=== PATIENT | male | born 1935 | race Caucasian/White ===

== ENCOUNTER 2020-10-31 12:19 | Inpatient (IN) | payer MEDICARE, OTHER, SELFPAY ==
[2020-10-31] VITALS (12 sets, daily range): BP systolic 115–136; BP diastolic 59–82; PULSE 68–102; RESP 18–26; TEMP 36.3–36.8; O2SAT 90–100; BMI 30.4; BMI 30.3
--- NOTE | 2020-10-31 12:41 | RAD_ITS ---
STUDY: X-RAY CHEST REASON FOR EXAM: Male, 84 years old. sob TECHNIQUE: Single AP portable view of the chest. COMPARISON: None. FINDINGS: Poor inspiration with some bibasilar atelectasis. There is no demonstrated pleural abnormality. There is moderate cardiac enlargement. Normal mediastinum and suzette. Normal visualized pulmonary arteries. Normal visualized aortic arch and descending thoracic aorta. Normal visualized thoracic spine. Normal visualized ribs, clavicles, and shoulders. There is no demonstrated abnormality of the visualized soft tissue structures of the upper abdomen. RAD/Chest 1 View (Portable) IMPRESSION: Poor inspiration with some bibasilar atelectasis. Electronically Signed: Sreedhar Carrero MD at 13:39 EDT Tel , Service support ,
--- NOTE | 2020-10-31 12:41 | EKG12_ITS ---
Test Reason : Blood Pressure : / mmHG Vent. Rate : 072 BPM Atrial Rate : 208 BPM P-R Int : 000 ms QRS Dur : 096 ms QT Int : 380 ms P-R-T Axes : -88 131 063 degrees QTc Int : 416 ms Atrial flutter with variable A-V block Right axis deviation Low voltage QRS Cannot rule out Anterior infarct , age undetermined Abnormal ECG Confirmed by CARY CAMACHO, PRAVEENA ([id number]), editor school photograph RAMIRO CURRIE ([id number]) on 11/01/2020 1:03:35 PM Referred By: MONTEZ Confirmed By:PRAVEENA TOWNSEND MD
--- NOTE | 2020-10-31 12:43 | EDS_ITS ---
HPI History of Present Illness Chief Complaint: Shortness of Breath Informant: patient and family Narrative Narrative: 84-year-old male presenting with shortness of breath. This has been progressively worsening over the past couple of weeks. He was diagnosed with CHF on October 11. He was started on Lasix and his HCTZ was stopped at that time. He has gained 18 pounds in the past couple of weeks. Family is concerned about his increasing leg swelling and increasing shortness of breath. His shortness of breath is worse with exertion. He denies chest pain. Denies fever. He had Covid vaccines in June and July. He has a history of A. fib on Coumadin. 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 Prior similar symptoms: Yes Recent Illness/Hospitalization: No PFSH PFSH Medical History Atrial fibrillation CHF exacerbation Congestive heart failure (CHF) Diabetes History of alcohol use History of CVA (cerebrovascular accident) Hyperlipemia Hypertension Macular degeneration Smoker Home Medications Cardura XL 4 mg PO DAILY 12/18/13 [History Last Taken Unknown] PreserVision AREDS-2 1 ea PO DAILY 12/18/13 [History Last Taken Unknown] aspirin 81 mg PO DAILY@0800 12/18/13 [History Last Taken Unknown] atorvastatin 20 mg PO QHS 12/18/13 [History Last Taken Unknown] glimepiride 2 mg PO DINNER 12/18/13 [History Last Taken Unknown] losartan 150 mg PO DAILY 12/18/13 [History Last Taken Unknown] metformin 1,000 mg PO BIDCM 12/18/13 [History Last Taken Unknown] furosemide 20 mg PO DAILY 10/31/20 [History Last Taken Unknown] metoprolol tartrate 50 mg PO BID 10/31/20 [History Last Taken Unknown] verapamil 180 mg PO BID 10/31/20 [History Last Taken Unknown] warfarin [Coumadin] 2.5 mg PO MO 10/31/20 [History Last Taken Unknown] warfarin [Coumadin] 5 mg PO SUTUWETHFRSA 10/31/20 [History Last Taken Unknown] Allergy/AdvReac Type Severity Reaction Status Date / Time atenolol Allergy Other Verified 10/31/20 12:21 Social History Smoking Status: Current every day smoker ROS ROS ED Constitutional Constitutional ED: Denies fever(s) Eyes Eyes: Denies change in vision ENT ENT ED: Denies rhinorrhea or sore throat Cardiovascular Cardiovascular: Denies chest pain or palpitations Respiratory/Chest Respiratory/Chest: Reports cough and dyspnea Gastrointestinal Gastrointestinal: Denies abdominal pain, diarrhea, nausea or vomiting Genitourinary Genitourinary ED: Denies dysuria Musculoskeletal Musculoskeletal: Denies myalgias Integumentary Denies rash Neurologic Neurologic: Denies headache(s) Endocrine Endocrinology: Denies polyuria EXAM Physical Exam Const Vital Signs: 10/31/20 12:21 10/31/20 12:52 10/31/20 13:06 Temperature 97.3 F L 97.3 F L Temperature Source Temporal Oral Pulse Rate 102 H 68 Respiratory Rate 21 H 26 H Respiratory Effort Short of Breath Respiratory Depth Normal Respiratory Pattern Normal Blood Pressure 128/64 H 115/63 Blood Pressure Mean 85 80 Pulse Ox 90 100 99 Oxygen Delivery Method Room Air Nasal Cannula Nasal Cannula Oxygen Flow Rate (L/min) 2 2 Positive well nourished and well developed General Appearance ED: well developed HEENT Reports normocephalic and head/scalp atraumatic Eyes PERRL and EOMs intact bilaterally Neck supple General: Negative for tenderness Chest Wall inspection of chest normal Resp normal respiratory effort and clear to auscultation bilaterally Cardio regular rate and regular rhythm GI non-tender Inspection: abdominal distention Palpation: soft; Negative for guarding or rebound tenderness present no CVA tenderness Extremity normal to inspection Extremity Narrative: Symmetric bilateral lower extremity edema General Extremety ED: Yes edema General Extremity: edema Neuro oriented x3 Sensorium / Orientation: alert Psych mental status grossly normal Skin no rashes or lesions noted MDM MDM MDM Narrative Medical decision making narrative: Patient was given Lasix IV. He is resting comfortably on reevaluation. Will discuss with hospitalist for admission. Lab Data Attestation: I reviewed the patient's lab results. Labs: Laboratory Results - last 24 hr 10/31/20 10/31/20 10/31/20 12:42 12:42 12:42 WBC 7.5 RBC 4.80 Hgb 13.2 Hct 41.3 MCV 86.0 MCH 27.5 MCHC 32.0 RDW Std Deviation 51.1 H RDW Coeff of Lennie 16.3 H Plt Count 202 MPV 9.9 Immature Gran % (Auto) 0.300 Neut % (Auto) 75.9 H Lymph % (Auto) 13.4 L [place] % (Auto) 9.7 Eos % (Auto) 0.3 Baso % (Auto) 0.4 Absolute Neuts (auto) 5.7 Absolute Lymphs (auto) 1.01 Nucleated RBC % 0 PT 41.9 H INR 4.5 H* Sodium 133 L Potassium 4.5 Chloride 95 L Carbon Dioxide 31.0 Anion Gap 7 BUN 29 H Creatinine 1.39 H Estim Creat Clear Calc 43.64 Est GFR (MDRD) Af Amer 63 Est GFR (MDRD) Non-Af 52 L BUN/Creatinine Ratio 20.9 H Glucose 247 H Calcium 9.0 Total Bilirubin 0.50 AST 26 ALT 44 Alkaline Phosphatase 127 H Troponin I < 0.015 B-Natriuretic Peptide Total Protein 7.1 Albumin 3.4 Globulin 3.7 Albumin/Globulin Ratio 0.9 10/31/20 12:42 WBC RBC Hgb Hct MCV MCH MCHC RDW Std Deviation RDW Coeff of Lennie Plt Count MPV Immature Gran % (Auto) Neut % (Auto) Lymph % (Auto) [place] % (Auto) Eos % (Auto) Baso % (Auto) Absolute Neuts (auto) Absolute Lymphs (auto) Nucleated RBC % PT INR Sodium Potassium Chloride Carbon Dioxide Anion Gap BUN Creatinine Estim Creat Clear Calc Est GFR (MDRD) Af Amer Est GFR (MDRD) Non-Af BUN/Creatinine Ratio Glucose Calcium Total Bilirubin AST ALT Alkaline Phosphatase Troponin I B-Natriuretic Peptide 254.5 H Total Protein Albumin Globulin Albumin/Globulin Ratio Radiography Chest X-Ray - ED: 1 View, Read by ED Physician and Read by Radiologist Diagnostic Testing: Radiology Impression Chest X-Ray 10/31/20 12:41 IMPRESSION: Poor inspiration with some bibasilar atelectasis. Electronically Signed: Sreedhar Carrero MD at 13:39 EDT Tel , Service support , EKG Initial EKG: Attestation: I personally reviewed and interpreted this EKG as follows: Interpretation: Atrial Flutter Prior EKG tracings: available for review Prior: Unchanged Discharge Plan Triage Chief Complaint: Shortness of Breath ED Provider: Xochitl Richards Dx/Rx/DC Orders Clinical Impression: CHF exacerbation Prescriptions: No Action atorvastatin 20 MG tablet 20 mg PO QHS RF: 0 glimepiride 2 MG tablet 2 mg PO DINNER RF: 0 metformin 1,000 MG tablet 1,000 mg PO BIDCM RF: 0 aspirin 81 MG tablet,chewable 81 mg PO DAILY@0800 RF: 0 losartan 100 MG tablet 150 mg PO DAILY RF: 0 Cardura XL 4 MG tablet extended release 24hr 4 mg PO DAILY RF: 0 PreserVision AREDS-2 1 EACH capsule 1 ea PO DAILY RF: 0 verapamil 180 mg tablet extended release 180 mg PO BID RF: 0 warfarin [Coumadin] 2.5 mg Tablet 2.5 mg PO MO RF: 0 warfarin [Coumadin] 5 mg Tablet 5 mg PO SUTUWETHFRSA RF: 0 metoprolol tartrate 50 mg tablet 50 mg PO BID RF: 0 furosemide 20 mg tablet 20 mg PO DAILY RF: 0 Primary Care Provider: Carl Loyd Referrals: Carl Loyd MD [Primary Care Provider] - Disposition Disposition: Acute Care Hospital [facility]
[2020-10-31 12:54] LABS: Absolute Lymphocyte Count 1.01 X10^3/uL (0.83-4.51); Absolute Neutrophil Count 5.7 X10^3/uL (2.0-7.7); Basophil# 0.03 X10^3/uL; Basophil% 0.4 % (0-1); Eosinophil# 0.02 X10^3/uL; Eosinophils% 0.3 % (0-5); Hematocrit 41.3 % (40-54); Hemoglobin 13.2 g/dL (13.0-16.5); Lymphocyte # 1.01 X10^3/ul (0.83-4.51); Lymphocyte % 13.4 % (19-41); Mean Corpuscular Hgb 27.5 pg (27.0-32.0); Mean Platelet Vol. 9.9 fl (6.2-12.0); Monocyte# 0.73 X10^3/uL; Monocyte% 9.7 % (0-10); NRBC Flagged by Analyzer 0 % (0-5); Neutrophil % 75.9 % (47-70); Platelet Count 202 K/mm3 (150-450); RBC Distribution Width CV 16.3 % (11.6-14.6); RBC Distribution Width SD 51.1 fl (35.1-43.9); White Blood Count 7.5 K/mm3 (4.4-11.0)
[2020-10-31 13:11] LABS: BUN 29 mg/dL (7-18); Creatinine, Serum 1.39 mg/dL (0.70-1.30); EST Glomerular Filtration Rate 52 mL/min (>60); Estimated Creatinine Clearance 43.64 ml/min; Glucose 247 mg/dL (74-106)
[2020-10-31 13:12] LABS: ALB/GLOB Ratio 0.9 RATIO (0.9-2.4); AST(SGOT) 26 U/L (15-37); Alanine Aminotransfer ALT/SGPT 44 U/L (16-61); Albumin, Serum 3.4 g/dL (3.2-5.0); Alkaline Phosphatase 127 U/L (45-117); Anion Gap 7 (5-15); BUN/Creat Ratio 20.9 RATIO (10-20); Chloride 95 mmol/L (98-107); Est Glom Filt Rate - Afr Amer 63 mL/min (>60); Globulin 3.7 g/dL (2.2-4.2); Potassium 4.5 mmol/L (3.5-5.1); Protein, Total 7.1 g/dL (6.4-8.2); Sodium Level 133 mmol/L (136-145)
[2020-10-31 13:15] LABS: Prothrombin Time (Protime)PT. 41.9 SECONDS (11.7-14.9)
[2020-10-31 13:24] LABS: International Normalized Ratio 4.5
[2020-10-31 13:38] LABS: BNP,B-Type NATRIURETIC PEPTIDE 254.5 pg/mL (0-100)
--- NOTE | 2020-10-31 14:02 | HP.PCM.HOS_ITS ---
Documented by User: Chen Benjamin NP, [employer] 10/31/20 14:26 HPI - General HPI Narrative LIV GAGNON, is a 84 M who presents who presents to the emergency room due to worsening shortness of breath and edema. Patient reports this is been ongoing for the past few months however recently worsened. He reports worsening orthopnea, increased weight gain, lower extremity swelling. He reports approximate 15 to 20 pound weight gain over the past month or more. He reports he had a recent echocardiogram 10/14/2020 which showed a leaky valve. He states he was placed on Lasix by his primary care provider which has not improved his symptoms. He is to follow-up with cardiology in [place] in November. He denies history of heart failure. Denies chest pain. Reports intermittent cough which is recently worsened however somewhat chronic in nature as he has extensive smoking history. Denies productive cough, fever, chills. Patient has a past medical history of chronic atrial fibrillation on anticoagulation with Coumadin, history of CVA, chronic kidney disease stage III, type 2 diabetes mellitus, brain meningioma, BPH, tobacco dependence. PFSH Medical History Atrial fibrillation CHF exacerbation Congestive heart failure (CHF) Diabetes History of alcohol use History of CVA (cerebrovascular accident) Hyperlipemia Hypertension Macular degeneration Smoker Home Medications Cardura XL 4 mg PO DAILY 12/18/13 [History Last Taken Unknown] PreserVision AREDS-2 1 ea PO DAILY 12/18/13 [History Last Taken Unknown] aspirin 81 mg PO DAILY@0800 12/18/13 [History Last Taken Unknown] atorvastatin 20 mg PO QHS 12/18/13 [History Last Taken Unknown] glimepiride 2 mg PO DINNER 12/18/13 [History Last Taken Unknown] losartan 150 mg PO DAILY 12/18/13 [History Last Taken Unknown] metformin 1,000 mg PO BIDCM 12/18/13 [History Last Taken Unknown] furosemide 20 mg PO DAILY 10/31/20 [History Last Taken Unknown] metoprolol tartrate 50 mg PO BID 10/31/20 [History Last Taken Unknown] verapamil 180 mg PO BID 10/31/20 [History Last Taken Unknown] warfarin [Coumadin] 2.5 mg PO MO 10/31/20 [History Last Taken Unknown] warfarin [Coumadin] 5 mg PO SUTUWETHFRSA 10/31/20 [History Last Taken Unknown] Allergy/AdvReac Type Severity Reaction Status Date / Time atenolol Allergy Other Verified 10/31/20 12:21 other (Denies known maternal and paternal family history including cardiac history.) no surgical history Social History (Updated 10/31/20 @ 14:18 by Chen Benjamin NP, [employer]) household members: spouse Smoking Status: Current every day smoker substance use type: does not use ROS Constitutional Constitutional: Reports change in weight, fatigue and other Details: +15-20lb ; Denies chills, fever(s) or weakness Cardiovascular Cardiovascular: Reports edema; Denies chest pain, lightheadedness, palpitations or syncope Respiratory/Chest Respiratory/Chest: Reports cough, shortness of breath at rest and shortness of breath with exertion; Denies dyspnea, productive cough or wheezing Gastrointestinal Gastrointestinal: Denies abdominal pain, constipation, diarrhea, nausea or vomiting Genitourinary Genitourinary: Denies burning urination, difficulty urinating, dysuria, hematuria, urinary frequency, urinary incontinence or urinary urgency Musculoskeletal Musculoskeletal: Denies back pain or joint pain Neurologic Neurologic: Denies abnormal speech, confusion, dizziness, focal weakness, numbness, paresthesias, seizure-like activity or syncope Psychiatric Psychiatric: Denies anxiety or depression Hematologic/Lymphatic Hematologic/Lymphatic: Denies anemia, easy bleeding or easy bruising Allergic/Immunologic Allergic/Immunologic: Denies hives or asthma Vital Signs Vital Signs Vital Signs: 10/31/20 12:21 10/31/20 12:52 10/31/20 13:06 Temperature 97.3 F L 97.3 F L Temperature Source Temporal Oral Pulse Rate 102 H 68 Respiratory Rate 21 H 26 H Respiratory Effort Short of Breath Respiratory Depth Normal Respiratory Pattern Normal Blood Pressure 128/64 H 115/63 Blood Pressure Mean 85 80 Pulse Ox 90 100 99 Oxygen Delivery Method Room Air Nasal Cannula Nasal Cannula Oxygen Flow Rate (L/min) 2 2 Physical Exam Const alert, oriented x3 and no apparent distress Orientation / Consciousness: awake, oriented to person, oriented to place and oriented to time HEENT normocephalic and moist oral mucous membranes Eyes PERRL, EOMs intact bilaterally and conjunctivae normal Neck no lymphadenopathy Resp clear to auscultation bilaterally Effort and Inspection: decreased respiratory effort Auscultation: diminished lung sounds Cardio Cardio Narrative: atrial flutter, rate controlled Peripheral Pulses: pulses 2+ throughout GI normal to inspection, nondistended, normoactive bowel sounds, non-tender and non-distended Extremity normal to inspection General Extremity: edema bilateral lower extremity Details: moderate Skin no rashes or lesions noted Lesions: no lesions Rashes: no rashes Trauma: no lacerations or abrasions Neuro oriented x3 Sensorium / Orientation: awake and alert Psych affect normal Lab / Micro Data Result Diagrams: 10/31/20 12:42 10/31/20 12:42 Labs: Laboratory Results - last 24 hr 10/31/20 10/31/20 10/31/20 12:42 12:42 12:42 WBC 7.5 RBC 4.80 Hgb 13.2 Hct 41.3 MCV 86.0 MCH 27.5 MCHC 32.0 RDW Std Deviation 51.1 H RDW Coeff of Lennie 16.3 H Plt Count 202 MPV 9.9 Immature Gran % (Auto) 0.300 Neut % (Auto) 75.9 H Lymph % (Auto) 13.4 L [place] % (Auto) 9.7 Eos % (Auto) 0.3 Baso % (Auto) 0.4 Absolute Neuts (auto) 5.7 Absolute Lymphs (auto) 1.01 Nucleated RBC % 0 PT 41.9 H INR 4.5 H* Sodium 133 L Potassium 4.5 Chloride 95 L Carbon Dioxide 31.0 Anion Gap 7 BUN 29 H Creatinine 1.39 H Estim Creat Clear Calc 43.64 Est GFR (MDRD) Af Amer 63 Est GFR (MDRD) Non-Af 52 L BUN/Creatinine Ratio 20.9 H Glucose 247 H Calcium 9.0 Total Bilirubin 0.50 AST 26 ALT 44 Alkaline Phosphatase 127 H Troponin I < 0.015 B-Natriuretic Peptide Total Protein 7.1 Albumin 3.4 Globulin 3.7 Albumin/Globulin Ratio 0.9 10/31/20 12:42 WBC RBC Hgb Hct MCV MCH MCHC RDW Std Deviation RDW Coeff of Lennie Plt Count MPV Immature Gran % (Auto) Neut % (Auto) Lymph % (Auto) [place] % (Auto) Eos % (Auto) Baso % (Auto) Absolute Neuts (auto) Absolute Lymphs (auto) Nucleated RBC % PT INR Sodium Potassium Chloride Carbon Dioxide Anion Gap BUN Creatinine Estim Creat Clear Calc Est GFR (MDRD) Af Amer Est GFR (MDRD) Non-Af BUN/Creatinine Ratio Glucose Calcium Total Bilirubin AST ALT Alkaline Phosphatase Troponin I B-Natriuretic Peptide 254.5 H Total Protein Albumin Globulin Albumin/Globulin Ratio Radiology Impression Chest X-Ray 10/31/20 12:41 IMPRESSION: Poor inspiration with some bibasilar atelectasis. Electronically Signed: Sreedhar Carrero MD at 13:39 EDT Tel , Service support , Assessment & Plan Assessment/Plan (1) CHF exacerbation: PLAN: 1. Acute hypoxic respiratory insufficiency secondary to acute heart failure with preserved ejection fraction-BNP 254. Patient requiring 2 L supplemental oxygen. Recent echocardiogram September 2020 at [facility], attempted to obtain records via [employer] however no official report found. Will request records. Follow-up documentation states ejection fraction normal. Right-sided enlargement possibly from leaky valve. IV Lasix. Strict I&O. Daily weight. Trend enzymes. Check TSH, mag. Rolando wraps bilateral lower extremities. 2. Hypertension-stable, on losartan, metoprolol, verapamil. 3. Hyperlipidemia-continue statin. 4. Chronic atrial fibrillation on anticoagulation with Coumadin-hold Coumadin, trend INR. INR at admission 4.5. Rate controlled. Continue metoprolol. 5. History of CVA-on aspirin, statin, Coumadin. 6. Chronic kidney disease stage IIIa-at baseline, trend BMP. 7. Type 2 diabetes mellitus-hold oral regimen. Accu-Cheks with sliding scale i nsulin. 8. Brain meningioma-continue outpatient follow-up with neurology. 9. BPH-on Cardura. 10. Tobacco dependence-encouraged cessation. Declines nicotine replacement patch. DVT prophylaxis-Coumadin on hold, supratherapeutic INR CODE STATUS: Discussed in length with patient and who is healthcare primary turning differences in CODE STATUS including full code, DNR CCA and DNR CC. Patient elects DNR CCA no intubation. This patient was seen by SHWETHA Norris under the supervision of Dr. Medina. Documented by User: Dr. Melissa Medina MD 10/31/20 14:36 PFS Medical History Atrial fibrillation CHF exacerbation Congestive heart failure (CHF) Diabetes History of alcohol use History of CVA (cerebrovascular accident) Hyperlipemia Hypertension Macular degeneration Smoker Home Medications Cardura XL 4 mg PO DAILY 12/18/13 [History Last Taken Unknown] PreserVision AREDS-2 1 ea PO DAILY 12/18/13 [History Last Taken Unknown] aspirin 81 mg PO DAILY@0800 12/18/13 [History Last Taken Unknown] atorvastatin 20 mg PO QHS 12/18/13 [History Last Taken Unknown] glimepiride 2 mg PO DINNER 12/18/13 [History Last Taken Unknown] losartan 150 mg PO DAILY 12/18/13 [History Last Taken Unknown] metformin 1,000 mg PO BIDCM 12/18/13 [History Last Taken Unknown] furosemide 20 mg PO DAILY 10/31/20 [History Last Taken Unknown] metoprolol tartrate 50 mg PO BID 10/31/20 [History Last Taken Unknown] verapamil 180 mg PO BID 10/31/20 [History Last Taken Unknown] warfarin [Coumadin] 2.5 mg PO MO 10/31/20 [History Last Taken Unknown] warfarin [Coumadin] 5 mg PO SUTUWETHFRSA 10/31/20 [History Last Taken Unknown] Allergy/AdvReac Type Severity Reaction Status Date / Time atenolol Allergy Other Verified 10/31/20 12:21 Social History (Updated 10/31/20 @ 14:18 by Chen Benjamin NP, [employer]) household members: spouse Smoking Status: Current every day smoker substance use type: does not use Lab / Micro Data Result Diagrams: 10/31/20 12:42 10/31/20 12:42
[2020-10-31 14:16] LABS: Magnesium 1.7 mg/dL (1.6-2.6)
[2020-10-31] MEDS: Furosemide 40 MG/4 ML Vial IV ×2 (14:27→17:06)
[2020-10-31 14:51] LABS: Bedside Glucose 173 mg/dL (70-110)
[2020-10-31 15:21] LABS: Thyroid Stim Hormone (TSH) 3.27 uIU/mL (0.358-3.74)
[2020-10-31 16:11] LABS: Bedside Glucose 150 mg/dL (70-110)
[2020-10-31] MEDS: Albuterol 2.5 MG/3 ML VIAL.NEB. INHALATION (16:18)
[2020-10-31] MEDS: Insulin Lispro 100 UNIT/ML INSULN.PEN SC ×2 (16:22→22:33)
[2020-10-31] MEDS: Doxazosin 4 MG Tablet 8 MG PO (21:05)
[2020-10-31] MEDS: Famotidine 20 MG Tablet PO (21:06)
[2020-10-31] MEDS: Atorvastatin Calcium 20 MG Tablet PO (21:06)
[2020-10-31] MEDS: Verapamil SR 180 MG CAPSULE PO (21:06)
[2020-10-31] MEDS: Metoprolol Tartrate 50 MG Tablet PO (21:06)
[2020-10-31 22:41] LABS: Bedside Glucose 168 mg/dL (70-110)
[2020-11-01] VITALS (17 sets, daily range): BP systolic 110–136; BP diastolic 44–73; PULSE 60–146; RESP 16–22; TEMP 36.7–37.1; O2SAT 2–97
[2020-11-01 05:58] LABS: Absolute Lymphocyte Count 1.19 X10^3/uL (0.83-4.51); Absolute Neutrophil Count 3.2 X10^3/uL (2.0-7.7); Basophil# 0.03 X10^3/uL; Basophil% 0.6 % (0-1); Eosinophil# 0.04 X10^3/uL; Eosinophils% 0.8 % (0-5); Hematocrit 37.5 % (40-54); Hemoglobin 12.1 g/dL (13.0-16.5); Lymphocyte # 1.19 X10^3/ul (0.83-4.51); Lymphocyte % 22.7 % (19-41); Mean Corp Hgb Conc 32.3 g/dL (32-36); Mean Corpuscular Hgb 28.1 pg (27.0-32.0); Mean Platelet Vol. 10.2 fl (6.2-12.0); Monocyte% 15.3 % (0-10); NRBC Flagged by Analyzer 0 % (0-5); Neutrophil # 3.16 X10^3/uL (2.7-7.7); Neutrophil % 60.2 % (47-70); Platelet Count 187 K/mm3 (150-450); RBC Distribution Width CV 16.2 % (11.6-14.6); RBC Distribution Width SD 51.6 fl (35.1-43.9); Red Blood Count 4.31 M/mm3 (4.6-6.2); White Blood Count 5.2 K/mm3 (4.4-11.0)
[2020-11-01 06:10] LABS: Prothrombin Time (Protime)PT. 40.2 SECONDS (11.7-14.9)
[2020-11-01 06:11] LABS: International Normalized Ratio 4.3
[2020-11-01 06:28] LABS: ALB/GLOB Ratio 0.9 RATIO (0.9-2.4); AST(SGOT) 22 U/L (15-37); Alanine Aminotransfer ALT/SGPT 42 U/L (16-61); Alkaline Phosphatase 93 U/L (45-117); Anion Gap 4 (5-15); BUN 35 mg/dL (7-18); BUN/Creat Ratio 24.3 RATIO (10-20); Calcium,Total 8.5 mg/dL (8.5-10.1); Chloride 98 mmol/L (98-107); Cholesterol 75 mg/dL (200); Creatinine, Serum 1.44 mg/dL (0.70-1.30); EST Glomerular Filtration Rate 50 mL/min (>60); Est Glom Filt Rate - Afr Amer 60 mL/min (>60); Estimated Creatinine Clearance 40.84 ml/min; Globulin 3.2 g/dL (2.2-4.2); Glucose 100 mg/dL (74-106); High Density Lipoprotein 40 mg/dL; Potassium 4.1 mmol/L (3.5-5.1); Protein, Total 6.2 g/dL (6.4-8.2); Sodium Level 136 mmol/L (136-145); Triglycerides 61 mg/dL; Very Low Density Lipoprotein 12 mg/dL (5-40)
[2020-11-01 07:06] LABS: Bedside Glucose 115 mg/dL (70-110)
[2020-11-01] MEDS: Famotidine 20 MG Tablet PO ×2 (08:24→21:59)
[2020-11-01] MEDS: Verapamil SR 180 MG CAPSULE PO ×2 (08:24→21:58)
[2020-11-01] MEDS: Aspirin 81 MG TAB.CHEW PO (08:24)
[2020-11-01] MEDS: Losartan Potassium 50 MG Tablet 150 MG PO (08:24)
[2020-11-01] MEDS: Furosemide 40 MG/4 ML Vial IV ×2 (08:25→17:17)
[2020-11-01] MEDS: 0.9% Saline Lock 10 ML Syringe IV ×2 (08:25→17:17)
[2020-11-01] MEDS: Metoprolol Tartrate 50 MG Tablet PO ×2 (08:25→21:58)
[2020-11-01] MEDS: Insulin Lispro 100 UNIT/ML INSULN.PEN SC ×3 (10:51→21:57)
[2020-11-01 10:56] LABS: Bedside Glucose 229 mg/dL (70-110)
--- NOTE | 2020-11-01 11:30 | PN.HOSP_ITS ---
Documented by User: Chen Benjamin NP, [employer]-C 11/01/20 11:41 Subjective Subjective: Patient seen and examined. Reports improvement in shortness of breath. Remains on 3 L supplemental oxygen. Patient reports lower extremity swelling improving. Objective Data Objective Data Vital Signs: Vital Signs Temp Pulse Resp BP Pulse Ox 98.4 F 110 H 18 130/71 H 94 11/01/20 08:20 11/01/20 08:25 11/01/20 08:20 11/01/20 08:25 11/01/20 08:37 Oxygen Flow Rate (L/min) 3 Oxygen Delivery Method Nasal Cannula Weight: 216 lb 14.958 oz Body Mass Index (BMI) 30.3 Intake & Output: Intake and Output for Last 24 Hours 10/30/20 10/31/20 11/01/20 23:59 23:59 23:59 Intake Total 450 / 450 Output Total 550 / 550 Balance 450 / 0 -550 / -550 Lab / Micro Data Result Diagrams: 11/01/20 05:28 11/01/20 05:28 Labs: Laboratory Results - last 24 hr 10/31/20 10/31/20 10/31/20 12:42 12:42 12:42 WBC 7.5 RBC 4.80 Hgb 13.2 Hct 41.3 MCV 86.0 MCH 27.5 MCHC 32.0 RDW Std Deviation 51.1 H RDW Coeff of Lennie 16.3 H Plt Count 202 MPV 9.9 Immature Gran % (Auto) 0.300 Neut % (Auto) 75.9 H Lymph % (Auto) 13.4 L [place] % (Auto) 9.7 Eos % (Auto) 0.3 Baso % (Auto) 0.4 Absolute Neuts (auto) 5.7 Absolute Lymphs (auto) 1.01 Nucleated RBC % 0 PT 41.9 H INR 4.5 H* Sodium 133 L Potassium 4.5 Chloride 95 L Carbon Dioxide 31.0 Anion Gap 7 BUN 29 H Creatinine 1.39 H Estim Creat Clear Calc 43.64 Est GFR (MDRD) Af Amer 63 Est GFR (MDRD) Non-Af 52 L BUN/Creatinine Ratio 20.9 H Glucose 247 H Calcium 9.0 Magnesium Total Bilirubin 0.50 AST 26 ALT 44 Alkaline Phosphatase 127 H Troponin I < 0.015 B-Natriuretic Peptide Total Protein 7.1 Albumin 3.4 Globulin 3.7 Albumin/Globulin Ratio 0.9 Triglycerides Cholesterol LDL Cholesterol VLDL Cholesterol HDL Cholesterol TSH POC Glucose 10/31/20 10/31/20 10/31/20 12:42 12:42 12:42 WBC RBC Hgb Hct MCV MCH MCHC RDW Std Deviation RDW Coeff of Lennie Plt Count MPV Immature Gran % (Auto) Neut % (Auto) Lymph % (Auto) [place] % (Auto) Eos % (Auto) Baso % (Auto) Absolute Neuts (auto) Absolute Lymphs (auto) Nucleated RBC % PT INR Sodium Potassium Chloride Carbon Dioxide Anion Gap BUN Creatinine Estim Creat Clear Calc Est GFR (MDRD) Af Amer Est GFR (MDRD) Non-Af BUN/Creatinine Ratio Glucose Calcium Magnesium 1.7 Total Bilirubin AST ALT Alkaline Phosphatase Troponin I B-Natriuretic Peptide 254.5 H Total Protein Albumin Globulin Albumin/Globulin Ratio Triglycerides Cholesterol LDL Cholesterol VLDL Cholesterol HDL Cholesterol TSH 3.27 POC Glucose 10/31/20 10/31/20 10/31/20 14:46 15:57 22:32 WBC RBC Hgb Hct MCV MCH MCHC RDW Std Deviation RDW Coeff of Lennie Plt Count MPV Immature Gran % (Auto) Neut % (Auto) Lymph % (Auto) [place] % (Auto) Eos % (Auto) Baso % (Auto) Absolute Neuts (auto) Absolute Lymphs (auto) Nucleated RBC % PT INR Sodium Potassium Chloride Carbon Dioxide Anion Gap BUN Creatinine Estim Creat Clear Calc Est GFR (MDRD) Af Amer Est GFR (MDRD) Non-Af BUN/Creatinine Ratio Glucose Calcium Magnesium Total Bilirubin AST ALT Alkaline Phosphatase Troponin I B-Natriuretic Peptide Total Protein Albumin Globulin Albumin/Globulin Ratio Triglycerides Cholesterol LDL Cholesterol VLDL Cholesterol HDL Cholesterol TSH POC Glucose 173 H 150 H 168 H 11/01/20 11/01/20 11/01/20 05:28 05:28 05:28 WBC 5.2 RBC 4.31 L Hgb 12.1 L Hct 37.5 L MCV 87.0 MCH 28.1 MCHC 32.3 RDW Std Deviation 51.6 H RDW Coeff of Lennie 16.2 H Plt Count 187 MPV 10.2 Immature Gran % (Auto) 0.400 Neut % (Auto) 60.2 Lymph % (Auto) 22.7 [place] % (Auto) 15.3 H Eos % (Auto) 0.8 Baso % (Auto) 0.6 Absolute Neuts (auto) 3.2 Absolute Lymphs (auto) 1.19 Nucleated RBC % 0 PT 40.2 H INR 4.3 H* Sodium 136 Potassium 4.1 Chloride 98 Carbon Dioxide 34.0 H Anion Gap 4 L BUN 35 H Creatinine 1.44 H Estim Creat Clear Calc 40.84 Est GFR (MDRD) Af Amer 60 Est GFR (MDRD) Non-Af 50 L BUN/Creatinine Ratio 24.3 H Glucose 100 Calcium 8.5 Magnesium Total Bilirubin 0.50 AST 22 ALT 42 Alkaline Phosphatase 93 Troponin I B-Natriuretic Peptide Total Protein 6.2 L Albumin 3.0 L Globulin 3.2 Albumin/Globulin Ratio 0.9 Triglycerides 61 Cholesterol 75 LDL Cholesterol 23 VLDL Cholesterol 12 HDL Cholesterol 40 TSH POC Glucose 11/01/20 11/01/20 06:48 10:50 WBC RBC Hgb Hct MCV MCH MCHC RDW Std Deviation RDW Coeff of Lennie Plt Count MPV Immature Gran % (Auto) Neut % (Auto) Lymph % (Auto) [place] % (Auto) Eos % (Auto) Baso % (Auto) Absolute Neuts (auto) Absolute Lymphs (auto) Nucleated RBC % PT INR Sodium Potassium Chloride Carbon Dioxide Anion Gap BUN Creatinine Estim Creat Clear Calc Est GFR (MDRD) Af Amer Est GFR (MDRD) Non-Af BUN/Creatinine Ratio Glucose Calcium Magnesium Total Bilirubin AST ALT Alkaline Phosphatase Troponin I B-Natriuretic Peptide Total Protein Albumin Globulin Albumin/Globulin Ratio Triglycerides Cholesterol LDL Cholesterol VLDL Cholesterol HDL Cholesterol TSH POC Glucose 115 H 229 H Radiography Diagnostic Testing: Radiology Impression Chest X-Ray 10/31/20 12:41 IMPRESSION: Poor inspiration with some bibasilar atelectasis. Electronically Signed: Sreedhar Carrero MD at 13:39 EDT Tel , Service support , Physical Exam Const alert, oriented x3 and no apparent distress Orientation / Consciousness: awake, oriented to person, oriented to place and oriented to time HEENT normocephalic and moist oral mucous membranes Eyes PERRL, EOMs intact bilaterally and conjunctivae normal Neck no lymphadenopathy Resp clear to auscultation bilaterally Auscultation: diminished lung sounds Cardio regular rhythm and no murmurs Rate: tachycardic Peripheral Pulses: pulses 2+ throughout GI normal to inspection, nondistended, normoactive bowel sounds, non-tender and non-distended Extremity normal to inspection General Extremity: edema bilateral lower extremity Details: mild Skin no rashes or lesions noted Lesions: no lesions Rashes: no rashes Trauma: no lacerations or abrasions Neuro oriented x3 Sensorium / Orientation: awake and alert Psych affect normal Assessment & Plan Assessment/Plan (1) CHF exacerbation: PLAN: 1. Acute hypoxic respiratory insufficiency secondary to acute heart failure with preserved ejection fraction-BNP 254. Patient requiring 2-3 L supplemental oxygen. Recent echocardiogram at [facility] demonstrated an EF of 70%, RVSP 68 mmHg, severe pulmonary hypertension, moderately severe tricuspid valve regurgitation. IV Lasix. Strict I&O. Daily weight. Rolando wraps bilateral lower extremities. Discussed with patient seeing [facility] in hospital or continuing cardiology follow-up with [facility]. Patient elects to continue follow-up with [facility] cardiology and has upcoming appointment 11/26/2020. Continue with diuresis, wean oxygen as tolerated. Walking pulse ox prior to discharge. 2. Hypertension-stable, on losartan, metoprolol, verapamil. 3. Hyperlipidemia-continue statin. 4. Chronic atrial fibrillation on anticoagulation with Coumadin-hold Coumadin, trend INR. INR 4.3. Rate controlled. Continue metoprolol. 5. History of CVA-on aspirin, statin, Coumadin. 6. Chronic kidney disease stage IIIa-at baseline, trend BMP. 7. Type 2 diabetes mellitus-hold oral regimen. Accu-Cheks with sliding scale insulin. 8. Brain meningioma-continue outpatient follow-up with neurology. 9. BPH-on Cardura. 10. Tobacco dependence-encouraged cessation. Declines nicotine replacement patch. DVT prophylaxis-Coumadin on hold, supratherapeutic INR This patient was seen by SHWETHA Norris under the supervision of Dr. Silva. Documented by User: Dr. Nilay Silva, 11/01/20 19:49 Objective Data Lab / Micro Data Result Diagrams: 11/01/20 05:28 11/01/20 05:28 Assessment & Plan Assessment/Plan (1) CHF exacerbation: PLAN: Patient was seen and examined independently of Chen Benjamin, he remains on nasal cannula oxygen at this time at 3-1/2 L. On examination he appeared in good health and spirits. Vital signs as documented. Skin warm and dry and without overt rashes. Neck without JVD, neck was supple, trachea midline, thyroid was normal. Lungs-scattered expiratory wheezes are noted bilaterally, normal air movement was noted. Heart exam notable for irregular rhythm, normal sounds and absence of murmurs, rubs or gallops. Abdomen unremarkable and without evidence of organomegaly, masses, or abdominal aortic enlargement. Bowel sounds are present, abdomen is not distended. Extremities nonedematous, no cyanosis was noted, no clubbing was noted. Neuro: Cranial nerves II through XII are grossly intact, no focal motor deficits were noted, sensation to light touch and pinprick intact, motor exam 5/5 throughout. Psych: Patient is alert and oriented x3, he does not appear anxious or depressed, he does not appear agitated. Patient has a long history of smoking, he currently smokes about 1/2 pack of cigarettes a day, I think he may have a component of COPD at this time. I have decided to add aerosol treatments to the patient's medications. He will be reevaluated tomorrow. I have reviewed Chen Benjamin's progress note including her medical assessment and plan of care and with the above additions endorse it Visit Charges Inpatient E&M: 01636 Subs Hosp L2
--- NOTE | 2020-11-01 12:50 | CASEMGMT ---
CARLOS PATINO Assessment: Face to Face with pt for initial transition planning/care coordination assessment. RN SUKUMAR introduced self and role at [facility], pt voices understanding and consents to assessment. Pt is A/O x4 and answers all questions appropriately at this time. Pt sitting up in chair in no distress. Care providers, pharmacy, and demographics verified/updated. Admitting Dx: CHF exac PCP: [facility] Specialists: Denies Preferred Pharmacy: [facility] Mai Insurance: [facility], AARP Prescription Benefit: yes LNOK: Maya Shetty, Living Arrangements: Pt lives in a two story house with 6 steps to enter with . Pt reports he is I in ADL's. Denies concerns at home. 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 Transportation: Pt states he drives self and denies concerns with transportation. DME/HHC/SNF: Pt has a cane at home. Denies any previous HHC or SNF stays. Pt states no concerns with going home at time of dc. Pt states no further concerns/needs. CM to follow for any O2 needs. Advised pt to ask CM if any further question/concerns/needs arise, voices understanding. Pt Goal: Home Plan: Home with family support
[2020-11-01 16:51] LABS: Bedside Glucose 187 mg/dL (70-110)
[2020-11-01] MEDS: Doxazosin 4 MG Tablet 8 MG PO (21:58)
[2020-11-01] MEDS: Atorvastatin Calcium 20 MG Tablet PO (21:58)
[2020-11-01 22:11] LABS: Bedside Glucose 191 mg/dL (70-110)
[2020-11-02] VITALS (10 sets, daily range): BP systolic 100–135; BP diastolic 50–59; PULSE 73–97; RESP 16–24; TEMP 36.8–37.1; O2SAT 89–97
[2020-11-02 05:57] LABS: Absolute Lymphocyte Count 1.37 X10^3/uL (0.83-4.51); Absolute Neutrophil Count 3.5 X10^3/uL (2.0-7.7); Basophil# 0.02 X10^3/uL; Basophil% 0.3 % (0-1); Eosinophil# 0.04 X10^3/uL; Eosinophils% 0.7 % (0-5); Hematocrit 36.9 % (40-54); Hemoglobin 11.9 g/dL (13.0-16.5); Lymphocyte # 1.37 X10^3/ul (0.83-4.51); Mean Corp Hgb Conc 32.2 g/dL (32-36); Mean Corpuscular Hgb 27.7 pg (27.0-32.0); Mean Platelet Vol. 10.1 fl (6.2-12.0); Monocyte# 0.97 X10^3/uL; Monocyte% 16.3 % (0-10); NRBC Flagged by Analyzer 0 % (0-5); Neutrophil # 3.54 X10^3/uL (2.7-7.7); Neutrophil % 59.4 % (47-70); Platelet Count 193 K/mm3 (150-450); RBC Distribution Width CV 16.1 % (11.6-14.6); RBC Distribution Width SD 50.7 fl (35.1-43.9); Red Blood Count 4.29 M/mm3 (4.6-6.2)
[2020-11-02 06:07] LABS: International Normalized Ratio 2.3; Prothrombin Time (Protime)PT. 24.6 SECONDS (11.7-14.9)
[2020-11-02 06:26] LABS: Anion Gap 4 (5-15); BUN 43 mg/dL (7-18); BUN/Creat Ratio 27.2 RATIO (10-20); Calcium,Total 8.9 mg/dL (8.5-10.1); Chloride 100 mmol/L (98-107); Creatinine, Serum 1.58 mg/dL (0.70-1.30); EST Glomerular Filtration Rate 45 mL/min (>60); Est Glom Filt Rate - Afr Amer 54 mL/min (>60); Estimated Creatinine Clearance 37.22 ml/min; Glucose 150 mg/dL (74-106); Potassium 4.4 mmol/L (3.5-5.1); Sodium Level 139 mmol/L (136-145)
[2020-11-02] MEDS: Insulin Lispro 100 UNIT/ML INSULN.PEN SC ×2 (06:34→10:57)
[2020-11-02 06:41] LABS: Bedside Glucose 178 mg/dL (70-110)
[2020-11-02] MEDS: Ipratropium/Albuterol Sulfate 3 ML AMPUL.NEB INHALATION ×2 (07:03→13:08)
[2020-11-02] MEDS: Budesonide Respules 0.5 MG/2 ML AMPUL.NEB. INHALATION (07:03)
[2020-11-02] MEDS: Verapamil SR 180 MG CAPSULE PO (08:36)
[2020-11-02] MEDS: 0.9% Saline Lock 10 ML Syringe IV (08:36)
[2020-11-02] MEDS: Losartan Potassium 50 MG Tablet 150 MG PO (08:36)
[2020-11-02] MEDS: Famotidine 20 MG Tablet PO (08:36)
[2020-11-02] MEDS: Aspirin 81 MG TAB.CHEW PO (08:36)
[2020-11-02] MEDS: Metoprolol Tartrate 50 MG Tablet PO (08:36)
[2020-11-02] MEDS: Furosemide 40 MG/4 ML Vial IV (08:37)
[2020-11-02 11:06] LABS: Bedside Glucose 307 mg/dL (70-110)
--- NOTE | 2020-11-02 12:00 | PCM.DC ---
Discharge Instructions Diet Discharge Diet: 8 Cup Fluid Restriction and 2000 mg Sodium Diet Activity Discharge Activity: Return to Normal Activity Dressing / Incision Call your doctor if you observe: Shortness of breath, Dizziness and Chest pain Follow Up Care Test Results: Test results from this visit will be discussed in further detail at your follow-up appointment, if applicable. Discharge Plan Admission Admit Date/Time: 10/31/20 13:58 Attending Provider: Nilay Silva Primary Care Provider: Carl Loyd Instructions Additional Instructions / Restrictions: Follow-up with [facility] cardiology as scheduled 11/26/2020. Discharge Orders/Prescriptions Prescriptions: New furosemide [Lasix] 40 mg tablet 40 mg PO BID Qty: 60 RF: 0 Continued atorvastatin 20 MG tablet 20 mg PO QHS RF: 0 glimepiride 2 MG tablet 2 mg PO DINNER RF: 0 metformin 1,000 MG tablet 1,000 mg PO BIDCM RF: 0 aspirin 81 MG tablet,chewable 81 mg PO DAILY@0800 RF: 0 losartan 100 MG tablet 150 mg PO DAILY RF: 0 PreserVision AREDS-2 1 EACH capsule 1 ea PO DAILY RF: 0 verapamil 180 mg tablet extended release 180 mg PO BID RF: 0 warfarin 2.5 mg Tablet 2.5 mg PO MO RF: 0 warfarin 5 mg Tablet 5 mg PO SUTUWETHFRSA RF: 0 metoprolol tartrate 50 mg tablet 50 mg PO BID RF: 0 doxazosin [Cardura] 8 mg tablet 8 mg PO QHS RF: 0 Discontinued furosemide 20 mg tablet 20 mg PO DAILY RF: 0 Referrals / Follow Up: Carl Loyd MD [Primary Care Provider] - In 1 Week Disposition Disposition (needs filled in before D/C Order can be placed): Home, self care
--- NOTE | 2020-11-02 12:06 | DS.PCM_ITS ---
Documented by User: Chen Benjamin NP, [employer]-C 11/02/20 13:29 Providers Date of Admission: 10/31/20 Primary Care Physician: Dr. Carl Loyd MD Reason For Visit: CHF EXACERBATION Diagnosis Discharge Diagnosis (1) CHF exacerbation: Status: Chronic Code(s): I50.9 - Heart failure, unspecified Medications at Discharge Home Medications PreserVision AREDS-2 1 ea PO DAILY 12/18/13 aspirin 81 mg PO DAILY@0800 12/18/13 atorvastatin 20 mg PO QHS 12/18/13 glimepiride 2 mg PO DINNER 12/18/13 losartan 150 mg PO DAILY 12/18/13 metformin 1,000 mg PO BIDCM 12/18/13 doxazosin [Cardura] 8 mg PO QHS 10/31/20 metoprolol tartrate 50 mg PO BID 10/31/20 verapamil 180 mg PO BID 10/31/20 warfarin 2.5 mg PO MO 10/31/20 warfarin 5 mg PO SUTUWETHFRSA 10/31/20 furosemide [Lasix] 40 mg PO BID #60 tab 11/02/20 Hospital Course Operations None Procedures None Summary of Care Provided Minutes Spent on Discharge: 35 Hospital Course: Patient has an 84-year-old male admitted 10/31/2020 due to shortness of breath and worsening edema. 1. Acute hypoxic respiratory insufficiency secondary to acute heart failure with preserved ejection fraction-BNP 254. Recent echocardiogram at [facility] demonstrated an EF of 70%, RVSP 68 mmHg, severe pulmonary hypertension, moderately severe tricuspid valve regurgitation. IV Lasix during admission. Discussed with patient seeing [facility] in hospital or continuing cardiology follow-up with [facility]. Patient elects to continue follow-up with [facility] cardiology and has upcoming appointment 11/26/2020. Lasix 40 mg twice daily at discharge. Patient will need repeat BMP within 1 week by PCP or cardiology, if kidney function increasing, will need r eduction in dose. Ambulatory pulse ox completed prior to discharge and patient did not require further supplemental oxygen. Follow-up with PCP in 1 week. Follow-up with cardiology as scheduled. 2. Hypertension-stable, on losartan, metoprolol, verapamil. 3. Hyperlipidemia-continue statin. 4. Chronic atrial fibrillation on anticoagulation with Coumadin-Coumadin initially held due to supratherapeutic INR. INR at discharge 2.3, resume home Coumadin regimen. Continue metoprolol. 5. History of CVA-on aspirin, statin, Coumadin. 6. Chronic kidney disease stage IIIa-at baseline, trend BMP. 7. Type 2 diabetes mellitus-continue home oral regimen. 8. Brain meningioma-continue outpatient follow-up with neurology. 9. BPH-on Cardura. 10. Tobacco dependence-encouraged cessation. 11. Suspected COPD/emphysema-patient has extensive smoking history and noted to have intermittent wheezing during admission. Recommend outpatient follow-up for pulmonary function studies. Physical Exam Const alert, oriented x3 and no apparent distress Orientation / Consciousness: awake, oriented to person, oriented to place and oriented to time HEENT normocephalic and moist oral mucous membranes Eyes PERRL, EOMs intact bilaterally and conjunctivae normal Neck no lymphadenopathy Resp clear to auscultation bilaterally Auscultation: diminished lung sounds Cardio regular rhythm and no murmurs Rate: tachycardic Peripheral Pulses: pulses 2+ throughout GI normal to inspection, nondistended, normoactive bowel sounds, non-tender and non-distended Extremity normal to inspection General Extremity: edema bilateral lower extremity Details: mild Skin no rashes or lesions noted Lesions: no lesions Rashes: no rashes Trauma: no lacerations or abrasions Neuro oriented x3 Sensorium / Orientation: awake and alert Psych affect normal Patient seen and examined prior to discharge. Physical assessment as noted megan lara. Patient is stable for discharge with follow up recommendations as noted above. This patient was seen by SHWETHA Norris under the supervision of Dr. Silva. ABG / Lab / Microbiology Data Result Diagrams: 11/02/20 05:26 11/02/20 05:26 Laboratory: Laboratory Results - last 24 hr 11/01/20 11/01/20 11/02/20 16:40 21:55 05:26 WBC 6.0 RBC 4.29 L Hgb 11.9 L Hct 36.9 L MCV 86.0 MCH 27.7 MCHC 32.2 RDW Std Deviation 50.7 H RDW Coeff of Lennie 16.1 H Plt Count 193 MPV 10.1 Immature Gran % (Auto) 0.300 Neut % (Auto) 59.4 Lymph % (Auto) 23.0 [place] % (Auto) 16.3 H Eos % (Auto) 0.7 Baso % (Auto) 0.3 Absolute Neuts (auto) 3.5 Absolute Lymphs (auto) 1.37 Nucleated RBC % 0 PT INR Sodium Potassium Chloride Carbon Dioxide Anion Gap BUN Creatinine Estim Creat Clear Calc Est GFR (MDRD) Af Amer Est GFR (MDRD) Non-Af BUN/Creatinine Ratio Glucose Calcium POC Glucose 187 H 191 H 11/02/20 11/02/20 11/02/20 05:26 05:26 06:32 WBC RBC Hgb Hct MCV MCH MCHC RDW Std Deviation RDW Coeff of Lennie Plt Count MPV Immature Gran % (Auto) Neut % (Auto) Lymph % (Auto) [place] % (Auto) Eos % (Auto) Baso % (Auto) Absolute Neuts (auto) Absolute Lymphs (auto) Nucleated RBC % PT 24.6 H INR 2.3 Sodium 139 Potassium 4.4 Chloride 100 Carbon Dioxide 35.0 H Anion Gap 4 L BUN 43 H Creatinine 1.58 H Estim Creat Clear Calc 37.22 Est GFR (MDRD) Af Amer 54 L Est GFR (MDRD) Non-Af 45 L BUN/Creatinine Ratio 27.2 H Glucose 150 H Calcium 8.9 POC Glucose 178 H 11/02/20 10:56 WBC RBC Hgb Hct MCV MCH MCHC RDW Std Deviation RDW Coeff of Lennie Plt Count MPV Immature Gran % (Auto) Neut % (Auto) Lymph % (Auto) [place] % (Auto) Eos % (Auto) Baso % (Auto) Absolute Neuts (auto) Absolute Lymphs (auto) Nucleated RBC % PT INR Sodium Potassium Chloride Carbon Dioxide Anion Gap BUN Creatinine Estim Creat Clear Calc Est GFR (MDRD) Af Amer Est GFR (MDRD) Non-Af BUN/Creatinine Ratio Glucose Calcium POC Glucose 307 H D/C Instructions Discharge Diet: 8 Cup Fluid Restriction and 2000 mg Sodium Diet Discharge Activity: Return to Normal Activity Call your doctor if you observe: Shortness of breath, Dizziness and Chest pain Meaningful Use Info Meaningful Use Diagnoses (Choose all that apply): CHF CHF MONSE/ARB ordered at discharge?: Yes Reason MONSE/ARB not ordered?: Normal EF Documented LVEF (%): 70 Discharge Plan Admission Admit Date/Time: 10/31/20 13:58 Attending Provider: Nilay Silva Primary Care Provider: Carl Loyd Instructions Additional Instructions / Restrictions: Patient Problems: Altered Health Status related to Hospitalization Patient Goals: *Optimal Level of Health *Keep Appointments *Medication Compliance *Remain SafeFollow-up with [facility] cardiology as scheduled 11/26/2020. Discharge Orders/Prescriptions Prescriptions: New furosemide [Lasix] 40 mg tablet 40 mg PO BID Qty: 60 RF: 0 Continued atorvastatin 20 MG tablet 20 mg PO QHS RF: 0 glimepiride 2 MG tablet 2 mg PO DINNER RF: 0 metformin 1,000 MG tablet 1,000 mg PO BIDCM RF: 0 aspirin 81 MG tablet,chewable 81 mg PO DAILY@0800 RF: 0 losartan 100 MG tablet 150 mg PO DAILY RF: 0 PreserVision AREDS-2 1 EACH capsule 1 ea PO DAILY RF: 0 verapamil 180 mg tablet extended release 180 mg PO BID RF: 0 warfarin 2.5 mg Tablet 2.5 mg PO MO RF: 0 warfarin 5 mg Tablet 5 mg PO SUTUWETHFRSA RF: 0 metoprolol tartrate 50 mg tablet 50 mg PO BID RF: 0 doxazosin [Cardura] 8 mg tablet 8 mg PO QHS RF: 0 Discontinued furosemide 20 mg tablet 20 mg PO DAILY RF: 0 Referrals / Follow Up: Carl Loyd MD [Primary Care Provider] - 11/09/20 10:40 am Disposition Disposition (needs filled in before D/C Order can be placed): Home, self care Documented by User: Dr. Nilay Silva DO 11/02/20 18:41 Providers Date of Admission: 10/31/20 Reason For Visit: CHF EXACERBATION Medications at Discharge Home Medications PreserVision AREDS-2 1 ea PO DAILY 12/18/13 aspirin 81 mg PO DAILY@0800 12/18/13 atorvastatin 20 mg PO QHS 12/18/13 glimepiride 2 mg PO DINNER 12/18/13 losartan 150 mg PO DAILY 12/18/13 metformin 1,000 mg PO BIDCM 12/18/13 doxazosin [Cardura] 8 mg PO QHS 10/31/20 metoprolol tartrate 50 mg PO BID 10/31/20 verapamil 180 mg PO BID 10/31/20 warfarin 2.5 mg PO MO 10/31/20 warfarin 5 mg PO SUTUWETHFRSA 10/31/20 furosemide [Lasix] 40 mg PO BID #60 tab 11/02/20 ABG / Lab / Microbiology Data Result Diagrams: 11/02/20 05:26 11/02/20 05:26 Discharge Plan Admission Admit Date/Time: 10/31/20 13:58 Attending Provider: Nilay Silva Primary Care Provider: Carl Loyd Instructions Additional Instructions / Restrictions: Patient Problems: Altered Health Status related to Hospitalization Patient Goals: *Optimal Level of Health *Keep Appointments *Medication Compliance *Remain SafeFollow-up with [facility]ology as scheduled 11/26/2020. Discharge Orders/Prescriptions Prescriptions: New furosemide [Lasix] 40 mg tablet 40 mg PO BID Qty: 60 RF: 0 Continued atorvastatin 20 MG tablet 20 mg PO QHS RF: 0 glimepiride 2 MG tablet 2 mg PO DINNER RF: 0 metformin 1,000 MG tablet 1,000 mg PO BIDCM RF: 0 aspirin 81 MG tablet,chewable 81 mg PO DAILY@0800 RF: 0 losartan 100 MG tablet 150 mg PO DAILY RF: 0 PreserVision AREDS-2 1 EACH capsule 1 ea PO DAILY RF: 0 verapamil 180 mg tablet extended release 180 mg PO BID RF: 0 warfarin 2.5 mg Tablet 2.5 mg PO MO RF: 0 warfarin 5 mg Tablet 5 mg PO SUTUWETHFRSA RF: 0 metoprolol tartrate 50 mg tablet 50 mg PO BID RF: 0 doxazosin [Cardura] 8 mg tablet 8 mg PO QHS RF: 0 Discontinued furosemide 20 mg tablet 20 mg PO DAILY RF: 0 Referrals / Follow Up: Carl Loyd MD [Primary Care Provider] - 11/09/20 10:40 am Disposition Disposition (needs filled in before D/C Order can be placed): Home, self care Addendum Addendum: Patient was seen and examined independently of Chen Benjamin, he appears stable for discharge at this time, he did not require supplemental oxygen at the time of discharge. On examination he appeared in good health and spirits. Vital signs as documented. Skin warm and dry and without overt rashes. Neck without JVD, neck was supple, trachea midline, thyroid was normal. Lungs clear bilaterally, decreased air movement was noted. Heart exam notable for irregular rhythm, normal sounds and absence of murmurs, rubs or gallops. Abdomen unremarkable and without evidence of organomegaly, masses, or abdominal aortic enlargement. Bowel sounds are present, abdomen is not distended. Extremities nonedematous, no cyanosis was noted, no clubbing was noted. Neuro: Cranial nerves II through XII are grossly intact, no focal motor deficits were noted, sensation to light touch and pinprick intact, motor exam 5/5 throughout. Psych: Patient is alert and oriented x3, he does not appear anxious or depressed, he does not appear agitated. Patient appears stable for discharge at this time, I have reviewed Chen Benjamin's discharge summary including her medical assessment and plan of care and endorse it. Visit Charges Inpatient E&M: 16084 Disch Hosp
--- NOTE | 2020-11-02 12:14 | PHA.DC.MR ---
Pharmacy Service has performed discharge medication reconciliation for this patient. The patient's discharge medication list was reviewed for discrepancies and discrepancies were resolved. Home Medications PreserVision AREDS-2 1 ea PO DAILY 12/18/13 aspirin 81 mg PO DAILY@0800 12/18/13 atorvastatin 20 mg PO QHS 12/18/13 glimepiride 2 mg PO DINNER 12/18/13 losartan 150 mg PO DAILY 12/18/13 metformin 1,000 mg PO BIDCM 12/18/13 doxazosin [Cardura] 8 mg PO QHS 10/31/20 metoprolol tartrate 50 mg PO BID 10/31/20 verapamil 180 mg PO BID 10/31/20 warfarin 2.5 mg PO MO 10/31/20 warfarin 5 mg PO SUTUWETHFRSA 10/31/20 furosemide [Lasix] 40 mg PO BID #60 tab 11/02/20
--- NOTE | 2020-11-02 12:23 | CASEMGMT ---
Pt did not qualify for home O2.
--- NOTE | 2020-11-03 10:43 | CASEMGMT ---
CARLOS PATINO Discharge Follow Up Phone Call: DAMIEN: Elizabeth Strata: 3 Call Date: 11/03/20 Discharge Date: 11/02/20 Time of Call: 1044 Duration: 3 min Admitting Dx: CHF exac CARLOS PATINO completed follow up phone call after recent hospitalization. Per pt , pt is sleeping. She states that lastnight pt feet were swelling up and red again. She states they are better today. He is sitting with legs elevated now. States his breathing is better today. picked up his prescriptions and she states pt has an appt with on 11/09 and sees [facility] cardiology on 11/26, although they are trying to get him in sooner. Pt has no further questions or concerns at this time.
== END 2020-11-02 14:29 | disposition home or self-care (01) | DRG 291 ==
LOC: ED 14:20 → PCU 15:11
PROVIDERS: Nurse Practitioner Family; Admitting Provider Family Medicine; Emergency Provider Emergency Medicine; PCP Internal Medicine; Visit Provider Internal Medicine
DX: I13.0 Hypertensive heart and chronic kidney disease with heart failure and stage 1 through stage 4 chronic kidney disease, or unspecified chronic kidney disease (principal); I50.31 Acute diastolic (congestive) heart failure; I48.20 Chronic atrial fibrillation, unspecified; I36.1 Nonrheumatic tricuspid (valve) insufficiency; I27.20 Pulmonary hypertension, unspecified; N18.31 Chronic kidney disease, stage 3a; E11.22 Type 2 diabetes mellitus with diabetic chronic kidney disease; D32.0 Benign neoplasm of cerebral meninges; R09.02 Hypoxemia; E78.5 Hyperlipidemia, unspecified; N40.0 Benign prostatic hyperplasia without lower urinary tract symptoms; J43.9 Emphysema, unspecified; F17.210 Nicotine dependence, cigarettes, uncomplicated; R79.1 Abnormal coagulation profile; Z66 Do not resuscitate; Z79.01 Long term (current) use of anticoagulants; Z79.84 Long term (current) use of oral hypoglycemic drugs; Z79.899 Other long term (current) drug therapy; Z86.73 Personal history of transient ischemic attack (TIA), and cerebral infarction without residual deficits
CPT/HCPCS: 36415; 71045; 80048; 80053; 80061; 82962; 83735; 83880; 84443; 84484; 85025; 85610; 93005; 94640; 97166; 97802; 99251; 99285; 99406; A4216; G0463; J1940

== ENCOUNTER 2020-12-21 08:51 | Outpatient (RCR) | payer MEDICARE, OTHER, SELFPAY ==
[2020-10-31 15:37] VITALS: BMI 30.3
[2020-12-21 09:11] VITALS: BP 135/68; PULSE 111; TEMP 36.3; BMI 30.3
--- NOTE | 2020-12-21 10:18 | PCM.WC.HP ---
History of Present Illness Date of Service: 12/21/20 Chief Complaint: Bilateral leg ulcerations History of Wound: This is an 85-year-old male who presented with ulcerations on both lower extremities. The ulcerations occurred approximately 2 months ago. They are thought to have resulted from severe swelling and edema in both lower extremities which occurred as a result of exacerbation of congestive heart failure. In fact, the patient was hospitalized for several days at [facility] from October 31, 2020, to November 02, 2020, in treatment for congestive heart failure. As result of medical therapy, the patient lost over 20 pounds, and a diuresis was effected. As result, the swelling and edema in the patient's lower extremities resolved, though the resulting ulcerations have persisted. The patient and his have been applying bacitracin topically. He generally sleeps on a flat surface at night. However, he is not very active during daytime hours, often falling asleep in a semi-upright position during the day. The patient has multiple pre-existing medical problems, which are listed below. Recent laboratory results have been reviewed, and revealed the presence of chronic kidney disease, with elevated BUN and creatinine, and diminished protein and serum albumin levels. COUNT INCLUDES THE [facility] Medical History (Updated 12/21/20 @ 10:[address] Xavier Thapa MD) Atrial fibrillation CHF (congestive heart failure) CHF exacerbation Chronic kidney disease, stage III (moderate) Congestive heart failure (CHF) Diabetes History of alcohol abuse History of alcohol use History of CVA (cerebrovascular accident) History of stroke History of tobacco use disorder Hyperlipemia Hyperlipidemia Hypertension Leg ulcer Macular degeneration Malnutrition of mild degree BECKIE (obstructive sleep apnea) Pulmonary hypertension Smoker Tricuspid valve regurgitation Home Medications PreserVision AREDS-2 1 ea PO DAILY 12/18/13 [History Last Taken Unknown] aspirin 81 mg PO DAILY@0800 12/18/13 [History Last Taken Unknown] atorvastatin 20 mg PO QHS 12/18/13 [History Last Taken Unknown] glimepiride 2 mg PO DINNER 12/18/13 [History Last Taken Unknown] losartan 150 mg PO DAILY 12/18/13 [History Last Taken Unknown] metformin 1,000 mg PO BIDCM 12/18/13 [History Last Taken Unknown] doxazosin [Cardura] 8 mg PO QHS 10/31/20 [History Last Taken Unknown] metoprolol tartrate 50 mg PO BID 10/31/20 [History Last Taken Unknown] verapamil 180 mg PO BID 10/31/20 [History Last Taken Unknown] warfarin 2.5 mg PO MO 10/31/20 [History Last Taken Unknown] warfarin 5 mg PO SUTUWETHFRSA 10/31/20 [History Last Taken Unknown] furosemide [Lasix] 40 mg PO BID #60 tab 11/02/20 [Rx Last Taken Unknown] Allergy/AdvReac Type Severity Reaction Status Date / Time atenolol Allergy Other Verified 10/31/20 12:21 Social History (Updated 10/31/20 @ 14:18 by Chen Benjamin NP, [employer]) household members: spouse Smoking Status: Current every day smoker substance use type: does not use Vital Signs Vital Signs Vital Signs: 12/21/20 09:11 Temperature 97.3 F L Temperature Source Temporal Pulse Rate 111 H Blood Pressure 135/68 H Blood Pressure Mean 90 Blood Pressure Source Monitor Blood Pressure Position Semi-Fowlers Blood Pressure Location Right Arm Weight Body Mass Index (BMI) 30.3 Physical Exam Const alert, oriented x3, no apparent distress and well nourished General Appearance: cooperative, comfortable and well developed Orientation / Consciousness: awake, oriented to person, oriented to place and oriented to time HEENT normocephalic Head and Scalp: normal to inspection, normocephalic and atraumatic General Ear: other Other Details: The patient appears to suffer from a moderate hearing deficit External Ear: external ears normal Eyes PERRL and EOMs intact bilaterally General Eye: normal appearance of both eyes Resp normal respiratory effort, normal air movement, no retractions and no use of accessory muscles Effort and Inspection: able to speak in complete sentences GI Rectal Exam: deferred Extremity no calf tenderness Extremity Narrative: No significant swelling or edema are noted in the patient's lower extremities at this time. There is no sign of infection or cellulitis. General Extremity: Negative for clubbing or cyanosis Skin Wound Narrative: Two ulcerations are noted on each lower extremity. Ulcerations are present near the left lateral malleolus, the left posterior calf, the right lateral malleolus, and the right posterior calf. The ulcerations are full-thickness. There is no sign of infection or cellulitis there is a moderate amount of bioburden. Dimensions are documented elsewhere. Neuro oriented x3, CN's II-XII intact bilaterally and moves all extremities Psych mental status grossly normal Appearance: grossly normal and appropriate Attitude: calm Speech: normal speech Mood & Affect: euthymic mood Debridement Note Debridement Note Post-Debridement Measurements and Additional Note: Post-Debridement Measurements/Treatment - Nurse 1 - General Ulcer Assessment Start: 12/21/20 09:11 Freq: Status: Active Protocol: MATTEO Activity Type Activity Date Activity User E-Sign Co-Sign Detail Recorded Client Recorded Date Recorded By Document 12/21/20 09:11 MARS [id number] 12/21/20 09:37 MARS 12/21/20 09:11 - Today's Visit Information Type of service Initial Visit Arrival Mode Ambulatory Patient Identification Verified (Name & Yes ) Height and Weight Body Mass Index (BMI) 30.3 BMI Classification Obese Vital Signs Temperature (97.8 F-99.1 F) 97.3 F L Temperature Source Temporal Pulse Rate (60-100) 111 H Pulse Location Monitor Blood Pressure (90/60-120/80) 135/68 H Blood Pressure Mean 90 Source Monitor Position Semi-Fowlers Blood Pressure Location Right Arm History Since Last Visit- (Skip if this is Patient's initial visit) Have you changed medications since your No last visit? Any new allergies or adverse reactions No Had a fall/change in ADL's that may No increase risk of falls Signs or symptoms of abuse and/or No neglect since last visit Have you been in the hospital since your No last visit? Has dressing in place as prescribed No Has compression in place as prescribed N/A Has offloadiing in place as prescribed N/A Experienced any changes in pain level or No management Left Footwear Regular Shoe Right Footwear Regular Shoe Pain Scale: 0-10 Numeric Is Patient Pain Free? Yes - Nurse 1 - General Ulcer Measurement Start: 12/21/20 09:11 Freq: Status: Active Protocol: Activity Type Activity Date Activity User E-Sign Co-Sign Detail Recorded Client Recorded Date Recorded By Document 12/21/20 09:11 MARS [id number] 12/21/20 09:37 MARS 12/21/20 09:11 Wound Center Nurse 1 #4 Left Calf -Current Size (cm) - Length 0.5 -Current Size (cm) - Width 0.5 -Current Size (cm) - Depth 0.1 -Total Square Cm 0.25 -Exudate Amt None Present -Wound Margin Distinct, Outline Attached -Granulation Amt None Present (0 %) -Necrosis Amt None Present (0 %) -Texture (Susie-wound Skin Appearance) Assessed, Scarring -Moisture (Susie-wound Skin Appearance) Assessed,Dry/ Scaly -Color (Susie-wound Skin Appearance) No Abnormality, Assessed -Temperature (Susie-wound Skin No Abnormality Appearance) (Pt Warm) -Tenderness on Palpation (Susie-wound No Skin Appearance) -Ulcer Cleansing Rinsed/ Irrigated with Saline -Foul Odor after Cleansing No -Anesthetic Used 5% Lidocaine Gel #3 Right Calf -Current Size (cm) - Length 2 -Current Size (cm) - Width 1.2 -Current Size (cm) - Depth 0.1 -Total Square Cm 2.4 -Wound Margin Distinct, Outline Attached -Texture (Susie-wound Skin Appearance) Assessed, Scarring -Moisture (Susie-wound Skin Appearance) Assessed,Dry/ Scaly -Color (Susie-wound Skin Appearance) Assessed -Temperature (Susie-wound Skin No Abnormality Appearance) (Pt Warm) -Tenderness on Palpation (Susie-wound No Skin Appearance) -Ulcer Cleansing Rinsed/ Irrigated with Saline -Foul Odor after Cleansing No -Anesthetic Used 5% Lidocaine Gel #2 Left Ankle -Current Size (cm) - Length 2.8 -Current Size (cm) - Width 0.5 -Current Size (cm) - Depth 0.1 -Total Square Cm 1.40 -Exudate Amt Small -Exudate Type Serosanguineous -Wound Margin Distinct, Outline Attached -Granulation Amt Medium (34-66%) -Granulation Quality Red -Necrosis Amt Small (1-33%) -Necrotic Tissue Type Adherent Slough -Texture (Susie-wound Skin Appearance) Assessed, Scarring -Moisture (Susie-wound Skin Appearance) Assessed,Dry/ Scaly -Color (Susie-wound Skin Appearance) No Abnormality, Assessed -Temperature (Susie-wound Skin No Abnormality Appearance) (Pt Warm) -Tenderness on Palpation (Susie-wound No Skin Appearance) -Ulcer Cleansing Rinsed/ Irrigated with Saline -Foul Odor after Cleansing No -Anesthetic Used 5% Lidocaine Gel #1 Right Ankle -Current Size (cm) - Length 1.9 -Current Size (cm) - Width 0.3 -Current Size (cm) - Depth 0.1 -Total Square Cm 0.57 -Exudate Amt Small -Exudate Type Serosanguineous -Wound Margin Distinct, Outline Attached -Granulation Amt Medium (34-66%) -Granulation Quality Red -Necrosis Amt Medium (34-66%) -Necrotic Tissue Type Adherent Slough -Texture (Susie-wound Skin Appearance) Assessed, Scarring -Moisture (Susie-wound Skin Appearance) Assessed,Dry/ Scaly -Color (Susie-wound Skin Appearance) No Abnormality, Assessed -Temperature (Susie-wound Skin No Abnormality Appearance) (Pt Warm) -Tenderness on Palpation (Susie-wound No Skin Appearance) -Ulcer Cleansing Rinsed/ Irrigated with Saline -Foul Odor after Cleansing No -Anesthetic Used 5% Lidocaine Gel Right Calf (cm) 37.3 Right Ankle (cm) 25.2 Left Calf (cm) 38.1 Left Ankle (cm) 25.3 Wound debrided: Left lateral malleolus, left posterior calf Laterality: Left Type of Debridement: Excisional debridement Anesthesia Used: 5% Lidocaine Gel Depth: Down to and including healthy tissue and in the subcutaneous layer Percentage of wound debrided: 100 Instrument Used: 5mm curette Tissue Removed: Bioburden Severity: Fat Layer Exposed Amount of bleeding with debridement: Mild Bleeding Controlled with: Compression and gauze Patient tolerated procedure: Patient tolerated procedure well Additional Wound Wound debrided: Right lateral malleolus, right posterior calf Laterality: Right Type of Debridement: Excisional debridement Anesthesia Used: 5% Lidocaine Gel Depth: Down to and including healthy tissue and in the subcutaneous layer Percentage of wound debrided: 100 Instrument Used: 5mm curette Tissue Removed: Bioburden Severity: Fat Layer Exposed Amount of bleeding with debridement: Mild Bleeding Controlled with: Compression and gauze Patient tolerated procedure: Patient tolerated procedure well Assessment/Plan Assessment/Plan (1) Afib: CODE(S): I48.91 - Unspecified atrial fibrillation (2) CHF (congestive heart failure): CODE(S): I50.9 - Heart failure, unspecified (3) BPH (benign prostatic hyperplasia): (4) HTN (hypertension): CODE(S): I10 - Essential (primary) hypertension (5) DM2 (diabetes mellitus, type 2): CODE(S): E11.9 - Type 2 diabetes mellitus without complications (6) History of alcohol abuse: CODE(S): F10.11 - Alcohol abuse, in remission (7) History of stroke: CODE(S): Z86.73 - Personal history of transient ischemic attack (TIA), and cerebral infarction without residual deficits (8) BECKIE (obstructive sleep apnea): CODE(S): G47.33 - Obstructive sleep apnea (adult) (pediatric) (9) Pulmonary hypertension: CODE(S): I27.20 - Pulmonary hypertension, unspecified (10) History of tobacco use disorder: CODE(S): Z87.891 - Personal history of nicotine dependence (11) Hyperlipidemia: CODE(S): E78.5 - Hyperlipidemia, unspecified (12) Chronic kidney disease, stage III (moderate): CODE(S): N18.30 - Chronic kidney disease, stage 3 unspecified (13) Tricuspid valve regurgitation: CODE(S): I07.1 - Rheumatic tricuspid insufficiency (14) Malnutrition of mild degree: CODE(S): E44.1 - Mild protein-calorie malnutrition (15) Leg ulcer: CODE(S): L97.909 - Non-pressure chronic ulcer of unspecified part of unspecified lower leg with unspecified severity QUALIFIERS: Laterality: unspecified laterality Non-pressure ulcer stage: with fat layer exposed Qualified Code(s): L97.902 - Non-pressure chronic ulcer of unspecified part of unspecified lower leg with fat layer exposed PLAN: Is an 85-year-old male who presents with ulcerations in both lower extremities. There are of several months duration, and appear to have developed while the patient's lower extremities were extremely swollen and edematous as result of congestive heart failure. The swelling and edema has now resolved as a result of aggressive medical therapy. The wounds persist at this time. We are to implement conservative treatment measures, which have been reviewed thoroughly with the patient and his , who is at the bedside. The patient is to continue sleeping flat at night. He is to elevate his legs to heart level even during daytime hours, as much as possible. Prolonged idle sitting has been discouraged. Activity has been encouraged. We are to implement compression to the lower extremities by means of Tubigrip's initially, which may be increased in the near future. A noninvasive lower extremity arterial study will be obtained to assess the patient's arterial perfusion in the lower extremities. Collagen hydrogel is to be applied topically to each of the lower extremity ulcerations. Patient has been advised to enhance his nutritional intake, using a product such as Glucerna as a supplement. Optimization of the patient's glycemic status has also been recommended. The patient is to return in 1 week for reassessment. Total time: 65 minutes.
== END 2020-12-22 23:59 ==
LOC: WC 08:51
PROVIDERS: PCP Internal Medicine; Referring Provider Internal Medicine; Visit Provider Surgery
DX: E11.622 Type 2 diabetes mellitus with other skin ulcer (principal); L97.322 Non-pressure chronic ulcer of left ankle with fat layer exposed; L97.312 Non-pressure chronic ulcer of right ankle with fat layer exposed; L97.222 Non-pressure chronic ulcer of left calf with fat layer exposed; L97.212 Non-pressure chronic ulcer of right calf with fat layer exposed; I13.0 Hypertensive heart and chronic kidney disease with heart failure and stage 1 through stage 4 chronic kidney disease, or unspecified chronic kidney disease; I50.9 Heart failure, unspecified; E11.22 Type 2 diabetes mellitus with diabetic chronic kidney disease; N18.30 Chronic kidney disease, stage 3 unspecified; I27.20 Pulmonary hypertension, unspecified; I07.1 Rheumatic tricuspid insufficiency; I48.91 Unspecified atrial fibrillation; E78.5 Hyperlipidemia, unspecified; N40.0 Benign prostatic hyperplasia without lower urinary tract symptoms; G47.33 Obstructive sleep apnea (adult) (pediatric); F17.200 Nicotine dependence, unspecified, uncomplicated; F10.11 Alcohol abuse, in remission; Z79.01 Long term (current) use of anticoagulants; Z79.82 Long term (current) use of aspirin; Z79.84 Long term (current) use of oral hypoglycemic drugs; Z87.891 Personal history of nicotine dependence; Z86.73 Personal history of transient ischemic attack (TIA), and cerebral infarction without residual deficits
CPT/HCPCS: 11042; 99213; G0463

== ENCOUNTER 2021-01-18 09:00 | Outpatient (RCR) | payer MEDICARE, OTHER, SELFPAY ==
[2020-12-23 00:34] VITALS: BP 135/68; PULSE 111; TEMP 36.3
[2020-12-28 09:54] VITALS: BP 123/69; PULSE 109; RESP 18; TEMP 36.4; BMI 30.3
--- NOTE | 2020-12-28 10:34 | PCM.WC.HP ---
History of Present Illness Date of Service: 12/28/20 Chief Complaint: Bilateral leg ulcerations History of Wound: This is an 85-year-old male who presented with ulcerations on both lower extremities. The ulcerations occurred approximately 2 months prior to presentation. They are thought to have resulted from severe swelling and edema in both lower extremities which occurred as a result of exacerbation of congestive heart failure. In fact, the patient was hospitalized for several days at [facility] from October 31, 2020, to November 02, 2020, in treatment for congestive heart failure. As result of medical therapy, the patient lost over 20 pounds, and a diuresis was effected. As result, the swelling and edema in the patient's lower extremities resolved, though the resulting ulcerations have persisted. The patient and his had been applying bacitracin topically. He generally sleeps on a flat surface at night. However, he is not very active during daytime hours, often falling asleep in a semi-upright position during the day. The patient has multiple pre-existing medical problems, which are listed below. Recent laboratory results have been reviewed, and revealed the presence of chronic kidney disease, with elevated BUN and creatinine, and diminished protein and serum albumin levels. [facility] Medical History (Updated 12/21/20 @ 10:[address] Xavier Thapa MD) Atrial fibrillation CHF (congestive heart failure) CHF exacerbation Chronic kidney disease, stage III (moderate) Congestive heart failure (CHF) Diabetes History of alcohol abuse History of alcohol use History of CVA (cerebrovascular accident) History of stroke History of tobacco use disorder Hyperlipemia Hyperlipidemia Hypertension Leg ulcer Macular degeneration Malnutrition of mild degree BECKIE (obstructive sleep apnea) Pulmonary hypertension Smoker Tricuspid valve regurgitation Home Medications PreserVision AREDS-2 1 ea PO DAILY 12/18/13 [History Last Taken Unknown] aspirin 81 mg PO DAILY@0800 12/18/13 [History Last Taken Unknown] atorvastatin 20 mg PO QHS 12/18/13 [History Last Taken Unknown] glimepiride 2 mg PO DINNER 12/18/13 [History Last Taken Unknown] losartan 150 mg PO DAILY 12/18/13 [History Last Taken Unknown] metformin 1,000 mg PO BIDCM 12/18/13 [History Last Taken Unknown] doxazosin [Cardura] 8 mg PO QHS 10/31/20 [History Last Taken Unknown] metoprolol tartrate 50 mg PO BID 10/31/20 [History Last Taken Unknown] verapamil 180 mg PO BID 10/31/20 [History Last Taken Unknown] warfarin 2.5 mg PO MO 10/31/20 [History Last Taken Unknown] warfarin 5 mg PO SUTUWETHFRSA 10/31/20 [History Last Taken Unknown] furosemide [Lasix] 40 mg PO BID #60 tab 11/02/20 [Rx Last Taken Unknown] Allergy/AdvReac Type Severity Reaction Status Date / Time atenolol Allergy Other Verified 10/31/20 12:21 Social History (Updated 10/31/20 @ 14:18 by Chen Benjamin JACKAROO, JACKAROO-C) household members: spouse Smoking Status: Current every day smoker substance use type: does not use Vital Signs Vital Signs Vital Signs: 12/28/20 09:54 Temperature 97.6 F L Temperature Source Temporal Pulse Rate 109 H Respiratory Rate 18 Blood Pressure 123/69 H Blood Pressure Mean 87 Blood Pressure Source Monitor Blood Pressure Position Sitting Blood Pressure Location Left Arm Oxygen Delivery Method Room Air Weight Body Mass Index (BMI) 30.3 Physical Exam Const alert, oriented x3, no apparent distress and average body habitus General Appearance: cooperative, comfortable, well kempt and well developed Orientation / Consciousness: awake, oriented to person, oriented to place and oriented to time HEENT normocephalic and head/scalp atraumatic Head and Scalp: normal to inspection, normocephalic and atraumatic External Ear: external ears normal Eyes PERRL and EOMs intact bilaterally Resp normal respiratory effort, normal air movement, no retractions and no use of accessory muscles Effort and Inspection: able to speak in complete sentences Extremity no clubbing, cyanosis or edema and no calf tenderness Extremity Narrative: No swelling or edema are noted in the patient's lower extremities, a marked improvement over the condition which was described from several months ago. General Extremity: Negative for clubbing or cyanosis Skin Wound Narrative: Ulcerations are noted on the left posterior heel, left posterior calf, and right posterior calf. The ulceration on the right posterior heel appears essentially healed. There is no sign of infection or cellulitis. There is a moderate amount of bioburden and scattered nonviable/necrotic tissue. Dimensions are documented elsewhere. Neuro oriented x3, CN's II-XII intact bilaterally and moves all extremities Speech: speech normal Psych mental status grossly normal Appearance: grossly normal and appropriate Attitude: calm and engaged Activity / Motor Behavior: appropriate eye contact Speech: normal speech Mood & Affect: euthymic mood Thought Process: normal thought process Debridement Note Debridement Note Post-Debridement Measurements and Additional Note: Post-Debridement Measurements/Treatment - Nurse 1 - General Ulcer Assessment Start: 12/28/20 09:51 Freq: Status: Active Protocol: MATTEO Activity Type Activity Date Activity User E-Sign Co-Sign Detail Recorded Client Recorded Date Recorded By Document 12/28/20 09:54 [id number] 12/28/20 10:08 12/28/20 09:54 WC - Today's Visit Information Type of service Initial Visit Arrival Mode Ambulatory Transfer Assistance None Accompanied by Patient Identification Verified (Name & Yes ) Patient Requires Transmission-Based No Precautions Safety Precautions NA Height and Weight Body Mass Index (BMI) 30.3 BMI Classification Obese Vital Signs Temperature (97.8 F-99.1 F) 97.6 F L Temperature Source Temporal Pulse Rate (60-100) 109 H Pulse Location Monitor Respiratory Rate (12-18) 18 Respiratory rate source Observation Oxygen Delivery Method Room Air Blood Pressure (90/60-120/80) 123/69 H Blood Pressure Mean 87 Source Monitor Position Sitting Blood Pressure Location Left Arm - Nurse 1 - General Ulcer Measurement Start: 12/28/20 09:51 Freq: Status: Active Protocol: Activity Type Activity Date Activity User E-Sign Co-Sign Detail Recorded Client Recorded Date Recorded By Document 12/28/20 09:54 MW [id number] 12/28/20 10:08 12/28/20 09:54 Wound Center Nurse 1 #4 Left Calf -Combined with other wound No -Current Size (cm) - Length 0.7 -Current Size (cm) - Width 0.5 -Current Size (cm) - Depth 0.1 -Total Square Cm 0.35 -Photo Taken No -Epithelialization None Present -Tunneling No -Undermining/Tunneling No -Circular Undermining No -Exudate Amt None Present -Wound Margin Flat & Intact -Granulation Amt None Present (0 %) -Granulation Quality N/A -Slough/Fibrin Yes -Necrosis Amt Large (67-100%) -Necrotic Tissue Type Adherent Slough -Structure Exposed N/A -Texture (Susie-wound Skin Appearance) Assessed, Localized Edema -Moisture (Susie-wound Skin Appearance) Assessed,Dry/ Scaly -Color (Susie-wound Skin Appearance) No Abnormality, Assessed -Temperature (Susie-wound Skin No Abnormality Appearance) (Pt Warm) -Tenderness on Palpation (Susie-wound Yes Skin Appearance) -Ulcer Cleansing Rinsed/ Irrigated with Saline -Foul Odor after Cleansing No -Anesthetic Used 4% Lidocaine Solution #3 Right Calf -Combined with other wound No -Current Size (cm) - Length 2.8 -Current Size (cm) - Width 2.0 -Current Size (cm) - Depth 0.2 -Total Square Cm 5.60 -Photo Taken No -Epithelialization None Present -Tunneling No -Undermining/Tunneling No -Circular Undermining No -Exudate Amt Medium -Exudate Type Serosanguineous -Wound Margin Distinct, Outline Attached -Granulation Amt Small (1-33%) -Granulation Quality [place] -Slough/Fibrin Yes -Necrosis Amt Large (67-100%) -Necrotic Tissue Type Adherent Slough -Structure Exposed N/A -Texture (Susie-wound Skin Appearance) Assessed, Localized Edema -Moisture (Susie-wound Skin Appearance) Assessed,Dry/ Scaly -Color (Susie-wound Skin Appearance) Assessed, Hemosiderin Staining -Temperature (Susie-wound Skin No Abnormality Appearance) (Pt Warm) -Tenderness on Palpation (Susie-wound No Skin Appearance) -Ulcer Cleansing Rinsed/ Irrigated with Saline -Foul Odor after Cleansing No -Anesthetic Used 4% Lidocaine Solution #2 Left Ankle -Combined with other wound No -Current Size (cm) - Length 0.6 -Current Size (cm) - Width 1.0 -Current Size (cm) - Depth 0.5 -Total Square Cm 0.60 -Photo Taken No -Epithelialization None Present -Tunneling No -Undermining/Tunneling No -Circular Undermining No -Exudate Amt Small -Exudate Type Serosanguineous -Wound Margin Distinct, Outline Attached -Granulation Amt Small (1-33%) -Granulation Quality [place] -Slough/Fibrin Yes -Necrosis Amt Large (67-100%) -Necrotic Tissue Type Adherent Slough -Structure Exposed N/A -Texture (Susie-wound Skin Appearance) Assessed, Localized Edema -Moisture (Susie-wound Skin Appearance) Assessed,Dry/ Scaly -Color (Susie-wound Skin Appearance) Assessed, Hemosiderin Staining -Temperature (Susie-wound Skin No Abnormality Appearance) (Pt Warm) -Tenderness on Palpation (Susie-wound No Skin Appearance) -Ulcer Cleansing Rinsed/ Irrigated with Saline -Foul Odor after Cleansing No -Anesthetic Used 4% Lidocaine Solution #1 Right Ankle -Combined with other wound No -Current Size (cm) - Length 0.1 -Current Size (cm) - Width 1.0 -Current Size (cm) - Depth 0.1 -Total Square Cm 0.10 -Photo Taken No -Epithelialization None Present -Undermining/Tunneling No -Circular Undermining No -Exudate Amt Small -Exudate Type Serous -Wound Margin Distinct, Outline Attached -Granulation Amt Small (1-33%) -Granulation Quality [place] -Slough/Fibrin Yes -Necrosis Amt Medium (34-66%) -Necrotic Tissue Type Adherent Slough -Structure Exposed N/A -Texture (Susie-wound Skin Appearance) Assessed, Localized Edema -Moisture (Susie-wound Skin Appearance) Assessed,Dry/ Scaly -Color (Susie-wound Skin Appearance) Assessed, Hemosiderin Staining -Temperature (Susie-wound Skin No Abnormality Appearance) (Pt Warm) -Tenderness on Palpation (Susie-wound No Skin Appearance) -Ulcer Cleansing Rinsed/ Irrigated with Saline -Foul Odor after Cleansing No -Anesthetic Used 4% Lidocaine Solution Lower Limb Edema Present Yes Right Calf (cm) 36.0 Point of Measurement (cm from the medial 22.2 instep) Left Calf (cm) 35.5 Left Ankle (cm) 22.5 Wound debrided: Left posterior heel Laterality: Left Type of Debridement: Excisional debridement Anesthesia Used: 5% Lidocaine Gel Depth: Down to and including healthy tissue and in the subcutaneous layer Percentage of wound debrided: 100 Instrument Used: 5mm curette Tissue Removed: Bioburden and nonviable tissue Severity: Fat Layer Exposed Amount of bleeding with debridement: Mild Bleeding Controlled with: Compression and gauze Patient tolerated procedure: Patient tolerated procedure well Additional Wound Wound debrided: Left posterior calf Laterality: Left Type of Debridement: Excisional debridement Anesthesia Used: 5% Lidocaine Gel Depth: Down to and including healthy tissue and in the subcutaneous layer Percentage of wound debrided: 100 Instrument Used: 5mm curette Tissue Removed: Bioburden and nonviable tissue Severity: Fat Layer Exposed Amount of bleeding with debridement: Mild Bleeding Controlled with: Compression and gauze Patient tolerated procedure: Patient tolerated procedure well Additional Wound Wound debrided: Right posterior calf Laterality: Right Type of Debridement: Excisional debridement Anesthesia Used: 5% Lidocaine Gel Depth: Down to and including healthy tissue and in the subcutaneous layer Percentage of wound debrided: 100 Instrument Used: 5mm curette Tissue Removed: Bioburden and nonviable tissue Amount of bleeding with debridement: Mild Bleeding Controlled with: Compression and gauze Patient tolerated procedure: Patient tolerated procedure well Assessment/Plan Assessment/Plan (1) Leg ulcer: CODE(S): L97.909 - Non-pressure chronic ulcer of unspecified part of unspecified lower leg with unspecified severity QUALIFIERS: Laterality: unspecified laterality Non-pressure ulcer stage: with fat layer exposed Qualified Code(s): L97.902 - Non-pressure chronic ulcer of unspecified part of unspecified lower leg with fat layer exposed (2) Malnutrition of mild degree: CODE(S): E44.1 - Mild protein-calorie malnutrition (3) Tricuspid valve regurgitation: CODE(S): I07.1 - Rheumatic tricuspid insufficiency (4) CHF (congestive heart failure): CODE(S): I50.9 - Heart failure, unspecified (5) Chronic kidney disease, stage III (moderate): CODE(S): N18.30 - Chronic kidney disease, stage 3 unspecified (6) Hyperlipidemia: CODE(S): E78.5 - Hyperlipidemia, unspecified (7) History of tobacco use disorder: CODE(S): Z87.891 - Personal history of nicotine dependence (8) Pulmonary hypertension: CODE(S): I27.20 - Pulmonary hypertension, unspecified (9) BECKIE (obstructive sleep apnea): CODE(S): G47.33 - Obstructive sleep apnea (adult) (pediatric) (10) History of stroke: CODE(S): Z86.73 - Personal history of transient ischemic attack (TIA), and cerebral infarction without residual deficits (11) History of alcohol abuse: CODE(S): F10.11 - Alcohol abuse, in remission (12) CHF exacerbation: CODE(S): I50.9 - Heart failure, unspecified (13) BPH (benign prostatic hyperplasia): (14) HTN (hypertension): CODE(S): I10 - Essential (primary) hypertension (15) DM2 (diabetes mellitus, type 2): CODE(S): E11.9 - Type 2 diabetes mellitus without complications (16) Dyslipidemia: CODE(S): E78.5 - Hyperlipidemia, unspecified PLAN: Is an 85-year-old male who presents with ulcerations in both lower extremities. These are of several months duration, and appear to have developed while the patient's lower extremities were extremely swollen and edematous as result of congestive heart failure. The swelling and edema has now resolved as a result of aggressive medical therapy. The wounds persist at this time. We are to implement conservative treatment measures, which have been reviewed thoroughly with the patient and his , who is at the bedside. The patient is to continue sleeping flat at night. He is to elevate his legs to heart level even during daytime hours, as much as possible. Prolonged idle sitting has been discouraged. Activity has been encouraged. We are to continue compression to the lower extremities by means of Tubigrip's initially, which may be increased in the near future. A noninvasive lower extremity arterial study will be obtained to assess the patient's arterial perfusion in the lower extremities, and is scheduled to be performed on , 12/30/2020. We are to implement the use of collagenase Santyl, which will be applied topically to the patient's open wounds on a daily basis. Patient and his have been instructed in the appropriate means of application. Patient has been advised to enhance his nutritional intake, using a product such as Glucerna as a supplement. Optimization of the patient's glycemic status has also been recommended. The patient has undergone laboratory studies earlier today at the [facility], and results will be sought. The patient is to return in 1 week for reassessment. Total time: 29 minutes.
--- NOTE | 2020-12-30 12:46 | ART_ITS ---
Reason For Study: Non Healing Wound Procedure A bilateral lower extremity continuous wave Doppler with analog waveform analysis,segmental pressures,and ankle brachial indexes without exercise. Left Segmental Pressures Left brachial= 140mmHg. Left posterior tibial artery = >254mmHg. Left dorsalis pedis artery = >254mmHg. Left digit = 67 mmHg. The left dorsalis pedis waveforms are triphasic. The left posterior tibial artery waveforms are triphasic. Right Segmental Pressures Right brachial= 142mmHg. Right posterior tibial artery = 168mmHg. Right dorsalis pedis artery = 140mmHg. Right digit = 74 mmHg. The right dorsalis pedis waveforms are triphasic. The right posterior tibial artery waveforms are triphasic. Indices The right ankle brachial index by the dorsalis pedis is 0.99. The right ankle brachial index by the posterior tibial artery is 1.18. The right digital-brachial index is 0.52. The left ankle brachial index by the dorsalis pedis is NC. The left ankle brachial index by the posterior tibial artery is NC. The left digital-brachial index is 0.47. VL/Lower Ext Art Exam w/o Exercis Interpretation Summary Triphasic Doppler waveforms are noted at ankle level bilaterally. Pulse-volume recordings appear satisfactory at all levels bilaterally. The resting right ankle-brachial index is normal. The resing left joel-brachial index could not be determined due to the non-compressibility of the vasculature. The right digital-brachial index is mildly diminished. The left digital-brachia l index is moderately diminished. There is evidence of arterial calcification at ankle level on the left. Arteria l flow appears normal at ankle level bilaterally. There is evidence of mild, distal, small-vessel art erial occlusive disease at digital level on the right. There is evidence of moderate, distal, s mall-vessel arterial occlusive disease at digital level on the left. Ordering Physician: Xavier Thapa Referring Physician: Carl Loyd Performed By: Brenda Caceres RVT and Student
[2021-01-04 11:09] VITALS: BP 103/42; PULSE 99; RESP 18; TEMP 36.8; BMI 30.3
--- NOTE | 2021-01-04 12:04 | PCM.WC.HP ---
History of Present Illness Date of Service: 01/04/21 Chief Complaint: Bilateral leg ulcerations History of Wound: This is an 85-year-old male who presented with ulcerations on both lower extremities. The ulcerations occurred approximately 2 months prior to presentation. They are thought to have resulted from severe swelling and edema in both lower extremities which occurred as a result of exacerbation of congestive heart failure. In fact, the patient was hospitalized for several days at [facility] from October 31, 2020, to November 02, 2020, in treatment for congestive heart failure. As result of medical therapy, the patient lost over 20 pounds, and a diuresis was effected. As result, the swelling and edema in the patient's lower extremities resolved, though the resulting ulcerations have persisted. The patient and his had been applying bacitracin topically. He generally sleeps on a flat surface at night. However, he is not very active during daytime hours, often falling asleep in a semi-upright position during the day. The patient has multiple pre-existing medical problems, which are listed below. Recent laboratory results have been reviewed, and revealed the presence of chronic kidney disease, with elevated BUN and creatinine, and diminished protein and serum albumin levels. [facility] Medical History (Updated 01/04/21 @ 12:[address] Xavier Thapa MD) Atrial fibrillation Bilateral leg ulcer CHF (congestive heart failure) CHF exacerbation Chronic kidney disease, stage III (moderate) Congestive heart failure (CHF) Diabetes History of alcohol abuse History of alcohol use History of CVA (cerebrovascular accident) History of stroke History of tobacco use disorder Hyperlipemia Hyperlipidemia Hypertension Leg ulcer Macular degeneration Malnutrition of mild degree BECKIE (obstructive sleep apnea) Pulmonary hypertension Smoker Tricuspid valve regurgitation Home Medications PreserVision AREDS-2 1 ea PO DAILY 12/18/13 [History Last Taken Unknown] aspirin 81 mg PO DAILY@0800 12/18/13 [History Last Taken Unknown] atorvastatin 20 mg PO QHS 12/18/13 [History Last Taken Unknown] glimepiride 2 mg PO DINNER 12/18/13 [History Last Taken Unknown] losartan 150 mg PO DAILY 12/18/13 [History Last Taken Unknown] metformin 1,000 mg PO BIDCM 12/18/13 [History Last Taken Unknown] doxazosin [Cardura] 8 mg PO QHS 10/31/20 [History Last Taken Unknown] metoprolol tartrate 50 mg PO BID 10/31/20 [History Last Taken Unknown] verapamil 180 mg PO BID 10/31/20 [History Last Taken Unknown] warfarin 2.5 mg PO MO 10/31/20 [History Last Taken Unknown] warfarin 5 mg PO SUTUWETHFRSA 10/31/20 [History Last Taken Unknown] furosemide [Lasix] 40 mg PO BID #60 tab 11/02/20 [Rx Last Taken Unknown] Allergy/AdvReac Type Severity Reaction Status Date / Time atenolol Allergy Other Verified 10/31/20 12:21 Social History household members: spouse Smoking Status: Current every day smoker substance use type: does not use Vital Signs Vital Signs Vital Signs: 01/04/21 11:09 Temperature 98.2 F Temperature Source Temporal Pulse Rate 99 Respiratory Rate 18 Blood Pressure 103/42 L Blood Pressure Mean 62 Weight Body Mass Index (BMI) 30.3 Physical Exam Const alert, oriented x3, no apparent distress, average body habitus and well nourished General Appearance: cooperative, comfortable, well kempt and well developed Orientation / Consciousness: awake, oriented to person, oriented to place and oriented to time HEENT normocephalic and head/scalp atraumatic Head and Scalp: normal to inspection, normocephalic and atraumatic External Ear: external ears normal Eyes PERRL and EOMs intact bilaterally General Eye: normal appearance of both eyes Resp normal respiratory effort, normal air movement, no retractions and no use of accessory muscles Effort and Inspection: able to speak in complete sentences Extremity no calf tenderness Extremity Narrative: No significant swelling or edema are noted in the patient's lower extremities bilaterally. General Extremity: Negative for clubbing or cyanosis Skin Wound Narrative: The ulceration on the right posterior ankle appears to be completely healed. The clustered ulcerations on the right posterior calf persist, but appear to be improving. The ulcerations on the left posterior ankle and left posterior calf persist as well, with evidence of mild improvement. There is no sign of infection or cellulitis. Dimensions are documented elsewhere. There is a moderate amount of bioburden involving all aforementioned ulcerations. Neuro oriented x3, CN's II-XII intact bilaterally and moves all extremities Sensorium / Orientation: awake, alert, oriented to person, oriented to place and oriented to time Psych mental status grossly normal Appearance: grossly normal and appropriate Attitude: calm Activity / Motor Behavior: appropriate eye contact Speech: normal speech Mood & Affect: euthymic mood Thought Process: normal thought process Thought Content: normal thought content Attention / Concentration: attention grossly intact Debridement Note Debridement Note Post-Debridement Measurements and Additional Note: Post-Debridement Measurements/Treatment ИВАН Goodson Nurse 1 - General Ulcer Assessment Start: 12/28/20 09:51 Freq: Status: Active Protocol: MATTEO Activity Type Activity Date Activity User E-Sign Co-Sign Detail Recorded Client Recorded Date Recorded By Document 12/28/20 09:54 MW [id number] 12/28/20 10:08 MW Document 01/04/21 11:09 PL [id number] 01/04/21 11:19 PL 12/28/20 01/04/21 09:54 11:09 WC - Today's Visit Information Type of service Initial Visit Follow-up Visit (Physician/[employer] ) Arrival Mode Ambulatory Ambulatory Transfer Assistance None None Accompanied by Patient Identification Verified (Name & Yes Yes ) Patient Requires Transmission-Based No No Precautions Safety Precautions NA NA Height and Weight Body Mass Index (BMI) 30.3 30.3 BMI Classification Obese Obese Vital Signs Temperature (97.8 F-99.1 F) 97.6 F L 98.2 F Temperature Source Temporal Temporal Pulse Rate (60-100) 109 H 99 Pulse Location Monitor Respiratory Rate (12-18) 18 18 Respiratory rate source Observation Oxygen Delivery Method Room Air Blood Pressure (90/60-120/80) 123/69 H 103/42 L Blood Pressure Mean 87 62 Source Monitor Position Sitting Blood Pressure Location Left Arm History Since Last Visit- (Skip if this is Patient's initial visit) Have you changed medications since your No last visit? Any new allergies or adverse reactions No Had a fall/change in ADL's that may No increase risk of falls Signs or symptoms of abuse and/or No neglect since last visit Have you been in the hospital since your No last visit? Has dressing in place as prescribed Yes Has compression in place as prescribed Yes Has offloadiing in place as prescribed N/A Experienced any changes in pain level or No management Pain Scale: 0-10 Numeric Is Patient Pain Free? Yes ИВАН Goodson Nurse 1 - General Ulcer Measurement Start: 12/28/20 09:51 Freq: Status: Active Protocol: Activity Type Activity Date Activity User E-Sign Co-Sign Detail Recorded Client Recorded Date Recorded By Document 12/28/20 09:54 MW [id number] 12/28/20 10:08 MW Document 01/04/21 11:09 PL [id number] 01/04/21 11:19 PL 12/28/20 01/04/21 09:54 11:09 Wound Center Nurse 1 #4 Left Calf -Combined with other wound No No -Current Size (cm) - Length 0.7 0.5 -Current Size (cm) - Width 0.5 0.5 -Current Size (cm) - Depth 0.1 0.1 -Total Square Cm 0.35 0.25 -Photo Taken No No -Epithelialization None Present None Present -Tunneling No No -Undermining/Tunneling No No -Circular Undermining No No -Exudate Amt None Present Medium -Exudate Type Serosanguineous -Wound Margin Flat & Intact -Granulation Amt None Present (0 None Present (0 %) %) -Granulation Quality N/A -Slough/Fibrin Yes Yes -Necrosis Amt Large (67-100%) Large (67-100%) -Necrotic Tissue Type Adherent Slough Adherent Slough -Structure Exposed N/A -Texture (Susie-wound Skin Appearance) Assessed, No Abnormality Localized Edema -Moisture (Susie-wound Skin Appearance) Assessed,Dry/ No Abnormality Scaly -Color (Susie-wound Skin Appearance) No Abnormality, Assessed -Temperature (Susie-wound Skin No Abnormality Appearance) (Pt Warm) -Tenderness on Palpation (Susie-wound Yes No Skin Appearance) -Ulcer Cleansing Rinsed/ Rinsed/ Irrigated with Irrigated with Saline Saline -Foul Odor after Cleansing No No -Anesthetic Used 4% Lidocaine Solution #3 Right Calf -Combined with other wound No -Current Size (cm) - Length 2.8 2.5 -Current Size (cm) - Width 2.0 1.0 -Current Size (cm) - Depth 0.2 0.3 -Total Square Cm 5.60 2.50 -Photo Taken No No -Epithelialization None Present -Tunneling No -Undermining/Tunneling No -Circular Undermining No -Exudate Amt Medium Medium -Exudate Type Serosanguineous Serosanguineous -Wound Margin Distinct, Outline Attached -Granulation Amt Small (1-33%) None Present (0 %) -Granulation Quality [place] -Slough/Fibrin Yes Yes -Necrosis Amt Large (67-100%) None Present (0 %) -Necrotic Tissue Type Adherent Slough Adherent Slough -Structure Exposed N/A -Texture (Susie-wound Skin Appearance) Assessed, No Abnormality Localized Edema -Moisture (Susie-wound Skin Appearance) Assessed,Dry/ No Abnormality Scaly -Color (Susie-wound Skin Appearance) Assessed, Hemosiderin Staining -Temperature (Susie-wound Skin No Abnormality No Abnormality Appearance) (Pt Warm) (Pt Warm) -Tenderness on Palpation (Susie-wound No Skin Appearance) -Ulcer Cleansing Rinsed/ Rinsed/ Irrigated with Irrigated with Saline Saline -Foul Odor after Cleansing No No -Anesthetic Used 4% Lidocaine 5% Lidocaine Solution Gel #2 Left Ankle -Combined with other wound No -Current Size (cm) - Length 0.6 0.5 -Current Size (cm) - Width 1.0 1.5 -Current Size (cm) - Depth 0.5 0.3 -Total Square Cm 0.60 0.75 -Photo Taken No No -Epithelialization None Present None Present -Tunneling No -Undermining/Tunneling No -Circular Undermining No -Exudate Amt Small Medium -Exudate Type Serosanguineous Serosanguineous -Wound Margin Distinct, Outline Attached -Granulation Amt Small (1-33%) Medium (34-66%) -Granulation Quality [place] -Slough/Fibrin Yes -Necrosis Amt Large (67-100%) Medium (34-66%) -Necrotic Tissue Type Adherent Slough Adherent Slough -Structure Exposed N/A -Texture (Susie-wound Skin Appearance) Assessed, Localized Edema -Moisture (Susie-wound Skin Appearance) Assessed,Dry/ Scaly -Color (Susie-wound Skin Appearance) Assessed, Hemosiderin Staining -Temperature (Susie-wound Skin No Abnormality Appearance) (Pt Warm) -Tenderness on Palpation (Susie-wound No Skin Appearance) -Ulcer Cleansing Rinsed/ Irrigated with Saline -Foul Odor after Cleansing No -Anesthetic Used 4% Lidocaine Solution #1 Right Ankle -Combined with other wound No -Current Size (cm) - Length 0.1 -Current Size (cm) - Width 1.0 -Current Size (cm) - Depth 0.1 -Total Square Cm 0.10 -Photo Taken No -Epithelialization None Present -Undermining/Tunneling No -Circular Undermining No -Exudate Amt Small -Exudate Type Serous -Wound Margin Distinct, Outline Attached -Granulation Amt Small (1-33%) -Granulation Quality [place] -Slough/Fibrin Yes -Necrosis Amt Medium (34-66%) -Necrotic Tissue Type Adherent Slough -Structure Exposed N/A -Texture (Susie-wound Skin Appearance) Assessed, Localized Edema -Moisture (Susie-wound Skin Appearance) Assessed,Dry/ Scaly -Color (Susie-wound Skin Appearance) Assessed, Hemosiderin Staining -Temperature (Susie-wound Skin No Abnormality Appearance) (Pt Warm) -Tenderness on Palpation (Susie-wound No Skin Appearance) -Ulcer Cleansing Rinsed/ Irrigated with Saline -Foul Odor after Cleansing No -Anesthetic Used 4% Lidocaine Solution Lower Limb Edema Present Yes Right Calf (cm) 36.0 Point of Measurement (cm from the medial 22.2 instep) Left Calf (cm) 35.5 Left Ankle (cm) 22.5 WC - Nurse 2 - General Ulcer CM Notes Start: 12/28/20 09:51 Freq: Status: Active Protocol: Activity Type Activity Date Activity User E-Sign Co-Sign Detail Recorded Client Recorded Date Recorded By Document 12/28/20 12:52 PL [id number] 12/28/20 12:56 PL 12/28/20 12:52 Wound Center Nurse 2 #4 Left Calf -Time 10:20 -Correct Patient Yes -Correct Side, Site, Position Yes -Correct Procedure Yes -Procedure Performed Yes -Type of Procedure Debridement -Clinical Debridement Subcutaneous -Tissue Removed Subcutaneous -Post Debridement (cm) - Length 0.7 -Post Debridement (cm) - Width 0.5 -Post Debridement (cm) - Depth 0.1 -Total Square (Post) (cm) 0.35 -Area of Debridement (cm) - Length 0.7 -Area of Debridement (cm) - Width 0.5 -Total Square (Area) (cm) 0.35 -Tunneling No -Undermining/Tunneling No -Circular Undermining No -Wound/Ulcer Outcome Not Healed -Ulcer Cleansing Rinsed/ Irrigated with Saline -Foul Odor after Cleansing No -Bioengineered Tissue No -Bleeding Controlled with Pressure -Treatment Response Procedure Tolerated Well -Debridement - Subq, 1st 20sq cm Yes #3 Right Calf -Time 10:20 -Correct Patient Yes -Correct Side, Site, Position Yes -Correct Procedure Yes -Procedure Performed Yes -Type of Procedure Debridement -Clinical Debridement Subcutaneous -Tissue Removed Subcutaneous -Post Debridement (cm) - Length 2.8 -Post Debridement (cm) - Width 2.0 -Post Debridement (cm) - Depth 0.2 -Total Square (Post) (cm) 5.60 -Area of Debridement (cm) - Length 2.8 -Area of Debridement (cm) - Width 2.0 -Total Square (Area) (cm) 5.60 -Tunneling No -Undermining/Tunneling No -Circular Undermining No -Wound/Ulcer Outcome Not Healed -Ulcer Cleansing Rinsed/ Irrigated with Saline -Foul Odor after Cleansing No -Bioengineered Tissue No -Debridement - Subq, 1st 20sq cm No #2 Left Ankle -Time 10:20 -Correct Patient Yes -Correct Side, Site, Position Yes -Correct Procedure Yes -Procedure Performed Yes -Type of Procedure Debridement -Clinical Debridement Subcutaneous -Tissue Removed Subcutaneous -Post Debridement (cm) - Length 0.6 -Post Debridement (cm) - Width 1.0 -Post Debridement (cm) - Depth 0.5 -Total Square (Post) (cm) 0.60 -Area of Debridement (cm) - Length 0.6 -Area of Debridement (cm) - Width 1.0 -Total Square (Area) (cm) 0.60 -Tunneling No -Undermining/Tunneling No -Circular Undermining No -Wound/Ulcer Outcome Not Healed -Ulcer Cleansing Rinsed/ Irrigated with Saline -Foul Odor after Cleansing No -Bioengineered Tissue No -Debridement - Subq, 1st 20sq cm No Pain Scale: 0-10 Numeric Is Patient Pain Free? Yes WC - Nurse 3 - General Ulcer D/C NN Start: 12/28/20 09:51 Freq: Status: Active Protocol: Activity Type Activity Date Activity User E-Sign Co-Sign Detail Recorded Client Recorded Date Recorded By Document 12/28/20 12:52 RAUL [id number] 12/28/20 12:56 RAUL 12/28/20 12:52 Is Patient Pain Free? Yes Wound Care Nurse 3 #4 Left Calf -Ulcer Cleansing Rinsed/ Irrigated with Saline -Foul Odor after Cleansing No -Other Dressing Hydrogel -Primary Dressing Covered/Secured with Dry Gauze & Roll Gauze, Secured with Tape #3 Right Calf -Other Dressing Hydrogel -Primary Dressing Covered/Secured with Dry Gauze & Roll Gauze, Secured with Tape #2 Left Ankle -Other Dressing Hydrogel -Primary Dressing Covered/Secured with Dry Gauze & Roll Gauze, Secured with Tape WC - Visit Discharge Discharge Condition Stable Ambulatory Status Ambulatory Clinical Summary of Care Provided Yes Wound debrided: Right posterior calf Laterality: Right Type of Debridement: Excisional debridement Anesthesia Used: 5% Lidocaine Gel Depth: Down to and including healthy tissue and in the subcutaneous layer Percentage of wound debrided: 100 Instrument Used: 5mm curette Tissue Removed: Bioburden Severity: Fat Layer Exposed Amount of bleeding with debridement: Mild Bleeding Controlled with: Compression and gauze Patient tolerated procedure: Patient tolerated procedure well Additional Wound Wound debrided: Left posterior calf Laterality: Left Type of Debridement: Excisional debridement Anesthesia Used: 5% Lidocaine Gel Depth: Down to and including healthy tissue and in the subcutaneous layer Percentage of wound debrided: 100 Instrument Used: 5mm curette Tissue Removed: Bioburden Severity: Fat Layer Exposed Amount of bleeding with debridement: Mild Bleeding Controlled with: Compression and gauze Patient tolerated procedure: Patient tolerated procedure well Additional Wound Wound debrided: Left posterior ankle Laterality: Left Type of Debridement: Excisional debridement Anesthesia Used: 5% Lidocaine Gel Depth: Down to and including healthy tissue and in the subcutaneous layer Percentage of wound debrided: 100 Instrument Used: 5mm curette Tissue Removed: Bioburden Severity: Fat Layer Exposed Amount of bleeding with debridement: Mild Bleeding Controlled with: Compression and gauze Patient tolerated procedure: Patient tolerated procedure well Assessment/Plan Assessment/Plan (1) Bilateral leg ulcer: CODE(S): L97.919 - Non-pressure chronic ulcer of unspecified part of right lower leg with unspecified severity; L97.929 - Non-pressure chronic ulcer of unspecified part of left lower leg with unspecified severity QUALIFIERS: Non-pressure ulcer stage: with fat layer exposed Qualified Code(s): L97.912 - Non-pressure chronic ulcer of unspecified part of right lower leg with fat layer exposed; L97.922 - Non-pressure chronic ulcer of unspecified part of left lower leg with fat layer exposed (2) Leg ulcer: CODE(S): L97.909 - Non-pressure chronic ulcer of unspecified part of unspecified lower leg with unspecified severity QUALIFIERS: Laterality: unspecified laterality Non-pressure ulcer stage: with fat layer exposed Qualified Code(s): L97.902 - Non-pressure chronic ulcer of unspecified part of unspecified lower leg with fat layer exposed (3) Malnutrition of mild degree: CODE(S): E44.1 - Mild protein-calorie malnutrition (4) Tricuspid valve regurgitation: CODE(S): I07.1 - Rheumatic tricuspid insufficiency (5) CHF (congestive heart failure): CODE(S): I50.9 - Heart failure, unspecified (6) Chronic kidney disease, stage III (moderate): CODE(S): N18.30 - Chronic kidney disease, stage 3 unspecified (7) Hyperlipidemia: CODE(S): E78.5 - Hyperlipidemia, unspecified (8) History of tobacco use disorder: CODE(S): Z87.891 - Personal history of nicotine dependence (9) Pulmonary hypertension: CODE(S): I27.20 - Pulmonary hypertension, unspecified (10) BECKIE (obstructive sleep apnea): CODE(S): G47.33 - Obstructive sleep apnea (adult) (pediatric) (11) History of stroke: CODE(S): Z86.73 - Personal history of transient ischemic attack (TIA), and cerebral infarction without residual deficits (12) History of alcohol abuse: CODE(S): F10.11 - Alcohol abuse, in remission (13) Afib: CODE(S): I48.91 - Unspecified atrial fibrillation (14) BPH (benign prostatic hyperplasia): (15) HTN (hypertension): CODE(S): I10 - Essential (primary) hypertension (16) DM2 (diabetes mellitus, type 2): CODE(S): E11.9 - Type 2 diabetes mellitus without complications (17) Dyslipidemia: CODE(S): E78.5 - Hyperlipidemia, unspecified PLAN: This is an 85-year-old male who presented with ulcerations in both lower extremities. These were of several months duration, and appear to have developed while the patient's lower extremities were extremely swollen and edematous as result of congestive heart failure. The swelling and edema has now resolved as a result of aggressive medical therapy. The wounds persist at this time. We are to continue conservative treatment measures, which have been reviewed thoroughly with the patient and his , who is at the bedside. The patient is to continue sleeping flat at night. He is to elevate his legs to heart level even during daytime hours, as much as possible. Prolonged idle sitting has been discouraged. Activity has been encouraged. We are to continue compression to the lower extremities by means of Tubigrips, which will be doubled. A noninvasive lower extremity arterial study reveals normal arterial flow at ankle level bilaterally. 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 We are to continue the use of collagenase Santyl, which will be applied topically to the patient's open wounds on a daily basis. The patient and his have been instructed in the appropriate means of application. The patient has been advised to enhance his nutritional intake, using a product such as Glucerna as a supplement. Optimization of the patient's glycemic status has also been recommended. The patient has undergone laboratory studies earlier today at the [facility], and results will be sought. The patient is to return in 1 week for reassessment. Total time: 28 minutes.
[2021-01-11 08:41] VITALS: BP 137/61; PULSE 108; RESP 16; TEMP 36.5; BMI 30.3
--- NOTE | 2021-01-11 09:00 | HP.PCM_ITS ---
History of Present Illness Date of Service: 01/11/21 Chief Complaint: Bilateral leg ulcerations History of Wound: This is an 85-year-old male who presented with ulcerations on both lower extremities. The ulcerations occurred approximately 2 months prior to presentation. They are thought to have resulted from severe swelling and edema in both lower extremities which occurred as a result of exacerbation of congestive heart failure. In fact, the patient was hospitalized for several days at [facility] from October 31, 2020, to November 02, 2020, in treatment for congestive heart failure. As result of medical therapy, the patient lost over 20 pounds, and a diuresis was effected. As result, the swelling and edema in the patient's lower extremities resolved, though the resulting ulcerations have persisted. The patient and his had been applying bacitracin topically. He generally sleeps on a flat surface at night. However, he is not very active during daytime hours, often falling asleep in a semi-upright position during the day. The patient has multiple pre-existing medical problems, which are listed below. Recent laboratory results have been reviewed, and revealed the presence of chronic kidney disease, with elevated BUN and creatinine, and diminished protein and serum albumin levels. [facility] Medical History (Updated 01/04/21 @ 12:[address] Xavier Thapa MD) Atrial fibrillation Bilateral leg ulcer CHF (congestive heart failure) CHF exacerbation Chronic kidney disease, stage III (moderate) Congestive heart failure (CHF) Diabetes History of alcohol abuse History of alcohol use History of CVA (cerebrovascular accident) History of stroke History of tobacco use disorder Hyperlipemia Hyperlipidemia Hypertension Leg ulcer Macular degeneration Malnutrition of mild degree BECKIE (obstructive sleep apnea) Pulmonary hypertension Smoker Tricuspid valve regurgitation Home Medications PreserVision AREDS-2 1 ea PO DAILY 12/18/13 [History Last Taken Unknown] aspirin 81 mg PO DAILY@0800 12/18/13 [History Last Taken Unknown] atorvastatin 20 mg PO QHS 12/18/13 [History Last Taken Unknown] glimepiride 2 mg PO DINNER 12/18/13 [History Last Taken Unknown] losartan 150 mg PO DAILY 12/18/13 [History Last Taken Unknown] metformin 1,000 mg PO BIDCM 12/18/13 [History Last Taken Unknown] doxazosin [Cardura] 8 mg PO QHS 10/31/20 [History Last Taken Unknown] metoprolol tartrate 50 mg PO BID 10/31/20 [History Last Taken Unknown] verapamil 180 mg PO BID 10/31/20 [History Last Taken Unknown] warfarin 2.5 mg PO MO 10/31/20 [History Last Taken Unknown] warfarin 5 mg PO [id number] 10/31/20 [History Last Taken Unknown] furosemide [Lasix] 40 mg PO BID #60 tab 11/02/20 [Rx Last Taken Unknown] Allergy/AdvReac Type Severity Reaction Status Date / Time atenolol Allergy Other Verified 10/31/20 12:21 Social History household members: spouse Smoking Status: Current every day smoker substance use type: does not use Vital Signs Vital Signs Vital Signs: 01/11/21 08:41 Temperature 97.7 F L Temperature Source Temporal Pulse Rate 108 H Respiratory Rate 16 Blood Pressure 137/61 H Blood Pressure Mean 86 Blood Pressure Source Monitor Blood Pressure Position Sitting Blood Pressure Location Left Arm Oxygen Delivery Method Room Air Weight Body Mass Index (BMI) 30.3 Physical Exam Const alert, oriented x3, no apparent distress, average body habitus and well nourished General Appearance: cooperative, comfortable, well kempt and well developed Orientation / Consciousness: awake, oriented to person, oriented to place and oriented to time HEENT normocephalic and head/scalp atraumatic Head and Scalp: normal to inspection, normocephalic and atraumatic External Ear: external ears normal Eyes PERRL and EOMs intact bilaterally General Eye: normal appearance of both eyes Resp normal respiratory effort, normal air movement, no retractions and no use of accessory muscles Effort and Inspection: able to speak in complete sentences Extremity no clubbing, cyanosis or edema and no calf tenderness Extremity Narrative: No significant swelling or edema are noted in the patient's lower extremities. Faint hyperpigmentation is noted in the gaiter areas bilaterally. General Extremity: Negative for clubbing or cyanosis Skin Wound Narrative: Current ulcerations are the following: There is an ulceration on the right posterior ankle, right posterior calf, and on the left posterior calf. As compared to last week, all are smaller in size. Dimensions are documented elsewhere. There is no sign of infection or cellulitis. There is a moderate amount of bioburden at each of the 3 sites. Neuro oriented x3, CN's II-XII intact bilaterally and moves all extremities Sensorium / Orientation: awake, alert, oriented to person, oriented to place and oriented to time Psych Appearance: grossly normal and appropriate Attitude: calm Activity / Motor Behavior: appropriate eye contact Speech: normal speech Mood & Affect: euthymic mood Thought Process: normal thought process Thought Content: normal thought content Attention / Concentration: attention grossly intact Debridement Note Debridement Note Post-Debridement Measurements and Additional Note: Post-Debridement Measurements/Treatment - Nurse 1 - General Ulcer Assessment Start: 12/28/20 09:51 Freq: Status: Active Protocol: [email or web address] Activity Type Activity Date Activity User E-Sign Co-Sign Detail Recorded Client Recorded Date Recorded By Document 12/28/20 09:54 MW [id number] 12/28/20 10:08 MW Document 01/04/21 11:09 PL [id number] 01/04/21 11:19 PL Document 01/11/21 08:41 BM [id number] 01/11/21 08:47 BM 12/28/20 01/04/21 01/11/21 09:54 11:09 08:41 - Today's Visit Information Type of service Initial Visit Follow-up Visit Follow-up Visit (Physician/PUBLIC HEALTH PROFESSOR (Physician/PUBLIC HEALTH PROFESSOR ) ) Arrival Mode Ambulatory Ambulatory Ambulatory Transfer Assistance None None None Accompanied by Patient Identification Verified (Name & Yes Yes Yes ) Patient Requires Transmission-Based No No No Precautions Safety Precautions NA NA Height and Weight Body Mass Index (BMI) 30.3 30.3 30.3 BMI Classification Obese Obese Obese Vital Signs Temperature (97.8 F-99.1 F) 97.6 F L 98.2 F 97.7 F L Temperature Source Temporal Temporal Temporal Pulse Rate (60-100) 109 H 99 108 H Pulse Location Monitor Monitor Respiratory Rate (12-18) 18 18 16 Respiratory rate source Observation Observation Oxygen Delivery Method Room Air Room Air Blood Pressure (90/60-120/80) 123/69 H 103/42 L 137/61 H Blood Pressure Mean 87 62 86 Source Monitor Monitor Position Sitting Sitting Blood Pressure Location Left Arm Left Arm History Since Last Visit- (Skip if this is Patient's initial visit) Have you changed medications since your No No last visit? Any new allergies or adverse reactions No No Had a fall/change in ADL's that may No No increase risk of falls Signs or symptoms of abuse and/or No No neglect since last visit Have you been in the hospital since your No No last visit? Has dressing in place as prescribed Yes Yes Has compression in place as prescribed Yes Yes Has offloadiing in place as prescribed N/A N/A Experienced any changes in pain level or No No management Left Footwear Regular Shoe Right Footwear Regular Shoe Pain Scale: 0-10 Numeric Is Patient Pain Free? Yes Yes WC - Nurse 1 - General Ulcer Measurement Start: 12/28/20 09:51 Freq: Status: Active Protocol: Activity Type Activity Date Activity User E-Sign Co-Sign Detail Recorded Client Recorded Date Recorded By Document 12/28/20 09:54 MW [id number] 12/28/20 10:08 MW Document 01/04/21 11:09 PL [id number] 01/04/21 11:19 PL Document 01/11/21 08:41 BMF [id number] 01/11/21 08:47 BMF 12/28/20 01/04/21 01/11/21 09:54 11:09 08:41 Wound Center Nurse 1 #4 Left Calf -Combined with other wound No No No -Current Size (cm) - Length 0.7 0.5 1 -Current Size (cm) - Width 0.5 0.5 0.7 -Current Size (cm) - Depth 0.1 0.1 0.2 -Total Square Cm 0.35 0.25 0.7 -Photo Taken No No No -Epithelialization None Present None Present None Present -Tunneling No No No -Undermining/Tunneling No No No -Circular Undermining No No No -Exudate Amt None Present Medium Medium -Exudate Type Serosanguineous Serosanguineous -Wound Margin Flat & Intact Distinct, Outline Attached -Granulation Amt None Present (0 None Present (0 Small (1-33%) %) %) -Granulation Quality N/A Red -Slough/Fibrin Yes Yes Yes -Necrosis Amt Large (67-100%) Large (67-100%) Large (67-100%) -Necrotic Tissue Type Adherent Slough Adherent Slough Adherent Slough -Structure Exposed N/A -Texture (Susie-wound Skin Appearance) Assessed, No Abnormality Assessed, Localized Edema Scarring -Moisture (Susie-wound Skin Appearance) Assessed,Dry/ No Abnormality Assessed,Dry/ Scaly Scaly -Color (Susie-wound Skin Appearance) No Abnormality, Assessed Assessed -Temperature (Susie-wound Skin No Abnormality No Abnormality Appearance) (Pt Warm) (Pt Warm) -Tenderness on Palpation (Susie-wound Yes No No Skin Appearance) -Ulcer Cleansing Rinsed/ Rinsed/ Rinsed/ Irrigated with Irrigated with Irrigated with Saline Saline Saline -Foul Odor after Cleansing No No No -Anesthetic Used 4% Lidocaine 5% Lidocaine Solution Gel #3 Right Calf -Combined with other wound No No -Current Size (cm) - Length 2.8 2.5 2 -Current Size (cm) - Width 2.0 1.0 0.9 -Current Size (cm) - Depth 0.2 0.3 0.2 -Total Square Cm 5.60 2.50 1.8 -Photo Taken No No No -Epithelialization None Present None Present -Tunneling No No -Undermining/Tunneling No No -Circular Undermining No No -Exudate Amt Medium Medium Medium -Exudate Type Serosanguineous Serosanguineous Serosanguineous -Wound Margin Distinct, Distinct, Outline Outline Attached Attached -Granulation Amt Small (1-33%) None Present (0 Medium (34-66%) %) -Granulation Quality [place] Red -Slough/Fibrin Yes Yes Yes -Necrosis Amt Large (67-100%) None Present (0 Medium (34-66%) %) -Necrotic Tissue Type Adherent Slough Adherent Slough Adherent Slough -Structure Exposed N/A -Texture (Susie-wound Skin Appearance) Assessed, No Abnormality Assessed, Localized Edema Scarring -Moisture (Susie-wound Skin Appearance) Assessed,Dry/ No Abnormality Assessed Scaly -Color (Susie-wound Skin Appearance) Assessed, Assessed Hemosiderin Staining -Temperature (Susie-wound Skin No Abnormality No Abnormality No Abnormality Appearance) (Pt Warm) (Pt Warm) (Pt Warm) -Tenderness on Palpation (Susie-wound No No Skin Appearance) -Ulcer Cleansing Rinsed/ Rinsed/ Rinsed/ Irrigated with Irrigated with Irrigated with Saline Saline Saline -Foul Odor after Cleansing No No No -Anesthetic Used 4% Lidocaine 5% Lidocaine 5% Lidocaine Solution Gel Gel #2 Left Ankle -Combined with other wound No No -Current Size (cm) - Length 0.6 0.5 1 -Current Size (cm) - Width 1.0 1.5 0.7 -Current Size (cm) - Depth 0.5 0.3 0.2 -Total Square Cm 0.60 0.75 0.7 -Photo Taken No No No -Epithelialization None Present None Present None Present -Tunneling No No -Undermining/Tunneling No No -Circular Undermining No No -Exudate Amt Small Medium Medium -Exudate Type Serosanguineous Serosanguineous Serosanguineous -Wound Margin Distinct, Thickened Outline Attached -Granulation Amt Small (1-33%) Medium (34-66%) Large (67-100%) -Granulation Quality [place] Red -Slough/Fibrin Yes Yes -Necrosis Amt Large (67-100%) Medium (34-66%) Small (1-33%) -Necrotic Tissue Type Adherent Slough Adherent Slough Adherent Slough -Structure Exposed N/A -Texture (Susie-wound Skin Appearance) Assessed, Assessed, Localized Edema Scarring -Moisture (Susie-wound Skin Appearance) Assessed,Dry/ Assessed,Dry/ Scaly Scaly -Color (Susie-wound Skin Appearance) Assessed, Assessed Hemosiderin Staining -Temperature (Susie-wound Skin No Abnormality No Abnormality Appearance) (Pt Warm) (Pt Warm) -Tenderness on Palpation (Susie-wound No No Skin Appearance) -Ulcer Cleansing Rinsed/ Rinsed/ Irrigated with Irrigated with Saline Saline -Foul Odor after Cleansing No No -Anesthetic Used 4% Lidocaine 5% Lidocaine Solution Gel #1 Right Ankle -Combined with other wound No -Current Size (cm) - Length 0.1 -Current Size (cm) - Width 1.0 -Current Size (cm) - Depth 0.1 -Total Square Cm 0.10 -Photo Taken No -Epithelialization None Present -Undermining/Tunneling No -Circular Undermining No -Exudate Amt Small -Exudate Type Serous -Wound Margin Distinct, Outline Attached -Granulation Amt Small (1-33%) -Granulation Quality [place] -Slough/Fibrin Yes -Necrosis Amt Medium (34-66%) -Necrotic Tissue Type Adherent Slough -Structure Exposed N/A -Texture (Susie-wound Skin Appearance) Assessed, Localized Edema -Moisture (Susie-wound Skin Appearance) Assessed,Dry/ Scaly -Color (Susie-wound Skin Appearance) Assessed, Hemosiderin Staining -Temperature (Susie-wound Skin No Abnormality Appearance) (Pt Warm) -Tenderness on Palpation (Susie-wound No Skin Appearance) -Ulcer Cleansing Rinsed/ Irrigated with Saline -Foul Odor after Cleansing No -Anesthetic Used 4% Lidocaine Solution Lower Limb Edema Present Yes Yes Right Calf (cm) 36.0 36.7 Right Ankle (cm) 23 Point of Measurement (cm from the medial 22.2 instep) Left Calf (cm) 35.5 35 Left Ankle (cm) 22.5 23.1 WC - Nurse 2 - General Ulcer CM Notes Start: 12/28/20 09:51 Freq: Status: Active Protocol: Activity Type Activity Date Activity User E-Sign Co-Sign Detail Recorded Client Recorded Date Recorded By Document 12/28/20 12:52 PL [id number] 12/28/20 12:56 PL Document 01/04/21 14:30 PL [id number] 01/04/21 14:34 PL 12/28/20 01/04/21 12:52 14:30 Wound Center Nurse 2 #4 Left Calf -Time 10:20 11:38 -Correct Patient Yes Yes -Correct Side, Site, Position Yes Yes -Correct Procedure Yes Yes -Procedure Performed Yes Yes -Type of Procedure Debridement Debridement -Clinical Debridement Subcutaneous Subcutaneous -Tissue Removed Subcutaneous Subcutaneous -Post Debridement (cm) - Length 0.7 0.5 -Post Debridement (cm) - Width 0.5 0.5 -Post Debridement (cm) - Depth 0.1 0.1 -Total Square (Post) (cm) 0.35 0.25 -Area of Debridement (cm) - Length 0.7 0.5 -Area of Debridement (cm) - Width 0.5 0.5 -Total Square (Area) (cm) 0.35 0.25 -Tunneling No No -Undermining/Tunneling No No -Circular Undermining No No -Wound/Ulcer Outcome Not Healed Not Healed -Ulcer Cleansing Rinsed/ Rinsed/ Irrigated with Irrigated with Saline Saline -Foul Odor after Cleansing No No -Bioengineered Tissue No No -Bleeding Controlled with Pressure -Treatment Response Procedure Tolerated Well -Debridement - Subq, 1st 20sq cm Yes Yes #3 Right Calf -Time 10:20 11:38 -Correct Patient Yes Yes -Correct Side, Site, Position Yes Yes -Correct Procedure Yes Yes -Procedure Performed Yes Yes -Type of Procedure Debridement Debridement -Clinical Debridement Subcutaneous Subcutaneous -Tissue Removed Subcutaneous Subcutaneous -Post Debridement (cm) - Length 2.8 2.5 -Post Debridement (cm) - Width 2.0 1.0 -Post Debridement (cm) - Depth 0.2 0.3 -Total Square (Post) (cm) 5.60 2.50 -Area of Debridement (cm) - Length 2.8 2.5 -Area of Debridement (cm) - Width 2.0 1.0 -Total Square (Area) (cm) 5.60 2.50 -Tunneling No No -Undermining/Tunneling No No -Circular Undermining No No -Wound/Ulcer Outcome Not Healed Not Healed -Ulcer Cleansing Rinsed/ Rinsed/ Irrigated with Irrigated with Saline Saline -Foul Odor after Cleansing No No -Bioengineered Tissue No No -Bleeding Controlled with Pressure -Treatment Response Procedure Tolerated Well -Debridement - Subq, 1st 20sq cm No No #2 Left Ankle -Time 10:20 11:38 -Correct Patient Yes Yes -Correct Side, Site, Position Yes Yes -Correct Procedure Yes Yes -Procedure Performed Yes Yes -Type of Procedure Debridement Debridement -Clinical Debridement Subcutaneous Subcutaneous -Tissue Removed Subcutaneous Subcutaneous -Post Debridement (cm) - Length 0.6 0.5 -Post Debridement (cm) - Width 1.0 1.5 -Post Debridement (cm) - Depth 0.5 0.3 -Total Square (Post) (cm) 0.60 0.75 -Area of Debridement (cm) - Length 0.6 0.5 -Area of Debridement (cm) - Width 1.0 1.3 -Total Square (Area) (cm) 0.60 0.65 -Tunneling No No -Undermining/Tunneling No No -Circular Undermining No No -Wound/Ulcer Outcome Not Healed Not Healed -Ulcer Cleansing Rinsed/ Rinsed/ Irrigated with Irrigated with Saline Saline -Foul Odor after Cleansing No No -Bioengineered Tissue No No -Debridement - Subq, 1st 20sq cm No No Pain Scale: 0-10 Numeric Is Patient Pain Free? Yes Yes WC - Nurse 3 - General Ulcer D/C NN Start: 12/28/20 09:51 Freq: Status: Active Protocol: Activity Type Activity Date Activity User E-Sign Co-Sign Detail Recorded Client Recorded Date Recorded By Document 12/28/20 12:52 PL [id number] 12/28/20 12:56 PL Document 01/04/21 14:30 PL [id number] 01/04/21 14:34 PL 12/28/20 01/04/21 12:52 14:30 Pain Scale: 0-10 Numeric Is Patient Pain Free? Yes Yes Wound Care Nurse 3 #4 Left Calf -Ulcer Cleansing Rinsed/ Rinsed/ Irrigated with Irrigated with Saline Saline -Foul Odor after Cleansing No No -Other Dressing Hydrogel Hydrogel -Primary Dressing Covered/Secured with Dry Gauze & Dry Gauze & Roll Gauze, Roll Gauze, Secured with Secured with Tape Tape #3 Right Calf -Ulcer Cleansing Rinsed/ Irrigated with Saline -Foul Odor after Cleansing No -Other Dressing Hydrogel Hydrogel -Primary Dressing Covered/Secured with Dry Gauze & Dry Gauze & Roll Gauze, Roll Gauze, Secured with Secured with Tape Tape #2 Left Ankle -Ulcer Cleansing Rinsed/ Irrigated with Saline -Foul Odor after Cleansing No -Other Dressing Hydrogel Hydrogel -Primary Dressing Covered/Secured with Dry Gauze & Dry Gauze & Roll Gauze, Roll Gauze, Secured with Secured with Tape Tape Bilateral -Tubular Bandage Double Layer -Size of Tubigrip Used Size F -Size F ($) 4 WC - Visit Discharge Discharge Condition Stable Stable Ambulatory Status Ambulatory Ambulatory Transportation Private Auto Clinical Summary of Care Provided Yes Yes Wound debrided: Right posterior ankle Laterality: Right Type of Debridement: Excisional debridement Anesthesia Used: 5% Lidocaine Gel Depth: Down to and including healthy tissue and in the subcutaneous layer Percentage of wound debrided: 100 Instrument Used: 5mm curette Tissue Removed: Bioburden Severity: Fat Layer Exposed Amount of bleeding with debridement: Mild Bleeding Controlled with: Compression and gauze Patient tolerated procedure: Patient tolerated procedure well Additional Wound Wound debrided: Right posterior calf Laterality: Right Type of Debridement: Excisional debridement Anesthesia Used: 5% Lidocaine Gel Depth: Down to and including healthy tissue and in the subcutaneous layer Percentage of wound debrided: 100 Instrument Used: 5mm curette Tissue Removed: Bioburden Severity: Fat Layer Exposed Amount of bleeding with debridement: Mild Patient tolerated procedure: Patient tolerated procedure well Additional Wound Wound debrided: Left posterior calf Laterality: Left Type of Debridement: Excisional debridement Anesthesia Used: 5% Lidocaine Gel Depth: Down to and including healthy tissue and in the subcutaneous layer Percentage of wound debrided: 100 Instrument Used: 5mm curette Tissue Removed: Bioburden Severity: Fat Layer Exposed Amount of bleeding with debridement: Mild Bleeding Controlled with: Compression and gauze Patient tolerated procedure: Patient tolerated procedure well Assessment/Plan Assessment/Plan (1) Bilateral leg ulcer: CODE(S): L97.919 - Non-pressure chronic ulcer of unspecified part of right lower leg with unspecified severity; L97.929 - Non-pressure chronic ulcer of unspecified part of left lower leg with unspecified severity QUALIFIERS: Non-pressure ulcer stage: with fat layer exposed Qualified Code(s): L97.912 - Non-pressure chronic ulcer of unspecified part of right lower leg with fat layer exposed; L97.922 - Non-pressure chronic ulcer of unspecified part of left lower leg with fat layer exposed (2) Leg ulcer: CODE(S): L97.909 - Non-pressure chronic ulcer of unspecified part of unspecified lower leg with unspecified severity QUALIFIERS: Laterality: unspecified laterality Non-pressure ulcer stage: with fat layer exposed Qualified Code(s): L97.902 - Non-pressure chronic ulcer of unspecified part of unspecified lower leg with fat layer exposed (3) Malnutrition of mild degree: CODE(S): E44.1 - Mild protein-calorie malnutrition (4) Tricuspid valve regurgitation: CODE(S): I07.1 - Rheumatic tricuspid insufficiency (5) CHF (congestive heart failure): CODE(S): I50.9 - Heart failure, unspecified (6) Chronic kidney disease, stage III (moderate): CODE(S): N18.30 - Chronic kidney disease, stage 3 unspecified (7) Hyperlipidemia: CODE(S): E78.5 - Hyperlipidemia, unspecified (8) History of tobacco use disorder: CODE(S): Z87.891 - Personal history of nicotine dependence (9) Pulmonary hypertension: CODE(S): I27.20 - Pulmonary hypertension, unspecified (10) BECKIE (obstructive sleep apnea): CODE(S): G47.33 - Obstructive sleep apnea (adult) (pediatric) (11) History of stroke: CODE(S): Z86.73 - Personal history of transient ischemic attack (TIA), and cerebral infarction without residual deficits (12) History of alcohol abuse: CODE(S): F10.11 - Alcohol abuse, in remission (13) Afib: CODE(S): I48.91 - Unspecified atrial fibrillation (14) BPH (benign prostatic hyperplasia): (15) HTN (hypertension): CODE(S): I10 - Essential (primary) hypertension (16) DM2 (diabetes mellitus, type 2): CODE(S): E11.9 - Type 2 diabetes mellitus without complications (17) Dyslipidemia: CODE(S): E78.5 - Hyperlipidemia, unspecified PLAN: This is an 85-year-old male who presented with ulcerations in both lower extremities. These were of several months duration, and appear to have developed while the patient's lower extremities were extremely swollen and edematous as result of congestive heart failure. The swelling and edema has now resolved as a result of aggressive medical therapy. The wounds persist at this time. We are to continue conservative treatment measures, which have been reviewed thoroughly with the patient and his , who is at the bedside. The patient is to continue sleeping flat at night. He is to elevate his legs to heart level even during daytime hours, as much as possible. Prolonged idle sitting has been discouraged. Activity has been encouraged. We are to continue compression to the lower extremities by means of Tubigrips, which will be doubled. A noninvasive lower extremity arterial study reveals normal arterial flow at ankle level bilaterally. 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 We are to continue the use of collagenase Santyl, which will be applied topically to the patient's open wounds on a daily basis. The patient and his have been instructed in the appropriate means of application. The patient has been advised to enhance his nutritional intake to enhance the healing process. Optimization of the patient's glycemic status has also been recommended, and the patient is collaborating with his primary care physician, Dr. Loyd, in this regard. The patient has undergone laboratory studies recently at the [facility], and results will be sought. However, the patient's primary care physician, Dr. Loyd, continues to monitor the patient from metabolic standpoint on an ongoing basis. The patient is to return in 1 week for reassessment. Total time: 29 minutes.
[2021-01-18 09:11] VITALS: BP 139/63; PULSE 103; TEMP 36.1; BMI 30.3
--- NOTE | 2021-01-18 10:29 | HP.PCM_ITS ---
History of Present Illness Date of Service: 01/18/21 Chief Complaint: Bilateral leg ulcerations History of Wound: This is an 85-year-old male who presented with ulcerations on both lower extremities. The ulcerations occurred approximately 2 months prior to presentation. They are thought to have resulted from severe swelling and edema in both lower extremities which occurred as a result of exacerbation of congestive heart failure. In fact, the patient was hospitalized for several days at [facility] from October 31, 2020, to November 02, 2020, in treatment for congestive heart failure. As result of medical therapy, the patient lost over 20 pounds, and a diuresis was effected. As result, the swelling and edema in the patient's lower extremities resolved, though the resulting ulcerations have persisted. The patient and his had been applying bacitracin topically. He generally sleeps on a flat surface at night. However, he is not very active during daytime hours, often falling asleep in a semi-upright position during the day. The patient has multiple pre-existing medical problems, which are listed below. Recent laboratory results have been reviewed, and revealed the presence of chronic kidney disease, with elevated BUN and creatinine, and diminished protein and serum albumin levels. [facility] Medical History Atrial fibrillation Bilateral leg ulcer CHF (congestive heart failure) CHF exacerbation Chronic kidney disease, stage III (moderate) Congestive heart failure (CHF) Diabetes History of alcohol abuse History of alcohol use History of CVA (cerebrovascular accident) History of stroke History of tobacco use disorder Hyperlipemia Hyperlipidemia Hypertension Leg ulcer Macular degeneration Malnutrition of mild degree BECKIE (obstructive sleep apnea) Pulmonary hypertension Smoker Tricuspid valve regurgitation Home Medications PreserVision AREDS-2 1 ea PO DAILY 12/18/13 [History Last Taken Unknown] aspirin 81 mg PO DAILY@0800 12/18/13 [History Last Taken Unknown] atorvastatin 20 mg PO QHS 12/18/13 [History Last Taken Unknown] glimepiride 2 mg PO DINNER 12/18/13 [History Last Taken Unknown] losartan 150 mg PO DAILY 12/18/13 [History Last Taken Unknown] metformin 1,000 mg PO BIDCM 12/18/13 [History Last Taken Unknown] doxazosin [Cardura] 8 mg PO QHS 10/31/20 [History Last Taken Unknown] metoprolol tartrate 50 mg PO BID 10/31/20 [History Last Taken Unknown] verapamil 180 mg PO BID 10/31/20 [History Last Taken Unknown] warfarin 2.5 mg PO MO 10/31/20 [History Last Taken Unknown] warfarin 5 mg PO [id number] 10/31/20 [History Last Taken Unknown] furosemide [Lasix] 40 mg PO BID #60 tab 11/02/20 [Rx Last Taken Unknown] Allergy/AdvReac Type Severity Reaction Status Date / Time atenolol Allergy Other Verified 10/31/20 12:21 Social History household members: spouse Smoking Status: Current every day smoker substance use type: does not use Vital Signs Vital Signs Vital Signs: 01/18/21 09:11 Temperature 97.0 F L Temperature Source Temporal Pulse Rate 103 H Blood Pressure 139/63 H Blood Pressure Mean 88 Blood Pressure Source Monitor Blood Pressure Position Sitting Blood Pressure Location Left Arm Weight Body Mass Index (BMI) 30.3 Physical Exam Const alert, oriented x3, no apparent distress and well nourished General Appearance: cooperative, comfortable, well kempt and well developed Orientation / Consciousness: awake, oriented to person, oriented to place and oriented to time HEENT normocephalic and head/scalp atraumatic Head and Scalp: normal to inspection, normocephalic and atraumatic External Ear: external ears normal Eyes PERRL and EOMs intact bilaterally General Eye: normal appearance of both eyes Resp normal respiratory effort, normal air movement, no retractions and no use of accessory muscles Effort and Inspection: able to speak in complete sentences Extremity no clubbing, cyanosis or edema and no calf tenderness Extremity Narrative: No significant swelling or edema are noted in the patient's lower extremities bilaterally. General Extremity: Negative for clubbing or cyanosis Skin Wound Narrative: Ulcerations persist in the patient's lower extremities bilaterally. There are 3 total ulcerations. There are ulcerations on the left posterior ankle, left posterior calf, and the right posterior calf. They are little changed in size or appearance. Dimensions are documented elsewhere. The posterior calf ulcerations demonstrate a significant amount of bioburden and yellowish, nonviable material. As result of its unfavorable appearance, the left posterior calf ulceration has been cultured by swab today. Both aerobic and anaerobic swab cultures have been obtained. Neuro oriented x3, CN's II-XII intact bilaterally and moves all extremities Speech: speech normal Psych Appearance: grossly normal and appropriate Attitude: calm Activity / Motor Behavior: appropriate eye contact Speech: normal speech Mood & Affect: euthymic mood Thought Process: normal thought process Thought Content: normal thought content Attention / Concentration: attention grossly intact Debridement Note Debridement Note Post-Debridement Measurements and Additional Note: Post-Debridement Measurements/Treatment - Nurse 1 - General Ulcer Assessment Start: 12/28/20 09:51 Freq: Status: Active Protocol: [employer] Activity Type Activity Date Activity User E-Sign Co-Sign Detail Recorded Client Recorded Date Recorded By Document 12/28/20 09:54 MW [id number] 12/28/20 10:08 MW Document 01/04/21 11:09 PL [id number] 01/04/21 11:19 PL Document 01/11/21 08:41 BMF [id number] 01/11/21 08:47 BMF Document 01/18/21 09:11 KR [id number] 01/18/21 09:15 KR 12/28/20 01/04/21 01/11/21 09:54 11:09 08:41 - Today's Visit Information Type of service Initial Visit Follow-up Visit Follow-up Visit (Physician/LATHE TENDER (Physician/LATHE TENDER ) ) Arrival Mode Ambulatory Ambulatory Ambulatory Transfer Assistance None None None Accompanied by Patient Identification Verified (Name & Yes Yes Yes ) Patient Requires Transmission-Based No No No Precautions Safety Precautions NA NA Height and Weight Body Mass Index (BMI) 30.3 30.3 30.3 BMI Classification Obese Obese Obese Vital Signs Temperature (97.8 F-99.1 F) 97.6 F L 98.2 F 97.7 F L Temperature Source Temporal Temporal Temporal Pulse Rate (60-100) 109 H 99 108 H Pulse Location Monitor Monitor Respiratory Rate (12-18) 18 18 16 Respiratory rate source Observation Observation Oxygen Delivery Method Room Air Room Air Blood Pressure (90/60-120/80) 123/69 H 103/42 L 137/61 H Blood Pressure Mean 87 62 86 Source Monitor Monitor Position Sitting Sitting Blood Pressure Location Left Arm Left Arm History Since Last Visit- (Skip if this is Patient's initial visit) Have you changed medications since your No No last visit? Any new allergies or adverse reactions No No Had a fall/change in ADL's that may No No increase risk of falls Signs or symptoms of abuse and/or No No neglect since last visit Have you been in the hospital since your No No last visit? Has dressing in place as prescribed Yes Yes Has compression in place as prescribed Yes Yes Has offloadiing in place as prescribed N/A N/A Experienced any changes in pain level or No No management Left Footwear Regular Shoe Right Footwear Regular Shoe Pain Scale: 0-10 Numeric Is Patient Pain Free? Yes Yes 01/18/21 09:11 - Today's Visit Information Type of service Follow-up Visit (Physician/LATHE TENDER ) Arrival Mode Ambulatory Transfer Assistance Accompanied by Patient Identification Verified (Name & Yes ) Patient Requires Transmission-Based Precautions Safety Precautions Height and Weight Body Mass Index (BMI) 30.3 BMI Classification Obese Vital Signs Temperature (97.8 F-99.1 F) 97.0 F L Temperature Source Temporal Pulse Rate (60-100) 103 H Pulse Location Monitor Respiratory Rate (12-18) Respiratory rate source Oxygen Delivery Method Blood Pressure (90/60-120/80) 139/63 H Blood Pressure Mean 88 Source Monitor Position Sitting Blood Pressure Location Left Arm History Since Last Visit- (Skip if this is Patient's initial visit) Have you changed medications since your No last visit? Any new allergies or adverse reactions No Had a fall/change in ADL's that may No increase risk of falls Signs or symptoms of abuse and/or No neglect since last visit Have you been in the hospital since your No last visit? Has dressing in place as prescribed Yes Has compression in place as prescribed Yes Has offloadiing in place as prescribed N/A Experienced any changes in pain level or No management Left Footwear Regular Shoe Right Footwear Regular Shoe Pain Scale: 0-10 Numeric Is Patient Pain Free? Yes - Nurse 1 - General Ulcer Measurement Start: 12/28/20 09:51 Freq: Status: Active Protocol: Activity Type Activity Date Activity User E-Sign Co-Sign Detail Recorded Client Recorded Date Recorded By Document 12/28/20 09:54 MW [id number] 12/28/20 10:08 MW Document 01/04/21 11:09 PL [id number] 01/04/21 11:19 PL Document 01/11/21 08:41 BMF [id number] 01/11/21 08:47 BMF Document 01/18/21 09:11 KR [id number] 01/18/21 09:15 KR 12/28/20 01/04/21 01/11/21 09:54 11:09 08:41 Wound Center Nurse 1 #4 Left Calf -Combined with other wound No No No -Current Size (cm) - Length 0.7 0.5 1 -Current Size (cm) - Width 0.5 0.5 0.7 -Current Size (cm) - Depth 0.1 0.1 0.2 -Total Square Cm 0.35 0.25 0.7 -Photo Taken No No No -Epithelialization None Present None Present None Present -Tunneling No No No -Undermining/Tunneling No No No -Circular Undermining No No No -Exudate Amt None Present Medium Medium -Exudate Type Serosanguineous Serosanguineous -Wound Margin Flat & Intact Distinct, Outline Attached -Granulation Amt None Present (0 None Present (0 Small (1-33%) %) %) -Granulation Quality N/A Red -Slough/Fibrin Yes Yes Yes -Necrosis Amt Large (67-100%) Large (67-100%) Large (67-100%) -Necrotic Tissue Type Adherent Slough Adherent Slough Adherent Slough -Structure Exposed N/A -Texture (Susie-wound Skin Appearance) Assessed, No Abnormality Assessed, Localized Edema Scarring -Moisture (Susie-wound Skin Appearance) Assessed,Dry/ No Abnormality Assessed,Dry/ Scaly Scaly -Color (Susie-wound Skin Appearance) No Abnormality, Assessed Assessed -Temperature (Susie-wound Skin No Abnormality No Abnormality Appearance) (Pt Warm) (Pt Warm) -Tenderness on Palpation (Susie-wound Yes No No Skin Appearance) -Ulcer Cleansing Rinsed/ Rinsed/ Rinsed/ Irrigated with Irrigated with Irrigated with Saline Saline Saline -Foul Odor after Cleansing No No No -Anesthetic Used 4% Lidocaine 5% Lidocaine Solution Gel #3 Right Calf -Combined with other wound No No -Current Size (cm) - Length 2.8 2.5 2 -Current Size (cm) - Width 2.0 1.0 0.9 -Current Size (cm) - Depth 0.2 0.3 0.2 -Total Square Cm 5.60 2.50 1.8 -Photo Taken No No No -Epithelialization None Present None Present -Tunneling No No -Undermining/Tunneling No No -Circular Undermining No No -Exudate Amt Medium Medium Medium -Exudate Type Serosanguineous Serosanguineous Serosanguineous -Wound Margin Distinct, Distinct, Outline Outline Attached Attached -Granulation Amt Small (1-33%) None Present (0 Medium (34-66%) %) -Granulation Quality [place] Red -Slough/Fibrin Yes Yes Yes -Necrosis Amt Large (67-100%) None Present (0 Medium (34-66%) %) -Necrotic Tissue Type Adherent Slough Adherent Slough Adherent Slough -Structure Exposed N/A -Texture (Susie-wound Skin Appearance) Assessed, No Abnormality Assessed, Localized Edema Scarring -Moisture (Susie-wound Skin Appearance) Assessed,Dry/ No Abnormality Assessed Scaly -Color (Susie-wound Skin Appearance) Assessed, Assessed Hemosiderin Staining -Temperature (Susie-wound Skin No Abnormality No Abnormality No Abnormality Appearance) (Pt Warm) (Pt Warm) (Pt Warm) -Tenderness on Palpation (Susie-wound No No Skin Appearance) -Ulcer Cleansing Rinsed/ Rinsed/ Rinsed/ Irrigated with Irrigated with Irrigated with Saline Saline Saline -Foul Odor after Cleansing No No No -Anesthetic Used 4% Lidocaine 5% Lidocaine 5% Lidocaine Solution Gel Gel #2 Left Ankle -Combined with other wound No No -Current Size (cm) - Length 0.6 0.5 1 -Current Size (cm) - Width 1.0 1.5 0.7 -Current Size (cm) - Depth 0.5 0.3 0.2 -Total Square Cm 0.60 0.75 0.7 -Photo Taken No No No -Epithelialization None Present None Present None Present -Tunneling No No -Undermining/Tunneling No No -Circular Undermining No No -Exudate Amt Small Medium Medium -Exudate Type Serosanguineous Serosanguineous Serosanguineous -Wound Margin Distinct, Thickened Outline Attached -Granulation Amt Small (1-33%) Medium (34-66%) Large (67-100%) -Granulation Quality [place] Red -Slough/Fibrin Yes Yes -Necrosis Amt Large (67-100%) Medium (34-66%) Small (1-33%) -Necrotic Tissue Type Adherent Slough Adherent Slough Adherent Slough -Structure Exposed N/A -Texture (Susie-wound Skin Appearance) Assessed, Assessed, Localized Edema Scarring -Moisture (Susie-wound Skin Appearance) Assessed,Dry/ Assessed,Dry/ Scaly Scaly -Color (Susie-wound Skin Appearance) Assessed, Assessed Hemosiderin Staining -Temperature (Susie-wound Skin No Abnormality No Abnormality Appearance) (Pt Warm) (Pt Warm) -Tenderness on Palpation (Susie-wound No No Skin Appearance) -Ulcer Cleansing Rinsed/ Rinsed/ Irrigated with Irrigated with Saline Saline -Foul Odor after Cleansing No No -Anesthetic Used 4% Lidocaine 5% Lidocaine Solution Gel #1 Right Ankle -Combined with other wound No -Current Size (cm) - Length 0.1 -Current Size (cm) - Width 1.0 -Current Size (cm) - Depth 0.1 -Total Square Cm 0.10 -Photo Taken No -Epithelialization None Present -Undermining/Tunneling No -Circular Undermining No -Exudate Amt Small -Exudate Type Serous -Wound Margin Distinct, Outline Attached -Granulation Amt Small (1-33%) -Granulation Quality [place] -Slough/Fibrin Yes -Necrosis Amt Medium (34-66%) -Necrotic Tissue Type Adherent Slough -Structure Exposed N/A -Texture (Susie-wound Skin Appearance) Assessed, Localized Edema -Moisture (Susie-wound Skin Appearance) Assessed,Dry/ Scaly -Color (Susie-wound Skin Appearance) Assessed, Hemosiderin Staining -Temperature (Susie-wound Skin No Abnormality Appearance) (Pt Warm) -Tenderness on Palpation (Susie-wound No Skin Appearance) -Ulcer Cleansing Rinsed/ Irrigated with Saline -Foul Odor after Cleansing No -Anesthetic Used 4% Lidocaine Solution Lower Limb Edema Present Yes Yes Right Calf (cm) 36.0 36.7 Right Ankle (cm) 23 Point of Measurement (cm from the medial 22.2 instep) Left Calf (cm) 35.5 35 Left Ankle (cm) 22.5 23.1 01/18/21 09:11 Wound Center Nurse 1 #4 Left Calf -Combined with other wound -Current Size (cm) - Length 1 -Current Size (cm) - Width 1.1 -Current Size (cm) - Depth 0.2 -Total Square Cm 1.1 -Photo Taken -Epithelialization -Tunneling -Undermining/Tunneling -Circular Undermining -Exudate Amt Small -Exudate Type Serosanguineous -Wound Margin Distinct, Outline Attached -Granulation Amt Small (1-33%) -Granulation Quality Red -Slough/Fibrin -Necrosis Amt Small (1-33%) -Necrotic Tissue Type Adherent Slough -Structure Exposed -Texture (Susie-wound Skin Appearance) Assessed, Scarring -Moisture (Susie-wound Skin Appearance) No Abnormality, Assessed -Color (Susie-wound Skin Appearance) No Abnormality, Assessed -Temperature (Susie-wound Skin No Abnormality Appearance) (Pt Warm) -Tenderness on Palpation (Susie-wound No Skin Appearance) -Ulcer Cleansing Rinsed/ Irrigated with Saline -Foul Odor after Cleansing No -Anesthetic Used 5% Lidocaine Gel #3 Right Calf -Combined with other wound -Current Size (cm) - Length 2.5 -Current Size (cm) - Width 1 -Current Size (cm) - Depth 0.3 -Total Square Cm 2.5 -Photo Taken -Epithelialization -Tunneling -Undermining/Tunneling -Circular Undermining -Exudate Amt Small -Exudate Type Serosanguineous -Wound Margin Distinct, Outline Attached -Granulation Amt Small (1-33%) -Granulation Quality Red -Slough/Fibrin -Necrosis Amt Small (1-33%) -Necrotic Tissue Type Adherent Slough -Structure Exposed -Texture (Susie-wound Skin Appearance) Assessed -Moisture (Susie-wound Skin Appearance) No Abnormality, Assessed -Color (Susie-wound Skin Appearance) No Abnormality, Assessed -Temperature (Susie-wound Skin No Abnormality Appearance) (Pt Warm) -Tenderness on Palpation (Susie-wound No Skin Appearance) -Ulcer Cleansing Rinsed/ Irrigated with Saline -Foul Odor after Cleansing No -Anesthetic Used 5% Lidocaine Gel #2 Left Ankle -Combined with other wound -Current Size (cm) - Length 0.2 -Current Size (cm) - Width 0.8 -Current Size (cm) - Depth 0.6 -Total Square Cm 0.16 -Photo Taken -Epithelialization -Tunneling -Undermining/Tunneling -Circular Undermining -Exudate Amt Small -Exudate Type Serosanguineous -Wound Margin Distinct, Outline Attached -Granulation Amt Small (1-33%) -Granulation Quality Red -Slough/Fibrin -Necrosis Amt Small (1-33%) -Necrotic Tissue Type Adherent Slough -Structure Exposed -Texture (Susie-wound Skin Appearance) Assessed, Scarring -Moisture (Susie-wound Skin Appearance) No Abnormality, Assessed -Color (Susie-wound Skin Appearance) No Abnormality, Assessed -Temperature (Susie-wound Skin No Abnormality Appearance) (Pt Warm) -Tenderness on Palpation (Susie-wound No Skin Appearance) -Ulcer Cleansing Rinsed/ Irrigated with Saline -Foul Odor after Cleansing No -Anesthetic Used 5% Lidocaine Gel #1 Right Ankle -Combined with other wound -Current Size (cm) - Length -Current Size (cm) - Width -Current Size (cm) - Depth -Total Square Cm -Photo Taken -Epithelialization -Undermining/Tunneling -Circular Undermining -Exudate Amt -Exudate Type -Wound Margin -Granulation Amt -Granulation Quality -Slough/Fibrin -Necrosis Amt -Necrotic Tissue Type -Structure Exposed -Texture (Susie-wound Skin Appearance) -Moisture (Susie-wound Skin Appearance) -Color (Susie-wound Skin Appearance) -Temperature (Susie-wound Skin Appearance) -Tenderness on Palpation (Susie-wound Skin Appearance) -Ulcer Cleansing -Foul Odor after Cleansing -Anesthetic Used Lower Limb Edema Present Right Calf (cm) 34.7 Right Ankle (cm) 22.1 Point of Measurement (cm from the medial instep) Left Calf (cm) 35 Left Ankle (cm) 23.2 WC - Nurse 2 - General Ulcer CM Notes Start: 12/28/20 09:51 Freq: Status: Active Protocol: Activity Type Activity Date Activity User E-Sign Co-Sign Detail Recorded Client Recorded Date Recorded By Document 12/28/20 12:52 PL [id number] 12/28/20 12:56 PL Document 01/04/21 14:30 PL [id number] 01/04/21 14:34 PL Document 01/11/21 13:22 PL [id number] 01/11/21 13:28 PL 12/28/20 01/04/21 01/11/21 12:52 14:30 13:22 Wound Center Nurse 2 #4 Left Calf -Time 10:20 11:38 08:45 -Correct Patient Yes Yes Yes -Correct Side, Site, Position Yes Yes Yes -Correct Procedure Yes Yes Yes -Procedure Performed Yes Yes Yes -Type of Procedure Debridement Debridement Debridement -Clinical Debridement Subcutaneous Subcutaneous Subcutaneous -Tissue Removed Subcutaneous Subcutaneous Subcutaneous -Post Debridement (cm) - Length 0.7 0.5 1.0 -Post Debridement (cm) - Width 0.5 0.5 0.7 -Post Debridement (cm) - Depth 0.1 0.1 0.2 -Total Square (Post) (cm) 0.35 0.25 0.70 -Area of Debridement (cm) - Length 0.7 0.5 1.0 -Area of Debridement (cm) - Width 0.5 0.5 0.7 -Total Square (Area) (cm) 0.35 0.25 0.70 -Tunneling No No No -Undermining/Tunneling No No No -Circular Undermining No No No -Wound/Ulcer Outcome Not Healed Not Healed Not Healed -Ulcer Cleansing Rinsed/ Rinsed/ Rinsed/ Irrigated with Irrigated with Irrigated with Saline Saline Saline -Foul Odor after Cleansing No No No -Bioengineered Tissue No No No -Bleeding Controlled with Pressure -Treatment Response Procedure Tolerated Well -Debridement - Subq, 1st 20sq cm Yes Yes No #3 Right Calf -Time 10:20 11:38 08:50 -Correct Patient Yes Yes Yes -Correct Side, Site, Position Yes Yes Yes -Correct Procedure Yes Yes Yes -Procedure Performed Yes Yes Yes -Type of Procedure Debridement Debridement Debridement -Clinical Debridement Subcutaneous Subcutaneous Subcutaneous -Tissue Removed Subcutaneous Subcutaneous Subcutaneous -Post Debridement (cm) - Length 2.8 2.5 2.0 -Post Debridement (cm) - Width 2.0 1.0 0.9 -Post Debridement (cm) - Depth 0.2 0.3 0.2 -Total Square (Post) (cm) 5.60 2.50 1.80 -Area of Debridement (cm) - Length 2.8 2.5 2.0 -Area of Debridement (cm) - Width 2.0 1.0 0.9 -Total Square (Area) (cm) 5.60 2.50 1.80 -Tunneling No No No -Undermining/Tunneling No No No -Circular Undermining No No No -Wound/Ulcer Outcome Not Healed Not Healed Not Healed -Ulcer Cleansing Rinsed/ Rinsed/ Rinsed/ Irrigated with Irrigated with Irrigated with Saline Saline Saline -Foul Odor after Cleansing No No No -Bioengineered Tissue No No No -Bleeding Controlled with Pressure Pressure -Treatment Response Procedure Procedure Tolerated Well Tolerated Well -Debridement - Subq, 1st 20sq cm No No No #2 Left Ankle -Time 10:20 11:38 08:50 -Correct Patient Yes Yes Yes -Correct Side, Site, Position Yes Yes Yes -Correct Procedure Yes Yes Yes -Procedure Performed Yes Yes Yes -Type of Procedure Debridement Debridement Debridement -Clinical Debridement Subcutaneous Subcutaneous Subcutaneous -Tissue Removed Subcutaneous Subcutaneous Subcutaneous -Post Debridement (cm) - Length 0.6 0.5 0.5 -Post Debridement (cm) - Width 1.0 1.5 1.2 -Post Debridement (cm) - Depth 0.5 0.3 0.3 -Total Square (Post) (cm) 0.60 0.75 0.60 -Area of Debridement (cm) - Length 0.6 0.5 0.5 -Area of Debridement (cm) - Width 1.0 1.3 1.2 -Total Square (Area) (cm) 0.60 0.65 0.60 -Tunneling No No No -Undermining/Tunneling No No No -Circular Undermining No No No -Wound/Ulcer Outcome Not Healed Not Healed Not Healed -Ulcer Cleansing Rinsed/ Rinsed/ Rinsed/ Irrigated with Irrigated with Irrigated with Saline Saline Saline -Foul Odor after Cleansing No No No -Bioengineered Tissue No No No -Bleeding Controlled with Pressure -Treatment Response Procedure Tolerated Well -Debridement - Subq, 1st 20sq cm No No Yes Pain Scale: 0-10 Numeric Is Patient Pain Free? Yes Yes Yes - Nurse 3 - General Ulcer D/C NN Start: 12/28/20 09:51 Freq: Status: Active Protocol: Activity Type Activity Date Activity User E-Sign Co-Sign Detail Recorded Client Recorded Date Recorded By Document 12/28/20 12:52 PL [id number] 12/28/20 12:56 PL Document 01/04/21 14:30 [id number] 01/04/21 14:34 PL Document 01/11/21 09:11 [facility] [id number] 01/11/21 09:12 [facility] 12/28/20 01/04/21 01/11/21 12:52 14:30 09:11 Pain Scale: 0-10 Numeric Is Patient Pain Free? Yes Yes Yes Wound Care Nurse 3 #4 Left Calf -Ulcer Cleansing Rinsed/ Rinsed/ Rinsed/ Irrigated with Irrigated with Irrigated with Saline Saline Saline -Foul Odor after Cleansing No No No -Primary Dressing Applied Other -Other Dressing Hydrogel Hydrogel hydrogel -Primary Dressing Covered/Secured with Dry Gauze & Dry Gauze & Dry Gauze & Roll Gauze, Roll Gauze, Roll Gauze, Secured with Secured with Secured with Tape Tape Tape #3 Right Calf -Ulcer Cleansing Rinsed/ Rinsed/ Irrigated with Irrigated with Saline Saline -Foul Odor after Cleansing No No -Primary Dressing Applied Other -Other Dressing Hydrogel Hydrogel hydrogel -Primary Dressing Covered/Secured with Dry Gauze & Dry Gauze & Dry Gauze & Roll Gauze, Roll Gauze, Roll Gauze, Secured with Secured with Secured with Tape Tape Tape #2 Left Ankle -Ulcer Cleansing Rinsed/ Rinsed/ Irrigated with Irrigated with Saline Saline -Foul Odor after Cleansing No No -Primary Dressing Applied Other -Other Dressing Hydrogel Hydrogel hydrogel -Primary Dressing Covered/Secured with Dry Gauze & Dry Gauze & Dry Gauze & Roll Gauze, Roll Gauze, Roll Gauze, Secured with Secured with Secured with Tape Tape Tape Bilateral -Tubular Bandage Double Layer -Size of Tubigrip Used Size F -Size F ($) 4 -Other applied own tubis WC - Visit Discharge Discharge Condition Stable Stable Stable Ambulatory Status Ambulatory Ambulatory Ambulatory Transportation Private Auto Private Auto Clinical Summary of Care Provided Yes Yes Wound debrided: Left posterior calf Laterality: Left Type of Debridement: Excisional debridement Anesthesia Used: 5% Lidocaine Gel Depth: Down to and including healthy tissue and in the subcutaneous layer Percentage of wound debrided: 100 Instrument Used: 5mm curette Tissue Removed: Bioburden and nonviable tissue Severity: Fat Layer Exposed Amount of bleeding with debridement: Mild Bleeding Controlled with: Compression and gauze Patient tolerated procedure: Patient tolerated procedure well Debridement Free Text: Swab cultures were obtained today for both aerobic and anaerobic bacteria growth. Additional Wound Wound debrided: Left posterior ankle Laterality: Left Type of Debridement: Excisional debridement Anesthesia Used: 5% Lidocaine Gel Depth: Down to and including healthy tissue and in the subcutaneous layer Percentage of wound debrided: 100 Instrument Used: 5mm curette Tissue Removed: Bioburden Severity: Fat Layer Exposed Amount of bleeding with debridement: Mild Bleeding Controlled with: Compression and gauze Patient tolerated procedure: Patient tolerated procedure well Additional Wound Wound debrided: Right posterior calf Laterality: Right Type of Debridement: Excisional debridement Anesthesia Used: 5% Lidocaine Gel Depth: Down to and including healthy tissue and in the subcutaneous layer Percentage of wound debrided: 100 Instrument Used: 5mm curette Tissue Removed: Bioburden and nonviable tissue Severity: Fat Layer Exposed Amount of bleeding with debridement: Mild Bleeding Controlled with: Compression and gauze Patient tolerated procedure: Patient tolerated procedure well Assessment/Plan Assessment/Plan (1) Bilateral leg ulcer: CODE(S): L97.919 - Non-pressure chronic ulcer of unspecified part of right lower leg with unspecified severity; L97.929 - Non-pressure chronic ulcer of unspecified part of left lower leg with unspecified severity QUALIFIERS: Non-pressure ulcer stage: with fat layer exposed Qualified Code(s): L97.912 - Non-pressure chronic ulcer of unspecified part of right lower leg with fat layer exposed; L97.922 - Non-pressure chronic ulcer of unspecified part of left lower leg with fat layer exposed (2) Leg ulcer: CODE(S): L97.909 - Non-pressure chronic ulcer of unspecified part of unspecified lower leg with unspecified severity QUALIFIERS: Laterality: unspecified laterality Non-pressure ulcer stage: with fat layer exposed Qualified Code(s): L97.902 - Non-pressure chronic ulcer of unspecified part of unspecified lower leg with fat layer exposed (3) Malnutrition of mild degree: CODE(S): E44.1 - Mild protein-calorie malnutrition (4) Tricuspid valve regurgitation: CODE(S): I07.1 - Rheumatic tricuspid insufficiency (5) CHF (congestive heart failure): CODE(S): I50.9 - Heart failure, unspecified (6) Chronic kidney disease, stage III (moderate): CODE(S): N18.30 - Chronic kidney disease, stage 3 unspecified (7) Hyperlipidemia: CODE(S): E78.5 - Hyperlipidemia, unspecified (8) History of tobacco use disorder: CODE(S): Z87.891 - Personal history of nicotine dependence (9) Pulmonary hypertension: CODE(S): I27.20 - Pulmonary hypertension, unspecified (10) BECKIE (obstructive sleep apnea): CODE(S): G47.33 - Obstructive sleep apnea (adult) (pediatric) (11) History of stroke: CODE(S): Z86.73 - Personal history of transient ischemic attack (TIA), and cerebral infarction without residual deficits (12) History of alcohol abuse: CODE(S): F10.11 - Alcohol abuse, in remission (13) Afib: CODE(S): I48.91 - Unspecified atrial fibrillation (14) BPH (benign prostatic hyperplasia): (15) HTN (hypertension): CODE(S): I10 - Essential (primary) hypertension (16) DM2 (diabetes mellitus, type 2): CODE(S): E11.9 - Type 2 diabetes mellitus without complications (17) Dyslipidemia: CODE(S): E78.5 - Hyperlipidemia, unspecified PLAN: This is an 85-year-old male who presented with ulcerations in both lower extremities. These were of several months duration, and appear to have developed while the patient's lower extremities were extremely swollen and edematous as result of congestive heart failure. The swelling and edema has now resolved as a result of aggressive medical therapy. The wounds persist at this time. We are to continue conservative treatment measures, which have been reviewed thoroughly with the patient and his , who is at the bedside. The patient is to continue sleeping flat at night. He is to elevate his legs to heart level even during daytime hours, as much as possible. Prolonged idle sitting has been discouraged. Activity has been encouraged. We are to continue compression to the lower extremities by means of Tubigrips, which will be doubled. A noninvasive lower extremity arterial study reveals normal arterial flow at ankle level bilaterally. 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 We are to continue the use of collagenase Santyl, which will be applied topically to the patient's open wounds on a daily basis. The patient and his have been instructed in the appropriate means of application. The patient has been advised to enhance his nutritional intake to enhance the healing process. Optimization of the patient's glycemic status has also been recommended, and the patient is collaborating with his primary care physician, Dr. Loyd, in this regard. The patient has undergone laboratory studies recently at the [facility], and results will be sought. However, the patient's primary care physician, Dr. Loyd, continues to monitor the patient from metabolic standpoint on an ongoing basis. A culture of the patient's left posterior calf ulceration has been obtained for both aerobic and anaerobic bacterial growth. The results will be awaited. Antibiotic administration will be tailored to the results of the cultures. The patient is to return in 1 week for reassessment. Total time: 28 minutes.
== END 2021-01-22 23:59 ==
LOC: WC 09:00
PROVIDERS: PCP Internal Medicine; Referring Provider Internal Medicine; Visit Provider Surgery
DX: E11.621 Type 2 diabetes mellitus with foot ulcer (principal); L97.422 Non-pressure chronic ulcer of left heel and midfoot with fat layer exposed; E11.622 Type 2 diabetes mellitus with other skin ulcer; L97.222 Non-pressure chronic ulcer of left calf with fat layer exposed; L97.212 Non-pressure chronic ulcer of right calf with fat layer exposed; I13.0 Hypertensive heart and chronic kidney disease with heart failure and stage 1 through stage 4 chronic kidney disease, or unspecified chronic kidney disease; I50.9 Heart failure, unspecified; E11.22 Type 2 diabetes mellitus with diabetic chronic kidney disease; N18.30 Chronic kidney disease, stage 3 unspecified; I27.20 Pulmonary hypertension, unspecified; I48.91 Unspecified atrial fibrillation; R60.0 Localized edema; E44.1 Mild protein-calorie malnutrition; E78.5 Hyperlipidemia, unspecified; G47.33 Obstructive sleep apnea (adult) (pediatric); N40.0 Benign prostatic hyperplasia without lower urinary tract symptoms; F17.200 Nicotine dependence, unspecified, uncomplicated; F10.11 Alcohol abuse, in remission; E66.9 Obesity, unspecified; Z68.30 Body mass index [BMI] 30.0-30.9, adult; Z79.01 Long term (current) use of anticoagulants; Z79.84 Long term (current) use of oral hypoglycemic drugs; Z79.82 Long term (current) use of aspirin; Z79.899 Other long term (current) drug therapy; Z86.73 Personal history of transient ischemic attack (TIA), and cerebral infarction without residual deficits
CPT/HCPCS: 11042; 87070; 87075; 87077; 87186; 87205; 93923

== ENCOUNTER → 2021-01-28 | Outpatient (CLI) | payer MEDICARE, OTHER, SELFPAY ==
[2021-01-25 09:51] VITALS: BMI 30.3
[2021-01-28 12:04] LABS: Prothrombin Time (Protime)PT. 30.3 SECONDS (11.7-14.9)
== END | disposition home or self-care (01) ==
LOC: LABSPEC 11:44
PROVIDERS: PCP Internal Medicine; Visit Provider Internal Medicine
DX: I48.20 Chronic atrial fibrillation, unspecified (principal); Z86.73 Personal history of transient ischemic attack (TIA), and cerebral infarction without residual deficits
CPT/HCPCS: 85610

== ENCOUNTER 2021-02-15 09:45 | Outpatient (RCR) | payer MEDICARE, OTHER, SELFPAY ==
[2021-01-23 00:33] VITALS: BP 139/63; PULSE 103; RESP 16; TEMP 36.1
[2021-01-25 09:51] VITALS: BP 111/55; PULSE 73; TEMP 35.8; BMI 30.3
--- NOTE | 2021-01-25 10:42 | PCM.WC.HP ---
History of Present Illness Date of Service: 01/25/21 Chief Complaint: Bilateral leg ulcerations History of Wound: This is an 85-year-old male who presented with ulcerations on both lower extremities. The ulcerations occurred approximately 2 months prior to presentation. They are thought to have resulted from severe swelling and edema in both lower extremities which occurred as a result of exacerbation of congestive heart failure. In fact, the patient was hospitalized for several days at [facility] from October 31, 2020, to November 02, 2020, in treatment for congestive heart failure. As result of medical therapy, the patient lost over 20 pounds, and a diuresis was effected. As result, the swelling and edema in the patient's lower extremities resolved, though the resulting ulcerations have persisted. The patient and his had been applying bacitracin topically. He generally sleeps on a flat surface at night. However, he is not very active during daytime hours, often falling asleep in a semi-upright position during the day. The patient has multiple pre-existing medical problems, which are listed below. Recent laboratory results have been reviewed, and revealed the presence of chronic kidney disease, with elevated BUN and creatinine, and diminished protein and serum albumin levels. [facility] Medical History Atrial fibrillation Bilateral leg ulcer CHF (congestive heart failure) CHF exacerbation Chronic kidney disease, stage III (moderate) Congestive heart failure (CHF) Diabetes History of alcohol abuse History of alcohol use History of CVA (cerebrovascular accident) History of stroke History of tobacco use disorder Hyperlipemia Hyperlipidemia Hypertension Leg ulcer Macular degeneration Malnutrition of mild degree BECKIE (obstructive sleep apnea) Pulmonary hypertension Smoker Tricuspid valve regurgitation Home Medications PreserVision AREDS-2 1 ea PO DAILY 12/18/13 [History Last Taken Unknown] aspirin 81 mg PO DAILY@0800 12/18/13 [History Last Taken Unknown] atorvastatin 20 mg PO QHS 12/18/13 [History Last Taken Unknown] glimepiride 2 mg PO DINNER 12/18/13 [History Last Taken Unknown] losartan 150 mg PO DAILY 12/18/13 [History Last Taken Unknown] metformin 1,000 mg PO BIDCM 12/18/13 [History Last Taken Unknown] doxazosin [Cardura] 8 mg PO QHS 10/31/20 [History Last Taken Unknown] metoprolol tartrate 50 mg PO BID 10/31/20 [History Last Taken Unknown] verapamil 180 mg PO BID 10/31/20 [History Last Taken Unknown] warfarin 2.5 mg PO MO 10/31/20 [History Last Taken Unknown] warfarin 5 mg PO SUTUWETHFRSA 10/31/20 [History Last Taken Unknown] furosemide [Lasix] 40 mg PO BID #60 tab 11/02/20 [Rx Last Taken Unknown] Allergy/AdvReac Type Severity Reaction Status Date / Time atenolol Allergy Other Verified 10/31/20 12:21 Social History household members: spouse Smoking Status: Current every day smoker substance use type: does not use Vital Signs Vital Signs Vital Signs: 01/25/21 09:51 Temperature 96.5 F L Temperature Source Temporal Pulse Rate 73 Blood Pressure 111/55 L Blood Pressure Mean 73 Blood Pressure Source Monitor Weight Body Mass Index (BMI) 30.3 Physical Exam Const alert, oriented x3, no apparent distress and well nourished General Appearance: cooperative, comfortable and well developed Orientation / Consciousness: awake, oriented to person, oriented to place and oriented to time HEENT normocephalic and head/scalp atraumatic Head and Scalp: normal to inspection, normocephalic and atraumatic External Ear: external ears normal Eyes PERRL and EOMs intact bilaterally General Eye: normal appearance of both eyes Resp normal respiratory effort, normal air movement, no retractions and no use of accessory muscles Effort and Inspection: able to speak in complete sentences Extremity no clubbing, cyanosis or edema and no calf tenderness General Extremity: Negative for clubbing or cyanosis Skin Wound Narrative: Ulcerations persist on the left posterior calf, left posterior ankle, and the right posterior calf. They appear slightly smaller in size, though not significantly changed in appearance. Dimensions are documented elsewhere. There is a moderate amount of bioburden associated with each of the 3 ulcerations. Neuro oriented x3, CN's II-XII intact bilaterally and moves all extremities Psych mental status grossly normal Appearance: grossly normal, appropriate and well kempt Attitude: calm Activity / Motor Behavior: appropriate eye contact Speech: normal speech Mood & Affect: euthymic mood Thought Process: normal thought process Thought Content: normal thought content Attention / Concentration: attention grossly intact Debridement Note Debridement Note Post-Debridement Measurements and Additional Note: Post-Debridement Measurements/Treatment ИВАН - Nurse 1 - General Ulcer Assessment Start: 01/25/21 09:51 Freq: Status: Active Protocol: MATTEO Activity Type Activity Date Activity User E-Sign Co-Sign Detail Recorded Client Recorded Date Recorded By Document 01/25/21 09:51 JESSICA [id number] 01/25/21 10:15 JESSICA 01/25/21 09:51 WC - Today's Visit Information Type of service Follow-up Visit (Physician/FISCAL CLERK ) Arrival Mode Ambulatory Patient Identification Verified (Name & Yes ) Height and Weight Body Mass Index (BMI) 30.3 BMI Classification Obese Vital Signs Temperature (97.8 F-99.1 F) 96.5 F L Temperature Source Temporal Pulse Rate (60-100) 73 Pulse Location Monitor Blood Pressure (90/60-120/80) 111/55 L Blood Pressure Mean 73 Source Monitor History Since Last Visit- (Skip if this is Patient's initial visit) Have you changed medications since your No last visit? Any new allergies or adverse reactions No Had a fall/change in ADL's that may No increase risk of falls Signs or symptoms of abuse and/or No neglect since last visit Have you been in the hospital since your No last visit? Has dressing in place as prescribed Yes Has compression in place as prescribed Yes Has offloadiing in place as prescribed No Experienced any changes in pain level or No management Left Footwear Regular Shoe Right Footwear Regular Shoe ИВАН - Nurse 1 - General Ulcer Measurement Start: 01/25/21 09:51 Freq: Status: Active Protocol: Activity Type Activity Date Activity User E-Sign Co-Sign Detail Recorded Client Recorded Date Recorded By Document 01/25/21 09:51 JESSICA [id number] 01/25/21 10:15 JESSICA 01/25/21 09:51 Wound Center Nurse 1 #3 Right Calf -Combined with other wound No -Current Size (cm) - Length 1.3 -Current Size (cm) - Width 0.6 -Current Size (cm) - Depth 0.3 -Total Square Cm 0.78 -Photo Taken No -Epithelialization Small 1-33% -Tunneling No -Undermining/Tunneling No -Circular Undermining No -Exudate Type Serosanguineous -Wound Margin Distinct, Outline Attached -Granulation Amt Medium (34-66%) -Necrosis Amt None Present (0 %) -Texture (Susie-wound Skin Appearance) No Abnormality, Assessed -Moisture (Susie-wound Skin Appearance) No Abnormality, Assessed -Color (Susie-wound Skin Appearance) No Abnormality -Temperature (Susie-wound Skin No Abnormality Appearance) (Pt Warm) -Tenderness on Palpation (Susie-wound No Skin Appearance) -Ulcer Cleansing Rinsed/ Irrigated with Saline -Foul Odor after Cleansing No -Anesthetic Used 5% Lidocaine Gel #2 Left Ankle -Combined with other wound No -Current Size (cm) - Length 0.8 -Current Size (cm) - Width 1.6 -Current Size (cm) - Depth 0.4 -Total Square Cm 1.28 -Photo Taken No -Epithelialization Medium 34-66% -Tunneling No -Undermining/Tunneling No -Circular Undermining No -Change in Wound Grade/Stage No -Exudate Amt Small -Wound Margin Distinct, Outline Attached -Granulation Amt Medium (34-66%) -Granulation Quality Red -Slough/Fibrin Yes -Necrosis Amt Small (1-33%) -Texture (Susie-wound Skin Appearance) No Abnormality, Assessed -Moisture (Susie-wound Skin Appearance) No Abnormality, Assessed -Color (Susie-wound Skin Appearance) No Abnormality, Assessed -Temperature (Susie-wound Skin No Abnormality Appearance) (Pt Warm) -Tenderness on Palpation (Susie-wound No Skin Appearance) -Ulcer Cleansing Rinsed/ Irrigated with Saline -Foul Odor after Cleansing No -Anesthetic Used 5% Lidocaine Gel Point of measurement (cm from the medial 35.5 instep) Right Ankle (cm) 23 Left Calf (cm) 35 Left Ankle (cm) 22 - Nurse 3 - General Ulcer D/C NN Start: 01/25/21 09:51 Freq: Status: Active Protocol: Activity Type Activity Date Activity User E-Sign Co-Sign Detail Recorded Client Recorded Date Recorded By Document 01/25/21 10:39 MARS [id number] 01/25/21 10:40 MARS 01/25/21 10:39 Wound Care Nurse 3 #4 Left Calf -Primary Dressing Covered/Secured with Dry Gauze, Secured with Tape #3 Right Calf -Primary Dressing Covered/Secured with Dry Gauze, Secured with Tape #2 Left Ankle -Primary Dressing Covered/Secured with Dry Gauze, Secured with Tape Pain Scale: 0-10 Numeric Is Patient Pain Free? Yes WC - Visit Discharge Discharge Condition Stable Ambulatory Status Ambulatory Transportation Private Auto Accompanied by Wound debrided: Left posterior calf Laterality: Left Type of Debridement: Excisional debridement Anesthesia Used: 5% Lidocaine Gel Depth: Down to and including healthy tissue and in the subcutaneous layer Percentage of wound debrided: 100 Instrument Used: 5mm curette Tissue Removed: Bioburden Severity: Fat Layer Exposed Amount of bleeding with debridement: Mild Bleeding Controlled with: Compression and gauze Patient tolerated procedure: Patient tolerated procedure well Additional Wound Wound debrided: Left posterior ankle Laterality: Left Type of Debridement: Excisional debridement Anesthesia Used: 5% Lidocaine Gel Depth: Down to and including healthy tissue and in the subcutaneous layer Percentage of wound debrided: 100 Instrument Used: 5mm curette Tissue Removed: Bioburden Severity: Fat Layer Exposed Amount of bleeding with debridement: Mild Bleeding Controlled with: Compression and gauze Patient tolerated procedure: Patient tolerated procedure well Additional Wound Wound debrided: Right posterior calf Laterality: Right Type of Debridement: Excisional debridement Anesthesia Used: 5% Lidocaine Gel Depth: Down to and including healthy tissue and in the subcutaneous layer Percentage of wound debrided: 100 Instrument Used: 5mm curette Tissue Removed: Bioburden Severity: Fat Layer Exposed Amount of bleeding with debridement: Mild Bleeding Controlled with: Compression and gauze Patient tolerated procedure: Patient tolerated procedure well Assessment/Plan Assessment/Plan (1) Bilateral leg ulcer: CODE(S): L97.919 - Non-pressure chronic ulcer of unspecified part of right lower leg with unspecified severity; L97.929 - Non-pressure chronic ulcer of unspecified part of left lower leg with unspecified severity QUALIFIERS: Non-pressure ulcer stage: with fat layer exposed Qualified Code(s): L97.912 - Non-pressure chronic ulcer of unspecified part of right lower leg with fat layer exposed; L97.922 - Non-pressure chronic ulcer of unspecified part of left lower leg with fat layer exposed (2) Leg ulcer: CODE(S): L97.909 - Non-pressure chronic ulcer of unspecified part of unspecified lower leg with unspecified severity QUALIFIERS: Laterality: unspecified laterality Non-pressure ulcer stage: with fat layer exposed Qualified Code(s): L97.902 - Non-pressure chronic ulcer of unspecified part of unspecified lower leg with fat layer exposed (3) Tricuspid valve regurgitation: CODE(S): I07.1 - Rheumatic tricuspid insufficiency (4) CHF (congestive heart failure): CODE(S): I50.9 - Heart failure, unspecified (5) Chronic kidney disease, stage III (moderate): CODE(S): N18.30 - Chronic kidney disease, stage 3 unspecified (6) Hyperlipidemia: CODE(S): E78.5 - Hyperlipidemia, unspecified (7) History of tobacco use disorder: CODE(S): Z87.891 - Personal history of nicotine dependence (8) Pulmonary hypertension: CODE(S): I27.20 - Pulmonary hypertension, unspecified (9) BECKIE (obstructive sleep apnea): CODE(S): G47.33 - Obstructive sleep apnea (adult) (pediatric) (10) History of stroke: CODE(S): Z86.73 - Personal history of transient ischemic attack (TIA), and cerebral infarction without residual deficits (11) History of alcohol abuse: CODE(S): F10.11 - Alcohol abuse, in remission (12) Afib: CODE(S): I48.91 - Unspecified atrial fibrillation (13) BPH (benign prostatic hyperplasia): (14) HTN (hypertension): CODE(S): I10 - Essential (primary) hypertension (15) DM2 (diabetes mellitus, type 2): CODE(S): E11.9 - Type 2 diabetes mellitus without complications (16) Dyslipidemia: CODE(S): E78.5 - Hyperlipidemia, unspecified PLAN: This is an 85-year-old male who presented with ulcerations in both lower extremities. These were of several months duration, and appear to have developed while the patient's lower extremities were extremely swollen and edematous as result of congestive heart failure. The swelling and edema has now resolved as a result of aggressive medical therapy. The wounds persist at this time. We are to continue conservative treatment measures, which have been reviewed thoroughly with the patient and his , who is at the bedside. The patient is to continue sleeping flat at night. He is to elevate his legs to heart level even during daytime hours, as much as possible. Prolonged idle sitting has been discouraged. Activity has been encouraged. We are to continue compression to the lower extremities by means of Tubigrips, which will be doubled. A noninvasive lower extremity arterial study reveals normal arterial flow at ankle level bilaterally. 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 We are to continue the use of collagenase Santyl, which will be applied topically to the patient's open wounds on a daily basis. The patient and his have been instructed in the appropriate means of application. The patient has been advised to enhance his nutritional intake to enhance the healing process. Optimization of the patient's glycemic status has also been recommended, and the patient is collaborating with his primary care physician, Dr. Loyd, in this regard. The patient has undergone laboratory studies recently at the [facility], and results will be sought. However, the patient's primary care physician, Dr. Loyd, continues to monitor the patient from metabolic standpoint on an ongoing basis. A culture of the patient's left posterior calf ulceration has been obtained for both aerobic and anaerobic bacterial growth. The results demonstrate the growth of Klebsiella oxytoca, Corynebacterium amycolatum, and Actinomyces odontolyticus. Based upon the sensitivity profile, the patient has been placed on Augmentin 875 mg p.o. twice daily for 10 days. The patient is to return in 1 week for reassessment. Total time: 29 minutes.
[2021-02-01 09:13] VITALS: BP 116/59; PULSE 108; RESP 16; TEMP 36.3; BMI 30.3
--- NOTE | 2021-02-01 10:39 | PCM.WC.HP ---
History of Present Illness Date of Service: 02/01/21 Chief Complaint: Bilateral leg ulcerations History of Wound: This is an 85-year-old male who presented with ulcerations on both lower extremities. The ulcerations occurred approximately 2 months prior to presentation. They are thought to have resulted from severe swelling and edema in both lower extremities which occurred as a result of exacerbation of congestive heart failure. In fact, the patient was hospitalized for several days at [facility] from October 31, 2020, to November 02, 2020, in treatment for congestive heart failure. As result of medical therapy, the patient lost over 20 pounds, and a diuresis was effected. As result, the swelling and edema in the patient's lower extremities resolved, though the resulting ulcerations have persisted. The patient and his had been applying bacitracin topically. He generally sleeps on a flat surface at night. However, he is not very active during daytime hours, often falling asleep in a semi-upright position during the day. The patient has multiple pre-existing medical problems, which are listed below. Recent laboratory results have been reviewed, and revealed the presence of chronic kidney disease, with elevated BUN and creatinine, and diminished protein and serum albumin levels. [facility] Medical History Atrial fibrillation Bilateral leg ulcer CHF (congestive heart failure) CHF exacerbation Chronic kidney disease, stage III (moderate) Congestive heart failure (CHF) Diabetes History of alcohol abuse History of alcohol use History of CVA (cerebrovascular accident) History of stroke History of tobacco use disorder Hyperlipemia Hyperlipidemia Hypertension Leg ulcer Macular degeneration Malnutrition of mild degree BECKIE (obstructive sleep apnea) Pulmonary hypertension Smoker Tricuspid valve regurgitation Home Medications PreserVision AREDS-2 1 ea PO DAILY 12/18/13 [History Last Taken Unknown] aspirin 81 mg PO DAILY@0800 12/18/13 [History Last Taken Unknown] atorvastatin 20 mg PO QHS 12/18/13 [History Last Taken Unknown] glimepiride 2 mg PO DINNER 12/18/13 [History Last Taken Unknown] losartan 150 mg PO DAILY 12/18/13 [History Last Taken Unknown] metformin 1,000 mg PO BIDCM 12/18/13 [History Last Taken Unknown] doxazosin [Cardura] 8 mg PO QHS 10/31/20 [History Last Taken Unknown] metoprolol tartrate 50 mg PO BID 10/31/20 [History Last Taken Unknown] verapamil 180 mg PO BID 10/31/20 [History Last Taken Unknown] warfarin 2.5 mg PO MO 10/31/20 [History Last Taken Unknown] warfarin 5 mg PO SUTUWETHFRSA 10/31/20 [History Last Taken Unknown] furosemide [Lasix] 40 mg PO BID #60 tab 11/02/20 [Rx Last Taken Unknown] Allergy/AdvReac Type Severity Reaction Status Date / Time atenolol Allergy Other Verified 10/31/20 12:21 Social History household members: spouse Smoking Status: Current every day smoker substance use type: does not use Vital Signs Vital Signs Vital Signs: 02/01/21 09:13 Temperature 97.3 F L Temperature Source Temporal Pulse Rate 108 H Respiratory Rate 16 Blood Pressure 116/59 L Blood Pressure Mean 78 Blood Pressure Source Monitor Blood Pressure Position Sitting Blood Pressure Location Right Arm Oxygen Delivery Method Room Air Weight Body Mass Index (BMI) 30.3 Physical Exam Const alert, oriented x3, no apparent distress and well nourished General Appearance: cooperative, comfortable, well kempt and well developed Orientation / Consciousness: awake, oriented to person, oriented to place and oriented to time HEENT normocephalic and head/scalp atraumatic Head and Scalp: normal to inspection, normocephalic and atraumatic External Ear: external ears normal Eyes PERRL and EOMs intact bilaterally General Eye: normal appearance of both eyes Resp normal respiratory effort, normal air movement, no retractions and no use of accessory muscles Effort and Inspection: able to speak in complete sentences Extremity no calf tenderness Extremity Narrative: No significant swelling or edema are noted in the patient's lower extremities bilaterally. There are numerous scattered telangiectasias in both lower extremities. General Extremity: Negative for clubbing or cyanosis Skin Wound Narrative: The patient's ulcerations persist in both lower extremities. There is an ulceration on the right posterior calf. There are also ulceration on the left posterior calf and the left posterior ankle. The ulcerations in the left lower extremity are measuring smaller. Dimensions are documented elsewhere. There is no sign of infection or cellulitis. Erythema, previously noted, is now resolved. Neuro oriented x3, CN's II-XII intact bilaterally and moves all extremities Psych mental status grossly normal Appearance: grossly normal and appropriate Attitude: calm Activity / Motor Behavior: appropriate eye contact Speech: normal speech Mood & Affect: euthymic mood Thought Process: normal thought process Thought Content: normal thought content Attention / Concentration: attention grossly intact Debridement Note Debridement Note Post-Debridement Measurements and Additional Note: Post-Debridement Measurements/Treatment - Nurse 1 - General Ulcer Assessment Start: 01/25/21 09:51 Freq: Status: Active Protocol: MATTEO Activity Type Activity Date Activity User E-Sign Co-Sign Detail Recorded Client Recorded Date Recorded By Document 01/25/21 09:51 AK [id number] 01/25/21 10:15 AK Document 02/01/21 09:13 MW [id number] 02/01/21 09:29 MW 01/25/21 02/01/21 09:51 09:13 - Today's Visit Information Type of service Follow-up Visit Follow-up Visit (Physician/[employer] (Physician/[employer] ) ) Arrival Mode Ambulatory Ambulatory Transfer Assistance None Accompanied by Patient Identification Verified (Name & Yes Yes ) Patient Requires Transmission-Based No Precautions Finger Stick Blood Sugar(mg/dl) (if 165 indicated): Blood Sugar Stated by Patient Height and Weight Body Mass Index (BMI) 30.3 30.3 BMI Classification Obese Obese Vital Signs Temperature (97.8 F-99.1 F) 96.5 F L 97.3 F L Temperature Source Temporal Temporal Pulse Rate (60-100) 73 108 H Pulse Location Monitor Monitor Respiratory Rate (12-18) 16 Respiratory rate source Observation Oxygen Delivery Method Room Air Blood Pressure (90/60-120/80) 111/55 L 116/59 L Blood Pressure Mean 73 78 Source Monitor Monitor Position Sitting Blood Pressure Location Right Arm History Since Last Visit- (Skip if this is Patient's initial visit) Have you changed medications since your No No last visit? Any new allergies or adverse reactions No No Had a fall/change in ADL's that may No No increase risk of falls Signs or symptoms of abuse and/or No No neglect since last visit Have you been in the hospital since your No No last visit? Has dressing in place as prescribed Yes Yes Has compression in place as prescribed Yes Yes Has offloadiing in place as prescribed No N/A Experienced any changes in pain level or No No management Left Footwear Regular Shoe Regular Shoe Right Footwear Regular Shoe Regular Shoe Pain Scale: 0-10 Numeric Is Patient Pain Free? Yes WC - Nurse 1 - General Ulcer Measurement Start: 01/25/21 09:51 Freq: Status: Active Protocol: Activity Type Activity Date Activity User E-Sign Co-Sign Detail Recorded Client Recorded Date Recorded By Document 01/25/21 09:51 AK [id number] 01/25/21 10:15 AK Document 02/01/21 09:13 MW [id number] 02/01/21 09:29 MW 01/25/21 02/01/21 09:51 09:13 Wound Center Nurse 1 #4 Left Calf -Combined with other wound No -Current Size (cm) - Length 1.4 -Current Size (cm) - Width 1.5 -Current Size (cm) - Depth 0.2 -Total Square Cm 2.10 -Epithelialization None Present -Tunneling No -Undermining/Tunneling No -Circular Undermining No -Exudate Amt Medium -Exudate Type Serosanguineous -Wound Margin Thickened -Granulation Amt Small (1-33%) -Granulation Quality [place] -Slough/Fibrin Yes -Necrosis Amt Large (67-100%) -Necrotic Tissue Type Adherent Slough -Structure Exposed N/A -Texture (Susie-wound Skin Appearance) Assessed, Scarring -Moisture (Susie-wound Skin Appearance) Assessed -Color (Susie-wound Skin Appearance) Assessed, Hemosiderin Staining -Temperature (Susie-wound Skin No Abnormality Appearance) (Pt Warm) -Tenderness on Palpation (Susie-wound Yes Skin Appearance) -Ulcer Cleansing Rinsed/ Irrigated with Saline -Foul Odor after Cleansing No -Anesthetic Used 4% Lidocaine Solution #3 Right Calf -Combined with other wound No No -Current Size (cm) - Length 1.3 2.5 -Current Size (cm) - Width 0.6 1.0 -Current Size (cm) - Depth 0.3 0.3 -Total Square Cm 0.78 2.50 -Photo Taken No No -Epithelialization Small 1-33% None Present -Tunneling No -Undermining/Tunneling No No -Circular Undermining No No -Exudate Amt Medium -Exudate Type Serosanguineous Serosanguineous -Wound Margin Distinct, Thickened Outline Attached -Granulation Amt Medium (34-66%) Small (1-33%) -Granulation Quality [place] -Slough/Fibrin Yes -Necrosis Amt None Present (0 Large (67-100%) %) -Necrotic Tissue Type Adherent Slough -Structure Exposed N/A -Texture (Susie-wound Skin Appearance) No Abnormality, Assessed, Assessed Scarring -Moisture (Susie-wound Skin Appearance) No Abnormality, No Abnormality, Assessed Assessed -Color (Susie-wound Skin Appearance) No Abnormality Assessed, Hemosiderin Staining -Temperature (Susie-wound Skin No Abnormality No Abnormality Appearance) (Pt Warm) (Pt Warm) -Tenderness on Palpation (Susie-wound No No Skin Appearance) -Ulcer Cleansing Rinsed/ Rinsed/ Irrigated with Irrigated with Saline Saline -Foul Odor after Cleansing No No -Anesthetic Used 5% Lidocaine 4% Lidocaine Gel Solution #2 Left Ankle -Combined with other wound No No -Current Size (cm) - Length 0.8 0.6 -Current Size (cm) - Width 1.6 1.0 -Current Size (cm) - Depth 0.4 0.3 -Total Square Cm 1.28 0.60 -Photo Taken No No -Epithelialization Medium 34-66% None Present -Tunneling No No -Undermining/Tunneling No -Circular Undermining No No -Change in Wound Grade/Stage No -Exudate Amt Small Medium -Exudate Type Serosanguineous -Wound Margin Distinct, Thickened Outline Attached -Granulation Amt Medium (34-66%) Small (1-33%) -Granulation Quality [place] -Slough/Fibrin Yes Yes -Necrosis Amt Small (1-33%) Large (67-100%) -Necrotic Tissue Type Adherent Slough -Structure Exposed N/A -Texture (Susie-wound Skin Appearance) No Abnormality, Assessed, Assessed Scarring -Moisture (Susie-wound Skin Appearance) No Abnormality, No Abnormality, Assessed Assessed -Color (Susie-wound Skin Appearance) No Abnormality, Assessed, Assessed Hemosiderin Staining -Temperature (Susie-wound Skin No Abnormality No Abnormality Appearance) (Pt Warm) (Pt Warm) -Tenderness on Palpation (Susie-wound No Yes Skin Appearance) -Ulcer Cleansing Rinsed/ Rinsed/ Irrigated with Irrigated with Saline Saline -Foul Odor after Cleansing No No -Anesthetic Used 5% Lidocaine 4% Lidocaine Gel Solution Lower Limb Edema Present No Right Calf (cm) 34.5 Point of measurement (cm from the medial 35.5 instep) Right Ankle (cm) 23 22.2 Left Calf (cm) 35 34.5 Left Ankle (cm) 22 22.0 WC - Nurse 2 - General Ulcer CM Notes Start: 01/25/21 09:51 Freq: Status: Active Protocol: Activity Type Activity Date Activity User E-Sign Co-Sign Detail Recorded Client Recorded Date Recorded By Document 01/25/21 12:14 PL [id number] 01/25/21 12:21 PL 01/25/21 12:14 Wound Center Nurse 2 #3 Right Calf -Time 10:21 -Correct Patient Yes -Correct Side, Site, Position Yes -Correct Procedure Yes -Procedure Performed Yes -Type of Procedure Debridement -Clinical Debridement Subcutaneous -Tissue Removed Subcutaneous -Post Debridement (cm) - Length 1.3 -Post Debridement (cm) - Width 0.6 -Post Debridement (cm) - Depth 0.3 -Total Square (Post) (cm) 0.78 -Area of Debridement (cm) - Length 1.3 -Area of Debridement (cm) - Width 0.6 -Total Square (Area) (cm) 0.78 -Tunneling No -Undermining/Tunneling No -Circular Undermining No -Wound/Ulcer Outcome Not Healed -Ulcer Cleansing Rinsed/ Irrigated with Saline -Foul Odor after Cleansing No -Bioengineered Tissue No -Debridement - Subq, 1st 20sq cm Yes #2 Left Ankle -Time 10:21 -Correct Patient Yes -Correct Side, Site, Position Yes -Correct Procedure Yes -Procedure Performed Yes -Type of Procedure Debridement -Clinical Debridement Subcutaneous -Tissue Removed Subcutaneous -Post Debridement (cm) - Length 0.8 -Post Debridement (cm) - Width 1.6 -Post Debridement (cm) - Depth 0.4 -Total Square (Post) (cm) 1.28 -Area of Debridement (cm) - Length 0.8 -Area of Debridement (cm) - Width 1.6 -Total Square (Area) (cm) 1.28 -Tunneling No -Undermining/Tunneling No -Circular Undermining No -Wound/Ulcer Outcome Not Healed -Ulcer Cleansing Rinsed/ Irrigated with Saline -Foul Odor after Cleansing No -Bioengineered Tissue No -Debridement - Subq, 1st 20sq cm No WC - Nurse 3 - General Ulcer D/C NN Start: 01/25/21 09:51 Freq: Status: Active Protocol: Activity Type Activity Date Activity User E-Sign Co-Sign Detail Recorded Client Recorded Date Recorded By Document 01/25/21 10:39 MARS [id number] 01/25/21 10:40 KR Document 02/01/21 10:13 KR [id number] 02/01/21 10:14 KR 01/25/21 02/01/21 10:39 10:13 Wound Care Nurse 3 #4 Left Calf -Primary Dressing Applied Promogran -Primary Dressing Covered/Secured with Dry Gauze, Dry Gauze, Secured with Secured with Tape Tape -Promogran 1 #3 Right Calf -Primary Dressing Covered/Secured with Dry Gauze, Dry Gauze, Secured with Secured with Tape Tape #2 Left Ankle -Primary Dressing Covered/Secured with Dry Gauze, Dry Gauze, Secured with Secured with Tape Tape Pain Scale: 0-10 Numeric Is Patient Pain Free? Yes Yes WC - Visit Discharge Discharge Condition Stable Stable Ambulatory Status Ambulatory Ambulatory Transportation Private Auto Private Auto Accompanied by Wound debrided: Right posterior calf Laterality: Right Type of Debridement: Excisional debridement Anesthesia Used: 5% Lidocaine Gel Depth: Down to and including healthy tissue and in the subcutaneous layer Percentage of wound debrided: 100 Instrument Used: 3mm curette Tissue Removed: Bioburden Severity: Fat Layer Exposed Amount of bleeding with debridement: Mild Bleeding Controlled with: Compression and gauze Patient tolerated procedure: Patient tolerated procedure well Additional Wound Wound debrided: Left posterior calf Laterality: Left Type of Debridement: Excisional debridement Anesthesia Used: 5% Lidocaine Gel Depth: Down to and including healthy tissue and in the subcutaneous layer Percentage of wound debrided: 100 Instrument Used: 3mm curette Tissue Removed: Bioburden Severity: Fat Layer Exposed Amount of bleeding with debridement: Mild Bleeding Controlled with: Compression and gauze Patient tolerated procedure: Patient tolerated procedure well Additional Wound Wound debrided: Left posterior ankle Laterality: Left Type of Debridement: Excisional debridement Depth: Down to and including healthy tissue and in the subcutaneous layer Percentage of wound debrided: 100 Instrument Used: 3mm curette Tissue Removed: Bioburden Severity: Fat Layer Exposed Amount of bleeding with debridement: Mild Bleeding Controlled with: Compression and gauze Patient tolerated procedure: Patient tolerated procedure well Assessment/Plan Assessment/Plan (1) Bilateral leg ulcer: CODE(S): L97.919 - Non-pressure chronic ulcer of unspecified part of right lower leg with unspecified severity; L97.929 - Non-pressure chronic ulcer of unspecified part of left lower leg with unspecified severity QUALIFIERS: Non-pressure ulcer stage: with fat layer exposed Qualified Code(s): L97.912 - Non-pressure chronic ulcer of unspecified part of right lower leg with fat layer exposed; L97.922 - Non-pressure chronic ulcer of unspecified part of left lower leg with fat layer exposed (2) Leg ulcer: CODE(S): L97.909 - Non-pressure chronic ulcer of unspecified part of unspecified lower leg with unspecified severity QUALIFIERS: Laterality: unspecified laterality Non-pressure ulcer stage: with fat layer exposed Qualified Code(s): L97.902 - Non-pressure chronic ulcer of unspecified part of unspecified lower leg with fat layer exposed (3) Malnutrition of mild degree: CODE(S): E44.1 - Mild protein-calorie malnutrition (4) Tricuspid valve regurgitation: CODE(S): I07.1 - Rheumatic tricuspid insufficiency (5) CHF (congestive heart failure): CODE(S): I50.9 - Heart failure, unspecified (6) Chronic kidney disease, stage III (moderate): CODE(S): N18.30 - Chronic kidney disease, stage 3 unspecified (7) Hyperlipidemia: CODE(S): E78.5 - Hyperlipidemia, unspecified (8) History of tobacco use disorder: CODE(S): Z87.891 - Personal history of nicotine dependence (9) Pulmonary hypertension: CODE(S): I27.20 - Pulmonary hypertension, unspecified (10) BECKIE (obstructive sleep apnea): CODE(S): G47.33 - Obstructive sleep apnea (adult) (pediatric) (11) History of stroke: CODE(S): Z86.73 - Personal history of transient ischemic attack (TIA), and cerebral infarction without residual deficits (12) History of alcohol abuse: CODE(S): F10.11 - Alcohol abuse, in remission (13) Afib: CODE(S): I48.91 - Unspecified atrial fibrillation (14) BPH (benign prostatic hyperplasia): (15) HTN (hypertension): CODE(S): I10 - Essential (primary) hypertension (16) Dyslipidemia: CODE(S): E78.5 - Hyperlipidemia, unspecified PLAN: This is an 85-year-old male who presented with ulcerations in both lower extremities. These were of several months duration, and appear to have developed while the patient's lower extremities were extremely swollen and edematous as result of congestive heart failure. The swelling and edema has now resolved as a result of aggressive medical therapy. The wounds persist at this time. We are to continue conservative treatment measures, which have been reviewed thoroughly with the patient and his , who is at the bedside. The patient is to continue sleeping flat at night. He is to elevate his legs to heart level even during daytime hours, as much as possible. Prolonged idle sitting has been discouraged. Activity has been encouraged. We are to continue compression to the lower extremities by means of Tubigrips, which will be doubled. A noninvasive lower extremity arterial study reveals normal arterial flow at ankle level bilaterally. 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 We are to transition to the use of Promogran topically to each of the patient's ulcerations. This will be applied topically every other day, and the patient, and his , have been instructed in the appropriate means of application. The patient has been advised to enhance his nutritional intake to enhance the healing process. Optimization of the patient's glycemic status has also been recommended, and the patient is collaborating with his primary care physician, Dr. Loyd, in this regard. The patient has undergone laboratory studies recently at the [facility], and results will be sought. However, the patient's primary care physician, Dr. Loyd, continues to monitor the patient from metabolic standpoint on an ongoing basis. A culture of the patient's left posterior calf ulceration has been obtained for both aerobic and anaerobic bacterial growth. The results demonstrate the growth of Klebsiella oxytoca, Corynebacterium amycolatum, and Actinomyces odontolyticus. Based upon the sensitivity profile, the patient has been placed on Augmentin 875 mg p.o. twice daily for 10 days, which has now been completed. The patient is to return in 2 weeks for reassessment. Total time: 29 minutes.
[2021-02-15 09:57] VITALS: BMI 30.3
--- NOTE | 2021-02-15 12:25 | PCM.WC.HP ---
History of Present Illness Date of Service: 02/15/21 Chief Complaint: Bilateral leg ulcerations History of Wound: This is an 85-year-old male who presented with ulcerations on both lower extremities. The ulcerations occurred approximately 2 months prior to presentation. They are thought to have resulted from severe swelling and edema in both lower extremities which occurred as a result of exacerbation of congestive heart failure. In fact, the patient was hospitalized for several days at [facility] from October 31, 2020, to November 02, 2020, in treatment for congestive heart failure. As result of medical therapy, the patient lost over 20 pounds, and a diuresis was effected. As result, the swelling and edema in the patient's lower extremities resolved, though the resulting ulcerations have persisted. The patient and his had been applying bacitracin topically. He generally sleeps on a flat surface at night. However, he is not very active during daytime hours, often falling asleep in a semi-upright position during the day. The patient has multiple pre-existing medical problems, which are listed below. Recent laboratory results have been reviewed, and revealed the presence of chronic kidney disease, with elevated BUN and creatinine, and diminished protein and serum albumin levels. [facility] Medical History Atrial fibrillation Bilateral leg ulcer CHF (congestive heart failure) CHF exacerbation Chronic kidney disease, stage III (moderate) Congestive heart failure (CHF) Diabetes History of alcohol abuse History of alcohol use History of CVA (cerebrovascular accident) History of stroke History of tobacco use disorder Hyperlipemia Hyperlipidemia Hypertension Leg ulcer Macular degeneration Malnutrition of mild degree BECKIE (obstructive sleep apnea) Pulmonary hypertension Smoker Tricuspid valve regurgitation Home Medications PreserVision AREDS-2 1 ea PO DAILY 12/18/13 [History Last Taken Unknown] aspirin 81 mg PO DAILY@0800 12/18/13 [History Last Taken Unknown] atorvastatin 20 mg PO QHS 12/18/13 [History Last Taken Unknown] glimepiride 2 mg PO DINNER 12/18/13 [History Last Taken Unknown] losartan 150 mg PO DAILY 12/18/13 [History Last Taken Unknown] metformin 1,000 mg PO BIDCM 12/18/13 [History Last Taken Unknown] doxazosin [Cardura] 8 mg PO QHS 10/31/20 [History Last Taken Unknown] metoprolol tartrate 50 mg PO BID 10/31/20 [History Last Taken Unknown] verapamil 180 mg PO BID 10/31/20 [History Last Taken Unknown] warfarin 2.5 mg PO MO 10/31/20 [History Last Taken Unknown] warfarin 5 mg PO SUTUWETHFRSA 10/31/20 [History Last Taken Unknown] furosemide [Lasix] 40 mg PO BID #60 tab 11/02/20 [Rx Last Taken Unknown] Allergy/AdvReac Type Severity Reaction Status Date / Time atenolol Allergy Other Verified 10/31/20 12:21 Social History household members: spouse Smoking Status: Current every day smoker substance use type: does not use Vital Signs Vital Signs Vital Signs: 02/15/21 09:57 Temperature Source Temporal Blood Pressure Source Monitor Blood Pressure Position Semi-Fowlers Blood Pressure Location Right Arm Weight Body Mass Index (BMI) 30.3 Physical Exam Const alert, oriented x3, no apparent distress and well nourished General Appearance: cooperative, comfortable, well kempt and well developed Orientation / Consciousness: awake, oriented to person, oriented to place and oriented to time HEENT normocephalic and head/scalp atraumatic Head and Scalp: normal to inspection, normocephalic and atraumatic External Ear: external ears normal Eyes PERRL and EOMs intact bilaterally General Eye: normal appearance of both eyes Resp normal respiratory effort, normal air movement, no retractions and no use of accessory muscles Effort and Inspection: able to speak in complete sentences Extremity no clubbing, cyanosis or edema and no calf tenderness General Extremity: Negative for clubbing or cyanosis Skin Wound Narrative: Ulcers persist on the left posterior calf, left posterior ankle, and the right posterior calf. Of these ulcers, there is no sign of infection or cellulitis. Dimensions are documented elsewhere relative to each of the ulcerations. There is a moderate amount of bioburden with respect to each of the ulcerations. The ulcerations appear to be diminishing in size progressively. Neuro oriented x3, CN's II-XII intact bilaterally and moves all extremities Sensorium / Orientation: awake, alert, oriented to person, oriented to place and oriented to time Psych Appearance: grossly normal and appropriate Attitude: calm Activity / Motor Behavior: appropriate eye contact Speech: normal speech Mood & Affect: euthymic mood Thought Process: normal thought process Thought Content: normal thought content Attention / Concentration: attention grossly intact Debridement Note Debridement Note Post-Debridement Measurements and Additional Note: Post-Debridement Measurements/Treatment - Nurse 1 - General Ulcer Assessment Start: 01/25/21 09:51 Freq: Status: Active Protocol: ИВАН.LOWEXT Activity Type Activity Date Activity User E-Sign Co-Sign Detail Recorded Client Recorded Date Recorded By Document 01/25/21 09:51 AK [id number] 01/25/21 10:15 AK Document 02/01/21 09:13 MW [id number] 02/01/21 09:29 MW Document 02/15/21 09:57 KR [id number] 02/15/21 10:10 KR 01/25/21 02/01/21 02/15/21 09:51 09:13 09:57 - Today's Visit Information Type of service Follow-up Visit Follow-up Visit Follow-up Visit (Physician/BROADBAND ENGINEER (Physician/BROADBAND ENGINEER (Physician/BROADBAND ENGINEER ) ) ) Arrival Mode Ambulatory Ambulatory Ambulatory Transfer Assistance None Accompanied by Patient Identification Verified (Name & Yes Yes Yes ) Patient Requires Transmission-Based No Precautions Finger Stick Blood Sugar(mg/dl) (if 165 indicated): Blood Sugar Stated by Patient Height and Weight Body Mass Index (BMI) 30.3 30.3 30.3 BMI Classification Obese Obese Obese Vital Signs Temperature (97.8 F-99.1 F) 96.5 F L 97.3 F L Temperature Source Temporal Temporal Temporal Pulse Rate (60-100) 73 108 H Pulse Location Monitor Monitor Monitor Respiratory Rate (12-18) 16 Respiratory rate source Observation Oxygen Delivery Method Room Air Blood Pressure (90/60-120/80) 111/55 L 116/59 L Blood Pressure Mean 73 78 Source Monitor Monitor Monitor Position Sitting Semi-Fowlers Blood Pressure Location Right Arm Right Arm History Since Last Visit- (Skip if this is Patient's initial visit) Have you changed medications since your No No No last visit? Any new allergies or adverse reactions No No No Had a fall/change in ADL's that may No No No increase risk of falls Signs or symptoms of abuse and/or No No No neglect since last visit Have you been in the hospital since your No No No last visit? Has dressing in place as prescribed Yes Yes Yes Has compression in place as prescribed Yes Yes N/A Has offloadiing in place as prescribed No N/A N/A Experienced any changes in pain level or No No No management Left Footwear Regular Shoe Regular Shoe Regular Shoe Right Footwear Regular Shoe Regular Shoe Regular Shoe Pain Scale: 0-10 Numeric Is Patient Pain Free? Yes Yes WC - Nurse 1 - General Ulcer Measurement Start: 01/25/21 09:51 Freq: Status: Active Protocol: Activity Type Activity Date Activity User E-Sign Co-Sign Detail Recorded Client Recorded Date Recorded By Document 01/25/21 09:51 AK [id number] 01/25/21 10:15 AK Document 02/01/21 09:13 MW [id number] 02/01/21 09:29 MW Document 02/15/21 09:57 KR [id number] 02/15/21 10:10 KR 01/25/21 02/01/21 02/15/21 09:51 09:13 09:57 Wound Center Nurse 1 #4 Left Calf -Combined with other wound No No -Current Size (cm) - Length 1.4 1.5 -Current Size (cm) - Width 1.5 1.6 -Current Size (cm) - Depth 0.2 0.2 -Total Square Cm 2.10 2.40 -Photo Taken No -Epithelialization None Present None Present -Tunneling No No -Undermining/Tunneling No No -Circular Undermining No No -Exudate Amt Medium Small -Exudate Type Serosanguineous Serosanguineous -Wound Margin Thickened Distinct, Outline Attached -Granulation Amt Small (1-33%) None Present (0 %) -Granulation Quality Mcconnell -Slough/Fibrin Yes Yes -Necrosis Amt Large (67-100%) Large (67-100%) -Necrotic Tissue Type Adherent Slough Adherent Slough -Structure Exposed N/A -Texture (Susie-wound Skin Appearance) Assessed, Assessed, Scarring Scarring -Moisture (Susie-wound Skin Appearance) Assessed Assessed,Dry/ Scaly -Color (Susie-wound Skin Appearance) Assessed, No Abnormality, Hemosiderin Assessed Staining -Temperature (Susie-wound Skin No Abnormality No Abnormality Appearance) (Pt Warm) (Pt Warm) -Tenderness on Palpation (Susie-wound Yes No Skin Appearance) -Ulcer Cleansing Rinsed/ Rinsed/ Irrigated with Irrigated with Saline Saline -Foul Odor after Cleansing No No -Anesthetic Used 4% Lidocaine 5% Lidocaine Solution Gel #3 Right Calf -Combined with other wound No No No -Current Size (cm) - Length 1.3 2.5 2.2 -Current Size (cm) - Width 0.6 1.0 0.1 -Current Size (cm) - Depth 0.3 0.3 0.2 -Total Square Cm 0.78 2.50 0.22 -Photo Taken No No No -Epithelialization Small 1-33% None Present None Present -Tunneling No No -Undermining/Tunneling No No No -Circular Undermining No No No -Exudate Amt Medium Small -Exudate Type Serosanguineous Serosanguineous Serosanguineous -Wound Margin Distinct, Thickened Distinct, Outline Outline Attached Attached -Granulation Amt Medium (34-66%) Small (1-33%) Small (1-33%) -Granulation Quality M[place]onnell Red -Slough/Fibrin Yes Yes -Necrosis Amt None Present (0 Large (67-100%) Large (67-100%) %) -Necrotic Tissue Type Adherent Slough Adherent Slough -Structure Exposed N/A -Texture (Susie-wound Skin Appearance) No Abnormality, Assessed, Assessed, Assessed Scarring Scarring -Moisture (Susie-wound Skin Appearance) No Abnormality, No Abnormality, No Abnormality, Assessed Assessed Assessed -Color (Susie-wound Skin Appearance) No Abnormality Assessed, No Abnormality, Hemosiderin Assessed Staining -Temperature (Susie-wound Skin No Abnormality No Abnormality No Abnormality Appearance) (Pt Warm) (Pt Warm) (Pt Warm) -Tenderness on Palpation (Susie-wound No No No Skin Appearance) -Ulcer Cleansing Rinsed/ Rinsed/ Rinsed/ Irrigated with Irrigated with Irrigated with Saline Saline Saline -Foul Odor after Cleansing No No No -Anesthetic Used 5% Lidocaine 4% Lidocaine 5% Lidocaine Gel Solution Gel #2 Left Ankle -Combined with other wound No No No -Current Size (cm) - Length 0.8 0.6 0.6 -Current Size (cm) - Width 1.6 1.0 0.4 -Current Size (cm) - Depth 0.4 0.3 0.2 -Total Square Cm 1.28 0.60 0.24 -Photo Taken No No No -Epithelialization Medium 34-66% None Present None Present -Tunneling No No No -Undermining/Tunneling No No -Circular Undermining No No No -Change in Wound Grade/Stage No -Exudate Amt Small Medium -Exudate Type Serosanguineous -Wound Margin Distinct, Thickened Distinct, Outline Outline Attached Attached -Granulation Amt Medium (34-66%) Small (1-33%) None Present (0 %) -Granulation Quality Red Mcconnell -Slough/Fibrin Yes Yes Yes -Necrosis Amt Small (1-33%) Large (67-100%) Large (67-100%) -Necrotic Tissue Type Adherent Slough Adherent Slough -Structure Exposed N/A -Texture (Susie-wound Skin Appearance) No Abnormality, Assessed, Assessed, Assessed Scarring Scarring -Moisture (Susie-wound Skin Appearance) No Abnormality, No Abnormality, No Abnormality, Assessed Assessed Assessed,Dry/ Scaly -Color (Susie-wound Skin Appearance) No Abnormality, Assessed, No Abnormality, Assessed Hemosiderin Assessed Staining -Temperature (Susie-wound Skin No Abnormality No Abnormality No Abnormality Appearance) (Pt Warm) (Pt Warm) (Pt Warm) -Tenderness on Palpation (Susie-wound No Yes No Skin Appearance) -Ulcer Cleansing Rinsed/ Rinsed/ Rinsed/ Irrigated with Irrigated with Irrigated with Saline Saline Saline -Foul Odor after Cleansing No No No -Anesthetic Used 5% Lidocaine 4% Lidocaine 5% Lidocaine Gel Solution Gel Lower Limb Edema Present No Yes Right Calf (cm) 34.5 36.5 Point of measurement (cm from the medial 35.5 instep) Right Ankle (cm) 23 22.2 23.8 Left Calf (cm) 35 34.5 35 Left Ankle (cm) 22 22.0 23.6 WC - Nurse 2 - General Ulcer CM Notes Start: 01/25/21 09:51 Freq: Status: Active Protocol: Activity Type Activity Date Activity User E-Sign Co-Sign Detail Recorded Client Recorded Date Recorded By Document 01/25/21 12:14 PL [id number] 01/25/21 12:21 PL Document 02/01/21 12:54 PL [id number] 02/01/21 12:56 PL Document 02/15/21 12:09 PL [id number] 02/15/21 12:13 PL 01/25/21 02/01/21 02/15/21 12:14 12:54 12:09 Wound Center Nurse 2 #4 Left Calf -Time 09:50 10:21 -Correct Patient Yes Yes -Correct Side, Site, Position Yes Yes -Correct Procedure Yes Yes -Procedure Performed Yes Yes -Type of Procedure Debridement Debridement -Clinical Debridement Subcutaneous Subcutaneous -Tissue Removed Subcutaneous Subcutaneous -Post Debridement (cm) - Length 1.4 1.5 -Post Debridement (cm) - Width 1.5 1.6 -Post Debridement (cm) - Depth 0.2 0.2 -Total Square (Post) (cm) 2.10 2.40 -Area of Debridement (cm) - Length 1.4 1.5 -Area of Debridement (cm) - Width 1.5 1.6 -Total Square (Area) (cm) 2.10 2.40 -Tunneling No No -Undermining/Tunneling No No -Circular Undermining No No -Wound/Ulcer Outcome Not Healed Not Healed -Ulcer Cleansing Rinsed/ Rinsed/ Irrigated with Irrigated with Saline Saline -Foul Odor after Cleansing No No -Bioengineered Tissue No No -Debridement - Subq, 1st 20sq cm Yes Yes #3 Right Calf -Time 10:21 09:50 10:21 -Correct Patient Yes Yes Yes -Correct Side, Site, Position Yes Yes Yes -Correct Procedure Yes Yes Yes -Procedure Performed Yes Yes Yes -Type of Procedure Debridement Debridement Debridement -Clinical Debridement Subcutaneous Subcutaneous Subcutaneous -Tissue Removed Subcutaneous Subcutaneous Subcutaneous -Post Debridement (cm) - Length 1.3 2.5 2.2 -Post Debridement (cm) - Width 0.6 1.0 0.1 -Post Debridement (cm) - Depth 0.3 0.3 0.2 -Total Square (Post) (cm) 0.78 2.50 0.22 -Area of Debridement (cm) - Length 1.3 2.5 2.2 -Area of Debridement (cm) - Width 0.6 1.0 0.1 -Total Square (Area) (cm) 0.78 2.50 0.22 -Tunneling No No No -Undermining/Tunneling No No No -Circular Undermining No No No -Wound/Ulcer Outcome Not Healed Not Healed Not Healed -Ulcer Cleansing Rinsed/ Rinsed/ Rinsed/ Irrigated with Irrigated with Irrigated with Saline Saline Saline -Foul Odor after Cleansing No No No -Bioengineered Tissue No No No -Bleeding Controlled with Pressure Pressure -Treatment Response Procedure Procedure Tolerated Well Tolerated Well -Debridement - Subq, 1st 20sq cm Yes No No #2 Left Ankle -Time 10: 09:50 10:21 -Correct Patient Yes Yes Yes -Correct Side, Site, Position Yes Yes Yes -Correct Procedure Yes Yes Yes -Procedure Performed Yes Yes Yes -Type of Procedure Debridement Debridement Debridement -Clinical Debridement Subcutaneous Subcutaneous Subcutaneous -Tissue Removed Subcutaneous Subcutaneous Subcutaneous -Post Debridement (cm) - Length 0.8 0.6 0.6 -Post Debridement (cm) - Width 1.6 1.0 0.4 -Post Debridement (cm) - Depth 0.4 0.3 0.2 -Total Square (Post) (cm) 1.28 0.60 0.24 -Area of Debridement (cm) - Length 0.8 0.6 0.6 -Area of Debridement (cm) - Width 1.6 1.0 0.4 -Total Square (Area) (cm) 1.28 0.60 0.24 -Tunneling No No No -Undermining/Tunneling No No No -Circular Undermining No No No -Wound/Ulcer Outcome Not Healed Not Healed Not Healed -Ulcer Cleansing Rinsed/ Rinsed/ Rinsed/ Irrigated with Irrigated with Irrigated with Saline Saline Saline -Foul Odor after Cleansing No No No -Bioengineered Tissue No No No -Bleeding Controlled with Pressure Pressure -Treatment Response Procedure Procedure Tolerated Well Tolerated Well -Debridement - Subq, 1st 20sq cm No No No WC - Nurse 3 - General Ulcer D/C NN Start: 01/25/21 09:51 Freq: Status: Active Protocol: Activity Type Activity Date Activity User E-Sign Co-Sign Detail Recorded Client Recorded Date Recorded By Document 01/25/21 10:39 KR [id number] 01/25/21 10:40 KR Document 02/01/21 10:13 KR [id number] 02/01/21 10:14 KR Document 02/15/21 10:34 KR [id number] 02/15/21 10:35 KR 01/25/21 02/01/21 02/15/21 10:39 10:13 10:34 Wound Care Nurse 3 #4 Left Calf -Primary Dressing Applied Promogran -Primary Dressing Covered/Secured with Dry Gauze, Dry Gauze, Dry Gauze, Secured with Secured with Secured with Tape Tape Tape -Promogran 1 #3 Right Calf -Primary Dressing Covered/Secured with Dry Gauze, Dry Gauze, Dry Gauze, Secured with Secured with Secured with Tape Tape Tape #2 Left Ankle -Primary Dressing Covered/Secured with Dry Gauze, Dry Gauze, Dry Gauze, Secured with Secured with Secured with Tape Tape Tape Pain Scale: 0-10 Numeric Is Patient Pain Free? Yes Yes Yes WC - Visit Discharge Discharge Condition Stable Stable Stable Ambulatory Status Ambulatory Ambulatory Ambulatory Transportation Private Auto Private Auto Private Auto Accompanied by Wound debrided: Left posterior calf Laterality: Left Type of Debridement: Excisional debridement Anesthesia Used: 5% Lidocaine Gel Depth: Down to and including healthy tissue and in the subcutaneous layer Percentage of wound debrided: 100 Instrument Used: 5mm curette Tissue Removed: Bioburden Severity: Fat Layer Exposed Amount of bleeding with debridement: Mild Bleeding Controlled with: Compression and gauze Patient tolerated procedure: Patient tolerated procedure well Additional Wound Wound debrided: Left posterior ankle Laterality: Left Type of Debridement: Excisional debridement Anesthesia Used: 5% Lidocaine Gel Depth: Down to and including healthy tissue and in the subcutaneous layer Percentage of wound debrided: 100 Instrument Used: 5mm curette Tissue Removed: Bioburden Severity: Fat Layer Exposed Amount of bleeding with debridement: Mild Bleeding Controlled with: Compression and gauze Patient tolerated procedure: Patient tolerated procedure well Additional Wound Wound debrided: Right posterior calf Laterality: Right Type of Debridement: Excisional debridement Anesthesia Used: 5% Lidocaine Gel Depth: Down to and including healthy tissue and in the subcutaneous layer Percentage of wound debrided: 100 Instrument Used: 5mm curette Tissue Removed: Bioburden Severity: Fat Layer Exposed Amount of bleeding with debridement: Mild Bleeding Controlled with: Compression and gauze Patient tolerated procedure: Patient tolerated procedure well Assessment/Plan Assessment/Plan (1) Bilateral leg ulcer: CODE(S): L97.919 - Non-pressure chronic ulcer of unspecified part of right lower leg with unspecified severity; L97.929 - Non-pressure chronic ulcer of unspecified part of left lower leg with unspecified severity QUALIFIERS: Non-pressure ulcer stage: with fat layer exposed Qualified Code(s): L97.912 - Non-pressure chronic ulcer of unspecified part of right lower leg with fat layer exposed; L97.922 - Non-pressure chronic ulcer of unspecified part of left lower leg with fat layer exposed (2) Leg ulcer: CODE(S): L97.909 - Non-pressure chronic ulcer of unspecified part of unspecified lower leg with unspecified severity QUALIFIERS: Laterality: unspecified laterality Non-pressure ulcer stage: with fat layer exposed Qualified Code(s): L97.902 - Non-pressure chronic ulcer of unspecified part of unspecified lower leg with fat layer exposed (3) Malnutrition of mild degree: CODE(S): E44.1 - Mild protein-calorie malnutrition (4) Tricuspid valve regurgitation: CODE(S): I07.1 - Rheumatic tricuspid insufficiency (5) CHF (congestive heart failure): CODE(S): I50.9 - Heart failure, unspecified (6) Chronic kidney disease, stage III (moderate): CODE(S): N18.30 - Chronic kidney disease, stage 3 unspecified (7) Hyperlipidemia: CODE(S): E78.5 - Hyperlipidemia, unspecified (8) History of tobacco use disorder: CODE(S): Z87.891 - Personal history of nicotine dependence (9) Pulmonary hypertension: CODE(S): I27.20 - Pulmonary hypertension, unspecified (10) BECKIE (obstructive sleep apnea): CODE(S): G47.33 - Obstructive sleep apnea (adult) (pediatric) (11) History of stroke: CODE(S): Z86.73 - Personal history of transient ischemic attack (TIA), and cerebral infarction without residual deficits (12) History of alcohol abuse: CODE(S): F10.11 - Alcohol abuse, in remission (13) Afib: CODE(S): I48.91 - Unspecified atrial fibrillation (14) BPH (benign prostatic hyperplasia): (15) HTN (hypertension): CODE(S): I10 - Essential (primary) hypertension (16) DM2 (diabetes mellitus, type 2): CODE(S): E11.9 - Type 2 diabetes mellitus without complications (17) Dyslipidemia: CODE(S): E78.5 - Hyperlipidemia, unspecified PLAN: This is an 85-year-old male who presented with ulcerations in both lower extremities. These were of several months duration, and appear to have developed while the patient's lower extremities were extremely swollen and edematous as result of congestive heart failure. The swelling and edema has now resolved as a result of aggressive medical therapy. The wounds persist at this time. We are to continue conservative treatment measures, which have been reviewed thoroughly with the patient and his , who is at the bedside. The patient is to continue sleeping flat at night. He is to elevate his legs to heart level even during daytime hours, as much as possible. Prolonged idle sitting has been discouraged. Activity has been encouraged. We are to continue compression to the lower extremities by means of Tubigrips, which will be doubled. A noninvasive lower extremity arterial study reveals normal arterial flow at ankle level bilaterally. 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 We are to transition to the use of Promogran topically to each of the patient's ulcerations. This will be applied topically every other day, and the patient, and his , have been instructed in the appropriate means of application. The patient has been advised to enhance his nutritional intake to enhance the healing process. Optimization of the patient's glycemic status has also been recommended, and the patient is collaborating with his primary care physician, Dr. Loyd, in this regard. The patient has undergone laboratory studies recently at the [facility], and results have been reviewed. Among the results, BUN was 35 and creatinine 1.54. Total protein was 7.0 and albumin 3.9. Patient has been encouraged to augment his nutritional intake. The patient's primary care physician, Dr. Loyd, continues to monitor the patient from metabolic standpoint on an ongoing basis. A culture of the patient's left posterior calf ulceration has been obtained for both aerobic and anaerobic bacterial growth. The results demonstrate the growth of Klebsiella oxytoca, Corynebacterium amycolatum, and Actinomyces odontolyticus. Based upon the sensitivity profile, the patient has been placed on Augmentin 875 mg p.o. twice daily for 10 days, which has now been completed. The patient is to return in 2 weeks for reassessment. Total time: 28 minutes.
== END 2021-02-22 23:59 ==
LOC: WC 09:45
PROVIDERS: PCP Internal Medicine; Referring Provider Internal Medicine; Visit Provider Surgery
DX: E11.622 Type 2 diabetes mellitus with other skin ulcer (principal); L97.222 Non-pressure chronic ulcer of left calf with fat layer exposed; L97.322 Non-pressure chronic ulcer of left ankle with fat layer exposed; L97.212 Non-pressure chronic ulcer of right calf with fat layer exposed; M79.89 Other specified soft tissue disorders; R60.0 Localized edema; I13.0 Hypertensive heart and chronic kidney disease with heart failure and stage 1 through stage 4 chronic kidney disease, or unspecified chronic kidney disease; E11.22 Type 2 diabetes mellitus with diabetic chronic kidney disease; N18.30 Chronic kidney disease, stage 3 unspecified; I50.9 Heart failure, unspecified; I27.20 Pulmonary hypertension, unspecified; I36.1 Nonrheumatic tricuspid (valve) insufficiency; I48.91 Unspecified atrial fibrillation; E78.5 Hyperlipidemia, unspecified; G47.33 Obstructive sleep apnea (adult) (pediatric); N40.0 Benign prostatic hyperplasia without lower urinary tract symptoms; F10.11 Alcohol abuse, in remission; F17.200 Nicotine dependence, unspecified, uncomplicated; E66.9 Obesity, unspecified; Z68.30 Body mass index [BMI] 30.0-30.9, adult; Z79.82 Long term (current) use of aspirin; Z79.01 Long term (current) use of anticoagulants; Z79.84 Long term (current) use of oral hypoglycemic drugs; Z79.899 Other long term (current) drug therapy; Z86.73 Personal history of transient ischemic attack (TIA), and cerebral infarction without residual deficits
CPT/HCPCS: 11042

== ENCOUNTER 2021-03-15 09:45 | Outpatient (RCR) | payer MEDICARE, OTHER, SELFPAY ==
[2021-02-23 00:36] VITALS: BP 116/59; PULSE 108; RESP 16; TEMP 36.3; BMI 30.3
[2021-03-01 09:46] VITALS: BP 138/69; PULSE 103; RESP 16; TEMP 35.8; BMI 30.3
--- NOTE | 2021-03-01 10:12 | PCM.WC.PN ---
History of Present Illness Date of Service: 03/01/21 Chief Complaint: Bilateral leg ulcerations History of Wound: This is an 85-year-old male who presented with ulcerations on both lower extremities. The ulcerations occurred approximately 2 months prior to presentation. They are thought to have resulted from severe swelling and edema in both lower extremities which occurred as a result of exacerbation of congestive heart failure. In fact, the patient was hospitalized for several days at [facility] from October 31, 2020, to November 02, 2020, in treatment for congestive heart failure. As result of medical therapy, the patient lost over 20 pounds, and a diuresis was effected. As result, the swelling and edema in the patient's lower extremities resolved, though the resulting ulcerations have persisted. The patient and his had been applying bacitracin topically prior to coming to wound care center. He generally sleeps on a flat surface at night. However, he is not very active during daytime hours, often falling asleep in a semi-upright position during the day. The patient has multiple pre-existing medical problems, which are listed below. Recent laboratory results have been reviewed, and revealed the presence of chronic kidney disease, with elevated BUN and creatinine, and diminished protein and serum albumin levels. He is seeing his PCP for CHF management Progress of Wound: improved Subjective Subjective Patient seen and examined resting comfortably. Patient denies any new pedal complaints. Patient denies any nausea, fever, chills, chest pain, shortness of breath, cough, streaking, purulence, vomiting. Objective Data Objective Data Vital Signs: Vital Signs Temp Pulse Resp BP 96.5 F L 103 H 16 138/69 H 03/01/21 09:46 03/01/21 09:46 03/01/21 09:46 03/01/21 09:46 Oxygen Delivery Method Room Air Body Mass Index (BMI) 30.3 Physical Exam Const alert and no apparent distress General Appearance: cooperative and comfortable HEENT Head and Scalp: atraumatic Lymph Lymphatic: no lymphedema noted Resp normal respiratory effort Effort and Inspection: able to speak in complete sentences Extremity normal capillary refill and no calf tenderness General Extremity: calf tenderness, edema bilateral lower extremity, no tenderness to palpation of joints or extremities and other findings Other Details: Capillary refill time less than 3 seconds noted to digits ; Negative for clubbing or cyanosis Peripheral Pulses: Yes posterior tibial pulses present bilateral diminished and dorsalis pedis pulses present bilateral diminished Skin General Skin Exam: atrophy and dry skin; Negative for ecchymosis, erythema, eschar, pallor or dermatitis Rashes: no rashes Wounds: wounds noted Wound Narrative: ulcers noted to left posterior ankle and calf and right posterior calf. No malodor, erythema, purulence, probing to bone, streaking, fluctuation, crepitus, or other signs of infection. Skin is atrophic and hairless. Granular base. All to the level of fascia. Neuro Sensory Exam: extremities light-touch: normal Motor Exam: strength 5/5 throughout Psych Appearance: appropriate Attitude: calm Debridement Note Debridement Note Wound debrided: Posterior calf and ankle Laterality: Left Wound Grade/Stage: Doll 1 Type of Debridement: Excisional debridement Anesthesia Used: 4% Lidocaine Solution Depth: in the subcutaneous layer Percentage of wound debrided: 100 Instrument Used: 3mm curette Tissue Removed: includes fibrous, devitalized, biofilm, callus and slough tissue Severity: Fat Layer Exposed Amount of bleeding with debridement: Mild Bleeding Controlled with: Pressure Patient tolerated procedure: Patient tolerated procedure well Post-Debridement Measurements and Additional Note: Post-Debridement Measurements/Treatment - Nurse 1 - General Ulcer Assessment Start: 03/01/21 09:46 Freq: Status: Active Protocol: MATTEO Activity Type Activity Date Activity User E-Sign Co-Sign Detail Recorded Client Recorded Date Recorded By Document 03/01/21 09:46 MARS [id number] 03/01/21 09:51 MARS 03/01/21 09:46 - Today's Visit Information Type of service Follow-up Visit (Physician/RESOURCING CONSULTANT ) Arrival Mode Ambulatory Transfer Assistance None Accompanied by Patient Identification Verified (Name & No ) Patient Requires Transmission-Based No Precautions Height and Weight Body Mass Index (BMI) 30.3 BMI Classification Obese Vital Signs Temperature (97.8 F-99.1 F) 96.5 F L Temperature Source Temporal Pulse Rate (60-100) 103 H Pulse Location Monitor Respiratory Rate (12-18) 16 Respiratory rate source Observation Oxygen Delivery Method Room Air Blood Pressure (90/60-120/80) 138/69 H Blood Pressure Mean (mm Hg) 92 Source Monitor Position Sitting History Since Last Visit- (Skip if this is Patient's initial visit) Have you changed medications since your No last visit? Any new allergies or adverse reactions No Had a fall/change in ADL's that may No increase risk of falls Signs or symptoms of abuse and/or No neglect since last visit Have you been in the hospital since your No last visit? Has dressing in place as prescribed Yes Has compression in place as prescribed Yes Has offloadiing in place as prescribed N/A Experienced any changes in pain level or No management Left Footwear Regular Shoe Right Footwear Regular Shoe Pain Scale: 0-10 Numeric Is Patient Pain Free? Yes WC - Nurse 1 - General Ulcer Measurement Start: 03/01/21 09:46 Freq: Status: Active Protocol: Activity Type Activity Date Activity User E-Sign Co-Sign Detail Recorded Client Recorded Date Recorded By Document 03/01/21 09:46 MARS [id number] 03/01/21 09:51 MARS 03/01/21 09:46 Wound Center Nurse 1 #4 Left Calf -Combined with other wound No -Current Size (cm) - Length 1 -Current Size (cm) - Width 1.2 -Current Size (cm) - Depth 0.2 -Total Square Cm 1.2 -Photo Taken No -Epithelialization None Present -Tunneling No -Undermining/Tunneling No -Circular Undermining No -Exudate Amt Medium -Exudate Type Serosanguineous -Wound Margin Distinct, Outline Attached -Granulation Amt Medium (34-66%) -Granulation Quality Red -Slough/Fibrin Yes -Necrosis Amt Medium (34-66%) -Necrotic Tissue Type Adherent Slough -Texture (Susie-wound Skin Appearance) Assessed -Moisture (Susie-wound Skin Appearance) Assessed -Color (Susie-wound Skin Appearance) Assessed -Temperature (Susie-wound Skin No Abnormality Appearance) (Pt Warm) -Tenderness on Palpation (Susie-wound No Skin Appearance) -Ulcer Cleansing Rinsed/ Irrigated with Saline -Foul Odor after Cleansing No -Anesthetic Used 4% Lidocaine Solution #3 Right Calf -Combined with other wound No -Current Size (cm) - Length 2.5 -Current Size (cm) - Width 0.4 -Current Size (cm) - Depth 0.2 -Total Square Cm 1.00 -Photo Taken No -Epithelialization None Present -Tunneling No -Undermining/Tunneling No -Circular Undermining No -Exudate Amt Medium -Exudate Type Serosanguineous -Wound Margin Distinct, Outline Attached -Granulation Amt None Present (0 %) -Slough/Fibrin Yes -Necrosis Amt Large (67-100%) -Necrotic Tissue Type Eschar -Texture (Susie-wound Skin Appearance) Assessed, Scarring -Moisture (Susie-wound Skin Appearance) Assessed -Color (Susie-wound Skin Appearance) Assessed -Temperature (Susie-wound Skin No Abnormality Appearance) (Pt Warm) -Tenderness on Palpation (Susie-wound No Skin Appearance) -Ulcer Cleansing Rinsed/ Irrigated with Saline -Foul Odor after Cleansing No -Anesthetic Used 4% Lidocaine Solution #2 Left Ankle -Combined with other wound No -Current Size (cm) - Length 0.7 -Current Size (cm) - Width 1 -Current Size (cm) - Depth 0.2 -Total Square Cm 0.7 -Photo Taken No -Epithelialization None Present -Tunneling No -Undermining/Tunneling No -Circular Undermining No -Exudate Amt Medium -Exudate Type Serosanguineous -Wound Margin Distinct, Outline Attached -Granulation Amt Medium (34-66%) -Granulation Quality Red -Slough/Fibrin Yes -Necrosis Amt Small (1-33%) -Necrotic Tissue Type Adherent Slough -Texture (Susie-wound Skin Appearance) Assessed, Scarring -Moisture (Susie-wound Skin Appearance) Assessed -Color (Susie-wound Skin Appearance) Assessed -Temperature (Susie-wound Skin No Abnormality Appearance) (Pt Warm) -Tenderness on Palpation (Susie-wound No Skin Appearance) -Ulcer Cleansing Rinsed/ Irrigated with Saline -Foul Odor after Cleansing No -Anesthetic Used 4% Lidocaine Solution Lower Limb Edema Present Yes Right Calf (cm) 37.2 Right Ankle (cm) 23.9 Left Calf (cm) 37.1 Left Ankle (cm) 24.4 WC - Nurse 2 - General Ulcer CM Notes Start: 03/01/21 09:46 Freq: Status: Active Protocol: Activity Type Activity Date Activity User E-Sign Co-Sign Detail Recorded Client Recorded Date Recorded By Document 03/01/21 10:05 MW [id number] 03/01/21 10:11 MW 03/01/21 10:05 Wound Center Nurse 2 #4 Left Calf -Time 10:06 -Correct Patient Yes -Correct Side, Site, Position Yes -Correct Procedure Yes -Procedure Performed Yes -Type of Procedure Debridement -Clinical Debridement Subcutaneous -Tissue Removed Subcutaneous -Post Debridement (cm) - Length 1.2 -Post Debridement (cm) - Width 1.4 -Post Debridement (cm) - Depth 0.2 -Total Square (Post) (cm) 1.68 -Area of Debridement (cm) - Length 1.2 -Area of Debridement (cm) - Width 1.4 -Total Square (Area) (cm) 1.68 -Tunneling No -Undermining/Tunneling No -Circular Undermining No -Wound/Ulcer Outcome Not Healed -Ulcer Cleansing Rinsed/ Irrigated with Saline -Foul Odor after Cleansing No -Bioengineered Tissue No -Bleeding Controlled with Pressure -Offloading No -Treatment Response Procedure Tolerated Well -Debridement - Subq, 1st 20sq cm Yes #3 Right Calf -Time 10:06 -Correct Patient Yes -Correct Side, Site, Position Yes -Correct Procedure Yes -Procedure Performed Yes -Type of Procedure Debridement -Clinical Debridement Subcutaneous -Tissue Removed Subcutaneous -Post Debridement (cm) - Length 0.6 -Post Debridement (cm) - Width 0.7 -Post Debridement (cm) - Depth 0.2 -Total Square (Post) (cm) 0.42 -Area of Debridement (cm) - Length 0.6 -Area of Debridement (cm) - Width 0.7 -Total Square (Area) (cm) 0.42 -Tunneling No -Undermining/Tunneling No -Circular Undermining No -Wound/Ulcer Outcome Not Healed -Ulcer Cleansing Rinsed/ Irrigated with Saline -Foul Odor after Cleansing No -Bioengineered Tissue No -Bleeding Controlled with Pressure -Offloading No -Treatment Response Procedure Tolerated Well -Debridement - Subq, 1st 20sq cm No #2 Left Ankle -Time 10:07 -Correct Patient Yes -Correct Side, Site, Position Yes -Correct Procedure Yes -Procedure Performed Yes -Type of Procedure Debridement -Clinical Debridement Subcutaneous -Tissue Removed Subcutaneous -Post Debridement (cm) - Length 0.5 -Post Debridement (cm) - Width 1.1 -Post Debridement (cm) - Depth 0.2 -Total Square (Post) (cm) 0.55 -Area of Debridement (cm) - Length 0.5 -Area of Debridement (cm) - Width 1.1 -Total Square (Area) (cm) 0.55 -Tunneling No -Undermining/Tunneling No -Circular Undermining No -Wound/Ulcer Outcome Not Healed -Ulcer Cleansing Rinsed/ Irrigated with Saline -Foul Odor after Cleansing No -Bioengineered Tissue No -Bleeding Controlled with Pressure -Offloading No -Treatment Response Procedure Tolerated Well -Debridement - Subq, 1st 20sq cm No Pain Scale: 0-10 Numeric Is Patient Pain Free? Yes Additional Wound Wound debrided: Posterior calf Laterality: Right Wound Grade/Stage: Doll 1 Type of Debridement: Excisional debridement Anesthesia Used: 4% Lidocaine Solution Depth: in the subcutaneous layer Percentage of wound debrided: 100 Instrument Used: 3mm curette Tissue Removed: Includes fibrous, devitalized, biofilm, callus and slough tissue Severity: Fat Layer Exposed Amount of bleeding with debridement: Mild Bleeding Controlled with: Pressure Patient tolerated procedure: Patient tolerated procedure well Assessment/Plan Assessment/Plan (1) Bilateral leg ulcer: CODE(S): L97.919 - Non-pressure chronic ulcer of unspecified part of right lower leg with unspecified severity; L97.929 - Non-pressure chronic ulcer of unspecified part of left lower leg with unspecified severity QUALIFIERS: Non-pressure ulcer stage: with fat layer exposed Qualified Code(s): L97.912 - Non-pressure chronic ulcer of unspecified part of right lower leg with fat layer exposed; L97.922 - Non-pressure chronic ulcer of unspecified part of left lower leg with fat layer exposed (2) CHF (congestive heart failure): CODE(S): I50.9 - Heart failure, unspecified (3) Chronic kidney disease, stage III (moderate): CODE(S): N18.30 - Chronic kidney disease, stage 3 unspecified (4) History of tobacco use disorder: CODE(S): Z87.891 - Personal history of nicotine dependence (5) History of alcohol abuse: CODE(S): F10.11 - Alcohol abuse, in remission (6) DM2 (diabetes mellitus, type 2): CODE(S): E11.9 - Type 2 diabetes mellitus without complications PLAN: Patient seen and examined with present This is an 85-year-old male who presented with ulcerations in both lower extremities. These were of several months duration, and appear to have developed while the patient's lower extremities were extremely swollen and edematous as result of congestive heart failure. The swelling and edema has now resolved as a result of aggressive medical therapy. The wounds persist at this time. We are to continue conservative treatment measures, which have been reviewed thoroughly with the patient and his , who is at the bedside. The patient is to continue sleeping flat at night. He is to elevate his legs to heart level even during daytime hours, as much as possible. Prolonged idle sitting has been discouraged. Activity has been encouraged. We are to continue compression to the lower extremities by means of Tubigrips, which will be doubled. After verbal consent was obtained bilateral lower extremities ulcerations were sharply debrided without incident A noninvasive lower extremity arterial study reveals normal arterial flow at ankle level bilaterally. 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 We are using Promogran topically to each of the patient's ulcerations every other day covered by DSD and Tubigrip's. The patient has been advised to enhance his nutritional intake to enhance the healing process. Optimization of the patient's glycemic status has also been recommended, and the patient is collaborating with his primary care physician, Dr. Loyd, in this regard. The patient has undergone laboratory studies recently at the [facility], and results have been reviewed. Among the results, BUN was 35 and creatinine 1.54. Total protein was 7.0 and albumin 3.9. Patient has been encouraged to augment his nutritional intake. The patient's primary care physician, Dr. Loyd, continues to monitor the patient from metabolic standpoint on an ongoing basis. A culture of the patient's left posterior calf ulceration was obtained 01/18/2021. The results demonstrate the growth of Klebsiella oxytoca, Corynebacterium amycolatum, and Actinomyces odontolyticus. Based upon the sensitivity profile, the patient has been placed on Augmentin 875 mg p.o. twice daily for 10 days, which has now been completed. Patient reports no problems with the antibiotic. All questions were answered The patient is to return in 2 weeks for reassessment with Dr. Thapa. This note was generated with [employer] software. It may contain incorrect words, spelling, and punctuation that were not noted in checking the note before signing.
[2021-03-15 10:05] VITALS: PULSE 68; TEMP 36.5; BMI 30.3
--- NOTE | 2021-03-15 12:52 | HP.PCM_ITS ---
History of Present Illness Date of Service: 03/15/21 Chief Complaint: Bilateral leg ulcerations History of Wound: This is an 85-year-old male who presented with ulcerations on both lower extremities. The ulcerations occurred approximately 2 months prior to presentation. They are thought to have resulted from severe swelling and edema in both lower extremities which occurred as a result of exacerbation of congestive heart failure. In fact, the patient was hospitalized for several days at [facility] from October 31, 2020, to November 02, 2020, in treatment for congestive heart failure. As result of medical therapy, the patient lost over 20 pounds, and a diuresis was effected. As result, the swelling and edema in the patient's lower extremities resolved, though the resulting ulcerations have persisted. The patient and his had been applying bacitracin topically prior to coming to wound care center. He generally sleeps on a flat surface at night. However, he is not very active during daytime hours, often falling asleep in a semi-upright position during the day. The patient has multiple pre-existing medical problems, which are listed below. Recent laboratory results have been reviewed, and revealed the presence of chronic kidney disease, with elevated BUN and creatinine, and diminished protein and serum albumin levels. He is seeing his PCP for CHF management Progress of Wound: improved [facility] Medical History Atrial fibrillation Bilateral leg ulcer CHF (congestive heart failure) CHF exacerbation Chronic kidney disease, stage III (moderate) Congestive heart failure (CHF) Diabetes History of alcohol abuse History of alcohol use History of CVA (cerebrovascular accident) History of stroke History of tobacco use disorder Hyperlipemia Hyperlipidemia Hypertension Leg ulcer Macular degeneration Malnutrition of mild degree BECKIE (obstructive sleep apnea) Pulmonary hypertension Smoker Tricuspid valve regurgitation Home Medications PreserVision AREDS-2 1 ea PO DAILY 12/18/13 [History Last Taken Unknown] aspirin 81 mg PO DAILY@0800 12/18/13 [History Last Taken Unknown] atorvastatin 20 mg PO QHS 12/18/13 [History Last Taken Unknown] glimepiride 2 mg PO DINNER 12/18/13 [History Last Taken Unknown] losartan 150 mg PO DAILY 12/18/13 [History Last Taken Unknown] metformin 1,000 mg PO BIDCM 12/18/13 [History Last Taken Unknown] doxazosin [Cardura] 8 mg PO QHS 10/31/20 [History Last Taken Unknown] metoprolol tartrate 50 mg PO BID 10/31/20 [History Last Taken Unknown] verapamil 180 mg PO BID 10/31/20 [History Last Taken Unknown] warfarin 2.5 mg PO MO 10/31/20 [History Last Taken Unknown] warfarin 5 mg PO SUTUWETHFRSA 10/31/20 [History Last Taken Unknown] furosemide [Lasix] 40 mg PO BID #60 tab 11/02/20 [Rx Last Taken Unknown] Allergy/AdvReac Type Severity Reaction Status Date / Time atenolol Allergy Other Verified 10/31/20 12:21 Social History household members: spouse Smoking Status: Current every day smoker substance use type: does not use Vital Signs Vital Signs Vital Signs: 03/15/21 10:05 Temperature 97.7 F L Temperature Source Oral Pulse Rate 68 Blood Pressure Source Monitor Blood Pressure Position Sitting Blood Pressure Location Right Arm Weight Body Mass Index (BMI) 30.3 Physical Exam Const alert, oriented x3, no apparent distress and well nourished General Appearance: cooperative and well developed Orientation / Consciousness: awake, oriented to person, oriented to place and oriented to time HEENT normocephalic and head/scalp atraumatic Head and Scalp: normal to inspection, normocephalic and atraumatic External Ear: external ears normal Eyes PERRL and EOMs intact bilaterally General Eye: normal appearance of both eyes Resp normal respiratory effort, normal air movement, no retractions and no use of accessory muscles Effort and Inspection: able to speak in complete sentences Extremity no calf tenderness Extremity Narrative: No significant swelling or edema are noted in the patient's lower extremities bilaterally. General Extremity: Negative for clubbing or cyanosis Skin Wound Narrative: The ulcerations in the right lower extremity are healed. The ulceration on the left posterior calf persists. It is superficial. There is no sign of infection or cellulitis. There is a moderate amount of bioburden. Dimensions are documented elsewhere. There is a small ulceration located on the left posterior ankle, which consists of a persisting scab/eschar. There is no sign of infection or cellulitis. Dimensions are documented elsewhere. Neuro oriented x3 and CN's II-XII intact bilaterally Sensorium / Orientation: awake, alert, oriented to person, oriented to place and oriented to time Psych Appearance: grossly normal and appropriate Attitude: calm Activity / Motor Behavior: appropriate eye contact Speech: normal speech Mood & Affect: euthymic mood Thought Process: normal thought process Thought Content: normal thought content Attention / Concentration: attention grossly intact Debridement Note Debridement Note Wound debrided: Left posterior calf Laterality: Left Type of Debridement: Excisional debridement Anesthesia Used: 5% Lidocaine Gel Depth: Down to and including healthy tissue and in the subcutaneous layer Percentage of wound debrided: 100 Instrument Used: 5mm curette Tissue Removed: Bioburden Severity: Fat Layer Exposed Amount of bleeding with debridement: Mild Bleeding Controlled with: Compression and gauze Patient tolerated procedure: Patient tolerated procedure well Post-Debridement Measurements and Additional Note: Post-Debridement Measurements/Treatment - Nurse 1 - General Ulcer Assessment Start: 03/01/21 09:46 Freq: Status: Active Protocol: MATTEO Activity Type Activity Date Activity User E-Sign Co-Sign Detail Recorded Client Recorded Date Recorded By Document 03/01/21 09:46 MARS [id number] 03/01/21 09:51 KR Document 03/15/21 10:05 MARS [id number] 03/15/21 10:07 KR 03/01/21 03/15/21 09:46 10:05 - Today's Visit Information Type of service Follow-up Visit Follow-up Visit (Physician/RADIO ENGINEERING TEACHER (Physician/RADIO ENGINEERING TEACHER ) ) Arrival Mode Ambulatory Ambulatory Transfer Assistance None Accompanied by Patient Identification Verified (Name & No Yes ) Patient Requires Transmission-Based No Precautions Height and Weight Body Mass Index (BMI) 30.3 30.3 BMI Classification Obese Obese Vital Signs Temperature (97.8 F-99.1 F) 96.5 F L 97.7 F L Temperature Source Temporal Oral Pulse Rate (60-100) 103 H 68 Pulse Location Monitor Monitor Respiratory Rate (12-18) 16 Respiratory rate source Observation Oxygen Delivery Method Room Air Blood Pressure (90/60-120/80) 138/69 H Blood Pressure Mean 92 Source Monitor Monitor Position Sitting Sitting Blood Pressure Location Right Arm History Since Last Visit- (Skip if this is Patient's initial visit) Have you changed medications since your No No last visit? Any new allergies or adverse reactions No No Had a fall/change in ADL's that may No No increase risk of falls Signs or symptoms of abuse and/or No No neglect since last visit Have you been in the hospital since your No No last visit? Has dressing in place as prescribed Yes Yes Has compression in place as prescribed Yes Yes Has offloadiing in place as prescribed N/A N/A Experienced any changes in pain level or No No management Left Footwear Regular Shoe Regular Shoe Right Footwear Regular Shoe Regular Shoe Pain Scale: 0-10 Numeric Is Patient Pain Free? Yes Yes WC - Nurse 1 - General Ulcer Measurement Start: 03/01/21 09:46 Freq: Status: Active Protocol: Activity Type Activity Date Activity User E-Sign Co-Sign Detail Recorded Client Recorded Date Recorded By Document 03/01/21 09:46 KR [id number] 03/01/21 09:51 KR Document 03/15/21 10:05 KR [id number] 03/15/21 10:07 KR 03/01/21 03/15/21 09:46 10:05 Wound Center Nurse 1 #4 Left Calf -Combined with other wound No -Current Size (cm) - Length 1 0.4 -Current Size (cm) - Width 1.2 0.4 -Current Size (cm) - Depth 0.2 0.1 -Total Square Cm 1.2 0.16 -Photo Taken No -Epithelialization None Present -Tunneling No -Undermining/Tunneling No -Circular Undermining No -Exudate Amt Medium Small -Exudate Type Serosanguineous Yellow/Green -Wound Margin Distinct, Outline Attached -Granulation Amt Medium (34-66%) Small (1-33%) -Granulation Quality Red Red -Slough/Fibrin Yes -Necrosis Amt Medium (34-66%) Small (1-33%) -Necrotic Tissue Type Adherent Slough Adherent Slough -Texture (Susie-wound Skin Appearance) Assessed Assessed, Scarring -Moisture (Susie-wound Skin Appearance) Assessed No Abnormality, Assessed -Color (Susie-wound Skin Appearance) Assessed No Abnormality, Assessed -Temperature (Susie-wound Skin No Abnormality No Abnormality Appearance) (Pt Warm) (Pt Warm) -Tenderness on Palpation (Susie-wound No No Skin Appearance) -Ulcer Cleansing Rinsed/ Rinsed/ Irrigated with Irrigated with Saline Saline -Foul Odor after Cleansing No No -Anesthetic Used 4% Lidocaine 4% Lidocaine Solution Solution,5% Lidocaine Gel #3 Right Calf -Combined with other wound No -Current Size (cm) - Length 2.5 -Current Size (cm) - Width 0.4 -Current Size (cm) - Depth 0.2 -Total Square Cm 1.00 -Photo Taken No -Epithelialization None Present -Tunneling No -Undermining/Tunneling No -Circular Undermining No -Exudate Amt Medium -Exudate Type Serosanguineous -Wound Margin Distinct, Outline Attached -Granulation Amt None Present (0 %) -Slough/Fibrin Yes -Necrosis Amt Large (67-100%) -Necrotic Tissue Type Eschar -Texture (Susie-wound Skin Appearance) Assessed, Scarring -Moisture (Susie-wound Skin Appearance) Assessed -Color (Susie-wound Skin Appearance) Assessed -Temperature (Susie-wound Skin No Abnormality Appearance) (Pt Warm) -Tenderness on Palpation (Susie-wound No Skin Appearance) -Ulcer Cleansing Rinsed/ Irrigated with Saline -Foul Odor after Cleansing No -Anesthetic Used 4% Lidocaine Solution #2 Left Ankle -Combined with other wound No -Current Size (cm) - Length 0.7 -Current Size (cm) - Width 1 -Current Size (cm) - Depth 0.2 -Total Square Cm 0.7 -Photo Taken No -Epithelialization None Present -Tunneling No -Undermining/Tunneling No -Circular Undermining No -Exudate Amt Medium -Exudate Type Serosanguineous -Wound Margin Distinct, Outline Attached -Granulation Amt Medium (34-66%) -Granulation Quality Red -Slough/Fibrin Yes -Necrosis Amt Small (1-33%) -Necrotic Tissue Type Adherent Slough -Texture (Susie-wound Skin Appearance) Assessed, Scarring -Moisture (Susie-wound Skin Appearance) Assessed -Color (Susie-wound Skin Appearance) Assessed -Temperature (Susie-wound Skin No Abnormality Appearance) (Pt Warm) -Tenderness on Palpation (Susie-wound No Skin Appearance) -Ulcer Cleansing Rinsed/ Irrigated with Saline -Foul Odor after Cleansing No -Anesthetic Used 4% Lidocaine Solution Lower Limb Edema Present Yes Right Calf (cm) 37.2 Right Ankle (cm) 23.9 Left Calf (cm) 37.1 Left Ankle (cm) 24.4 WC - Nurse 2 - General Ulcer CM Notes Start: 03/01/21 09:46 Freq: Status: Active Protocol: Activity Type Activity Date Activity User E-Sign Co-Sign Detail Recorded Client Recorded Date Recorded By Document 03/01/21 10:05 MW [id number] 03/01/21 10:11 MW 03/01/21 10:05 Wound Center Nurse 2 -Time 10:06 -Correct Patient Yes -Correct Side, Site, Position Yes -Correct Procedure Yes -Procedure Performed Yes -Type of Procedure Debridement -Clinical Debridement Subcutaneous -Tissue Removed Subcutaneous -Post Debridement (cm) - Length 1.2 -Post Debridement (cm) - Width 1.4 -Post Debridement (cm) - Depth 0.2 -Total Square (Post) (cm) 1.68 -Area of Debridement (cm) - Length 1.2 -Area of Debridement (cm) - Width 1.4 -Total Square (Area) (cm) 1.68 -Tunneling No -Undermining/Tunneling No -Circular Undermining No -Wound/Ulcer Outcome Not Healed -Ulcer Cleansing Rinsed/ Irrigated with Saline -Foul Odor after Cleansing No -Bioengineered Tissue No -Bleeding Controlled with Pressure -Offloading No -Treatment Response Procedure Tolerated Well -Debridement - Subq, 1st 20sq cm Yes #3 Right Calf -Time 10:06 -Correct Patient Yes -Correct Side, Site, Position Yes -Correct Procedure Yes -Procedure Performed Yes -Type of Procedure Debridement -Clinical Debridement Subcutaneous -Tissue Removed Subcutaneous -Post Debridement (cm) - Length 0.6 -Post Debridement (cm) - Width 0.7 -Post Debridement (cm) - Depth 0.2 -Total Square (Post) (cm) 0.42 -Area of Debridement (cm) - Length 0.6 -Area of Debridement (cm) - Width 0.7 -Total Square (Area) (cm) 0.42 -Tunneling No -Undermining/Tunneling No -Circular Undermining No -Wound/Ulcer Outcome Not Healed -Ulcer Cleansing Rinsed/ Irrigated with Saline -Foul Odor after Cleansing No -Bioengineered Tissue No -Bleeding Controlled with Pressure -Offloading No -Treatment Response Procedure Tolerated Well -Debridement - Subq, 1st 20sq cm No #2 Left Ankle -Time 10:07 -Correct Patient Yes -Correct Side, Site, Position Yes -Correct Procedure Yes -Procedure Performed Yes -Type of Procedure Debridement -Clinical Debridement Subcutaneous -Tissue Removed Subcutaneous -Post Debridement (cm) - Length 0.5 -Post Debridement (cm) - Width 1.1 -Post Debridement (cm) - Depth 0.2 -Total Square (Post) (cm) 0.55 -Area of Debridement (cm) - Length 0.5 -Area of Debridement (cm) - Width 1.1 -Total Square (Area) (cm) 0.55 -Tunneling No -Undermining/Tunneling No -Circular Undermining No -Wound/Ulcer Outcome Not Healed -Ulcer Cleansing Rinsed/ Irrigated with Saline -Foul Odor after Cleansing No -Bioengineered Tissue No -Bleeding Controlled with Pressure -Offloading No -Treatment Response Procedure Tolerated Well -Debridement - Subq, 1st 20sq cm No Pain Scale: 0-10 Numeric Is Patient Pain Free? Yes WC - Nurse 3 - General Ulcer D/C NN Start: 03/01/21 09:46 Freq: Status: Active Protocol: Activity Type Activity Date Activity User E-Sign Co-Sign Detail Recorded Client Recorded Date Recorded By Document 03/01/21 10:[address] [facility] [id number] 03/01/21 10:[address] [facility] Document 03/15/21 10:[address] [facility] [id number] 03/15/21 10:[address] [facility] 03/01/21 03/15/21 10:20 10:39 Wound Care Nurse 3 #4 Left Calf -Ulcer Cleansing Rinsed/ Rinsed/ Irrigated with Irrigated with Saline Saline -Foul Odor after Cleansing No No -Primary Dressing Applied Other Promogran Flavia Matter -Other Dressing promogran -Primary Dressing Covered/Secured with Dry Gauze, Dry Gauze, Secured with Secured with Tape Tape -Other Covering drsg per kr venture capitalist -Promogran Flavia Matter 1 #3 Right Calf -Ulcer Cleansing Rinsed/ Rinsed/ Irrigated with Irrigated with Saline Saline -Foul Odor after Cleansing No -Primary Dressing Applied Other Promogran Flavia Matter -Other Dressing promogran -Primary Dressing Covered/Secured with Dry Gauze, Dry Gauze, Secured with Secured with Tape Tape -Other Covering drsg per kr venture capitalist -Promogran Flavia Matter 0 #2 Left Ankle -Ulcer Cleansing Rinsed/ Rinsed/ Irrigated with Irrigated with Saline Saline -Foul Odor after Cleansing No No -Primary Dressing Applied Other Promogran Flavia Matter -Other Dressing promogran -Primary Dressing Covered/Secured with Dry Gauze, Dry Gauze & Secured with Roll Gauze, Tape Secured with Tape -Other Covering drsg per kr venture capitalist -Promogran Flavia Matter 0 AMBER -Other PT WILL APPLY kr venture capitalist applied WHEN GETS HOME pts own tubis double layer Treatment Response Procedure Procedure Tolerated Well Tolerated Well Pain Scale: 0-10 Numeric Is Patient Pain Free? Yes Yes WC - Visit Discharge Discharge Condition Stable Stable Ambulatory Status Cane Ambulatory Transportation Private Auto Accompanied by Assessment/Plan Assessment/Plan (1) Bilateral leg ulcer: CODE(S): L97.919 - Non-pressure chronic ulcer of unspecified part of right lower leg with unspecified severity; L97.929 - Non-pressure chronic ulcer of unspecified part of left lower leg with unspecified severity QUALIFIERS: Non-pressure ulcer stage: with fat layer exposed Qualified Code(s): L97.912 - Non-pressure chronic ulcer of unspecified part of right lower leg with fat layer exposed; L97.922 - Non-pressure chronic ulcer of unspecified part of left lower leg with fat layer exposed (2) Leg ulcer: CODE(S): L97.909 - Non-pressure chronic ulcer of unspecified part of unspecified lower leg with unspecified severity QUALIFIERS: Laterality: unspecified laterality Non-pressure ulcer stage: with fat layer exposed Qualified Code(s): L97.902 - Non-pressure chronic ulcer of unspecified part of unspecified lower leg with fat layer exposed (3) Malnutrition of mild degree: CODE(S): E44.1 - Mild protein-calorie malnutrition (4) Tricuspid valve regurgitation: CODE(S): I07.1 - Rheumatic tricuspid insufficiency (5) CHF (congestive heart failure): CODE(S): I50.9 - Heart failure, unspecified (6) Chronic kidney disease, stage III (moderate): CODE(S): N18.30 - Chronic kidney disease, stage 3 unspecified (7) Hyperlipidemia: CODE(S): E78.5 - Hyperlipidemia, unspecified (8) History of tobacco use disorder: CODE(S): Z87.891 - Personal history of nicotine dependence (9) Pulmonary hypertension: CODE(S): I27.20 - Pulmonary hypertension, unspecified (10) BECKIE (obstructive sleep apnea): CODE(S): G47.33 - Obstructive sleep apnea (adult) (pediatric) (11) History of stroke: CODE(S): Z86.73 - Personal history of transient ischemic attack (TIA), and cerebral infarction without residual deficits (12) History of alcohol abuse: CODE(S): F10.11 - Alcohol abuse, in remission (13) Afib: CODE(S): I48.91 - Unspecified atrial fibrillation (14) BPH (benign prostatic hyperplasia): (15) HTN (hypertension): CODE(S): I10 - Essential (primary) hypertension (16) Syncope: CODE(S): R55 - Syncope and collapse (17) Hypotension: CODE(S): I95.9 - Hypotension, unspecified (18) DM2 (diabetes mellitus, type 2): CODE(S): E11.9 - Type 2 diabetes mellitus without complications (19) Dyslipidemia: CODE(S): E78.5 - Hyperlipidemia, unspecified PLAN: This is an 85-year-old male who presented with ulcerations in both lower extremities. These were of several months duration, and appear to have developed while the patient's lower extremities were extremely swollen and edematous as result of congestive heart failure. The swelling and edema has now resolved as a result of aggressive medical therapy. The wounds in the left lower extremity persist at this time. We are to continue conservative treatment measures, which have been reviewed thoroughly with the patient and his , who is at the bedside. The patient is to continue sleeping flat at night. He is to elevate his legs to heart level even during daytime hours, as much as possible. Prolonged idle sitting has been discouraged. Activity has been encouraged. We are to continue compression to the lower extremities by means of Tubigrips, which will be doubled. A noninvasive lower extremity arterial study reveals normal arterial flow at ankle level bilaterally. 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 We are to continue the use of Promogran topically to the left posterior calf ulceration. This will be applied topically every other day, and the patient, and his , have been instructed in the appropriate means of application. The ulceration on the left posterior ankle is a dry eschar, and has been left undisturbed. It is anticipated that this will ultimately slough, revealing a healed ulceration subsequently. The patient has been advised to enhance his nutritional intake to enhance the healing process. Optimization of the patient's glycemic status has also been recommended, and the patient is collaborating with his primary care physician, Dr. Loyd, in this regard. The patient has undergone laboratory studies recently at the [facility], and results have been reviewed. Among the results, BUN was 35 and creatinine 1.54. Total protein was 7.0 and albumin 3.9. Patient has been encouraged to augment his nutritional intake. The patient's primary care physician, Dr. Loyd, continues to monitor the patient from metabolic standpoint on an ongoing basis. The patient was advised to return in 2 weeks for reassessment. However, he declines, indicating that he will be willing to return in 4 weeks, and not sooner. Total time: 29 minutes.
== END 2021-03-24 23:59 ==
LOC: WC 09:45
PROVIDERS: PCP Internal Medicine; Referring Provider Internal Medicine; Visit Provider Surgery
DX: E11.622 Type 2 diabetes mellitus with other skin ulcer (principal); L97.222 Non-pressure chronic ulcer of left calf with fat layer exposed; L97.212 Non-pressure chronic ulcer of right calf with fat layer exposed; L97.322 Non-pressure chronic ulcer of left ankle with fat layer exposed; M79.89 Other specified soft tissue disorders; R60.0 Localized edema; I13.0 Hypertensive heart and chronic kidney disease with heart failure and stage 1 through stage 4 chronic kidney disease, or unspecified chronic kidney disease; E11.22 Type 2 diabetes mellitus with diabetic chronic kidney disease; N18.30 Chronic kidney disease, stage 3 unspecified; I50.9 Heart failure, unspecified; I36.1 Nonrheumatic tricuspid (valve) insufficiency; I95.9 Hypotension, unspecified; I27.20 Pulmonary hypertension, unspecified; I48.91 Unspecified atrial fibrillation; E78.5 Hyperlipidemia, unspecified; N40.0 Benign prostatic hyperplasia without lower urinary tract symptoms; G47.33 Obstructive sleep apnea (adult) (pediatric); F17.200 Nicotine dependence, unspecified, uncomplicated; F10.11 Alcohol abuse, in remission; E66.9 Obesity, unspecified; Z68.30 Body mass index [BMI] 30.0-30.9, adult; Z79.01 Long term (current) use of anticoagulants; Z79.82 Long term (current) use of aspirin; Z79.84 Long term (current) use of oral hypoglycemic drugs; Z79.890 Hormone replacement therapy; Z79.899 Other long term (current) drug therapy; Z86.73 Personal history of transient ischemic attack (TIA), and cerebral infarction without residual deficits
CPT/HCPCS: 11042

== ENCOUNTER 2021-04-12 09:45 | Outpatient (RCR) | payer MEDICARE, OTHER, SELFPAY ==
[2021-03-25 00:28] VITALS: BP 138/69; PULSE 68; RESP 16; TEMP 36.5; BMI 30.3
[2021-04-12 09:49] VITALS: BP 115/44; PULSE 62; TEMP 36; BMI 30.3
--- NOTE | 2021-04-12 12:59 | HP.PCM_ITS ---
History of Present Illness Date of Service: 04/12/21 Chief Complaint: Bilateral leg ulcerations History of Wound: This is an 85-year-old male who presented with ulcerations on both lower extremities. The ulcerations occurred approximately 2 months prior to presentation. They are thought to have resulted from severe swelling and edema in both lower extremities which occurred as a result of exacerbation of congestive heart failure. In fact, the patient was hospitalized for several days at [facility] from October 31, 2020, to November 02, 2020, in treatment for congestive heart failure. As result of medical therapy, the patient lost over 20 pounds, and a diuresis was effected. As result, the swelling and edema in the patient's lower extremities resolved, though the resulting ulcerations have persisted. The patient and his had been applying bacitracin topically prior to coming to wound care center. He generally sleeps on a flat surface at night. However, he is not very active during daytime hours, often falling asleep in a semi-upright position during the day. The patient has multiple pre-existing medical problems, which are listed below. Recent laboratory results have been reviewed, and revealed the presence of chronic kidney disease, with elevated BUN and creatinine, and diminished protein and serum albumin levels. He is seeing his PCP for CHF management [facility] Medical History Atrial fibrillation Bilateral leg ulcer CHF (congestive heart failure) CHF exacerbation Chronic kidney disease, stage III (moderate) Congestive heart failure (CHF) Diabetes History of alcohol abuse History of alcohol use History of CVA (cerebrovascular accident) History of stroke History of tobacco use disorder Hyperlipemia Hyperlipidemia Hypertension Leg ulcer Macular degeneration Malnutrition of mild degree BECKIE (obstructive sleep apnea) Pulmonary hypertension Smoker Tricuspid valve regurgitation Home Medications PreserVision AREDS-2 1 ea PO DAILY 12/18/13 [History Last Taken Unknown] aspirin 81 mg PO DAILY@0800 12/18/13 [History Last Taken Unknown] atorvastatin 20 mg PO QHS 12/18/13 [History Last Taken Unknown] glimepiride 2 mg PO DINNER 12/18/13 [History Last Taken Unknown] losartan 150 mg PO DAILY 12/18/13 [History Last Taken Unknown] metformin 1,000 mg PO BIDCM 12/18/13 [History Last Taken Unknown] doxazosin [Cardura] 8 mg PO QHS 10/31/20 [History Last Taken Unknown] metoprolol tartrate 50 mg PO BID 10/31/20 [History Last Taken Unknown] verapamil 180 mg PO BID 10/31/20 [History Last Taken Unknown] warfarin 2.5 mg PO MO 10/31/20 [History Last Taken Unknown] warfarin 5 mg PO SUTUWETHFRSA 10/31/20 [History Last Taken Unknown] furosemide [Lasix] 40 mg PO BID #60 tab 11/02/20 [Rx Last Taken Unknown] Allergy/AdvReac Type Severity Reaction Status Date / Time atenolol Allergy Other Verified 10/31/20 12:21 Social History household members: spouse Smoking Status: Current every day smoker substance use type: does not use Vital Signs Vital Signs Vital Signs: 04/12/21 09:49 Temperature 96.8 F L Temperature Source Temporal Pulse Rate 62 Blood Pressure 115/44 L Blood Pressure Mean 67 Blood Pressure Source Monitor Blood Pressure Position Semi-Fowlers Blood Pressure Location Left Arm Weight Body Mass Index (BMI) 30.3 Physical Exam Const alert, oriented x3, no apparent distress and well nourished General Appearance: cooperative and well developed Orientation / Consciousness: awake, oriented to person, oriented to place and oriented to time HEENT normocephalic and head/scalp atraumatic Head and Scalp: normal to inspection, normocephalic and atraumatic External Ear: external ears normal Eyes PERRL and EOMs intact bilaterally General Eye: normal appearance of both eyes Resp normal respiratory effort, normal air movement, no retractions and no use of accessory muscles Effort and Inspection: able to speak in complete sentences Extremity no clubbing, cyanosis or edema and no calf tenderness Extremity Narrative: No significant swelling or edema are noted in the patient's lower extremities. General Extremity: Negative for clubbing or cyanosis Skin Wound Narrative: The ulceration on the left posterior calf persists. There is a moderate amount of bioburden. There is no sign of infection or cellulitis. Dimensions are documented elsewhere. The ulceration on the left posterior ankle now consists of a very superficial eschar, which was left undisturbed. Neuro oriented x3, CN's II-XII intact bilaterally and moves all extremities Sensorium / Orientation: awake, alert, oriented to person, oriented to place and oriented to time Psych Appearance: grossly normal and appropriate Attitude: calm Activity / Motor Behavior: appropriate eye contact Speech: normal speech Mood & Affect: euthymic mood Thought Process: normal thought process Thought Content: normal thought content Attention / Concentration: attention grossly intact Debridement Note Debridement Note Wound debrided: Left posterior calf Laterality: Left Type of Debridement: Excisional debridement Anesthesia Used: 5% Lidocaine Gel Depth: Down to and including healthy tissue and in the subcutaneous layer Percentage of wound debrided: 100 Instrument Used: 5mm curette Severity: Fat Layer Exposed Amount of bleeding with debridement: Mild Bleeding Controlled with: Compression and gauze Patient tolerated procedure: Patient tolerated procedure well Post-Debridement Measurements and Additional Note: Post-Debridement Measurements/Treatment - Nurse 1 - General Ulcer Assessment Start: 04/12/21 09:43 Freq: Status: Active Protocol: MATTEO Activity Type Activity Date Activity User E-Sign Co-Sign Detail Recorded Client Recorded Date Recorded By Document 04/12/21 09:49 MARS [id number] 04/12/21 09:51 MARS 04/12/21 09:49 - Today's Visit Information Type of service Follow-up Visit (Physician/[employer] ADMINISTRATOR ) Arrival Mode Ambulatory Patient Identification Verified (Name & Yes ) Height and Weight Body Mass Index (BMI) 30.3 BMI Classification Obese Vital Signs Temperature (97.8 F-99.1 F) 96.8 F L Temperature Source Temporal Pulse Rate (60-100) 62 Pulse Location Monitor Blood Pressure (90/60-120/80) 115/44 L Blood Pressure Mean 67 Source Monitor Position Semi-Fowlers Blood Pressure Location Left Arm History Since Last Visit- (Skip if this is Patient's initial visit) Have you changed medications since your No last visit? Any new allergies or adverse reactions No Had a fall/change in ADL's that may No increase risk of falls Signs or symptoms of abuse and/or No neglect since last visit Have you been in the hospital since your No last visit? Has dressing in place as prescribed No Has compression in place as prescribed N/A Has offloadiing in place as prescribed N/A Experienced any changes in pain level or No management Left Footwear Regular Shoe Right Footwear Regular Shoe Pain Scale: 0-10 Numeric Is Patient Pain Free? Yes - Nurse 1 - General Ulcer Measurement Start: 04/12/21 09:43 Freq: Status: Active Protocol: Activity Type Activity Date Activity User E-Sign Co-Sign Detail Recorded Client Recorded Date Recorded By Document 04/12/21 09:49 KR [id number] 04/12/21 09:51 KR 04/12/21 09:49 Wound Center Nurse 1 #4 Left Calf -Current Size (cm) - Length 0.5 -Current Size (cm) - Width 1 -Current Size (cm) - Depth 0.1 -Total Square Cm 0.5 -Exudate Amt Small -Exudate Type Serosanguineous -Wound Margin Distinct, Outline Attached -Granulation Amt Small (1-33%) -Granulation Quality Red -Necrosis Amt Small (1-33%) -Necrotic Tissue Type Adherent Slough -Texture (Susie-wound Skin Appearance) Assessed, Scarring -Moisture (Susie-wound Skin Appearance) No Abnormality, Assessed -Color (Susie-wound Skin Appearance) No Abnormality, Assessed -Temperature (Susie-wound Skin No Abnormality Appearance) (Pt Warm) -Tenderness on Palpation (Susie-wound No Skin Appearance) -Ulcer Cleansing Rinsed/ Irrigated with Saline -Foul Odor after Cleansing No -Anesthetic Used 4% Lidocaine Solution WC - Nurse 2 - General Ulcer CM Notes Start: 04/12/21 09:43 Freq: Status: Active Protocol: Activity Type Activity Date Activity User E-Sign Co-Sign Detail Recorded Client Recorded Date Recorded By Document 04/12/21 10:34 PL [id number] 04/12/21 10:35 PL 04/12/21 10:34 Wound Center Nurse 2 -Time 10:08 -Correct Patient Yes -Correct Side, Site, Position Yes -Correct Procedure Yes -Procedure Performed Yes -Type of Procedure Debridement -Clinical Debridement Subcutaneous -Tissue Removed Subcutaneous -Post Debridement (cm) - Length 0.5 -Post Debridement (cm) - Width 1.0 -Post Debridement (cm) - Depth 0.1 -Total Square (Post) (cm) 0.50 -Area of Debridement (cm) - Length 0.5 -Area of Debridement (cm) - Width 1.0 -Total Square (Area) (cm) 0.50 -Tunneling No -Undermining/Tunneling No -Circular Undermining No -Wound/Ulcer Outcome Not Healed -Ulcer Cleansing Rinsed/ Irrigated with Saline -Foul Odor after Cleansing No -Bioengineered Tissue No -Bleeding Controlled with Pressure -Treatment Response Procedure Tolerated Well -Debridement - Subq, 1st 20sq cm Yes Assessment/Plan Assessment/Plan (1) Leg ulcer: CODE(S): L97.909 - Non-pressure chronic ulcer of unspecified part of unspecified lower leg with unspecified severity QUALIFIERS: Laterality: unspecified laterality Non-pressure ulcer stage: with fat layer exposed Qualified Code(s): L97.902 - Non-pressure chronic ulcer of unspecified part of unspecified lower leg with fat layer exposed (2) Malnutrition of mild degree: CODE(S): E44.1 - Mild protein-calorie malnutrition (3) Tricuspid valve regurgitation: CODE(S): I07.1 - Rheumatic tricuspid insufficiency (4) CHF (congestive heart failure): CODE(S): I50.9 - Heart failure, unspecified (5) Chronic kidney disease, stage III (moderate): CODE(S): N18.30 - Chronic kidney disease, stage 3 unspecified (6) Hyperlipidemia: CODE(S): E78.5 - Hyperlipidemia, unspecified (7) History of tobacco use disorder: CODE(S): Z87.891 - Personal history of nicotine dependence (8) Pulmonary hypertension: CODE(S): I27.20 - Pulmonary hypertension, unspecified (9) BECKIE (obstructive sleep apnea): CODE(S): G47.33 - Obstructive sleep apnea (adult) (pediatric) (10) History of stroke: CODE(S): Z86.73 - Personal history of transient ischemic attack (TIA), and cerebral infarction without residual deficits (11) History of alcohol abuse: CODE(S): F10.11 - Alcohol abuse, in remission (12) BPH (benign prostatic hyperplasia): (13) HTN (hypertension): CODE(S): I10 - Essential (primary) hypertension (14) DM2 (diabetes mellitus, type 2): CODE(S): E11.9 - Type 2 diabetes mellitus without complications (15) Dyslipidemia: CODE(S): E78.5 - Hyperlipidemia, unspecified PLAN: This is an 85-year-old male who presented with ulcerations in both lower extremities. These were of several months duration, and appear to have developed while the patient's lower extremities were extremely swollen and edematous as result of congestive heart failure. The swelling and edema has now resolved as a result of aggressive medical therapy. The wounds in the left lower extremity persist at this time. We are to continue conservative treatment measures, which have been reviewed thoroughly with the patient and his , who is at the bedside. The patient is to continue sleeping flat at night. He is to elevate his legs to heart level even during daytime hours, as much as possible. Prolonged idle sitting has been discouraged. Activity has been encouraged. We are to continue compression to the lower extremities by means of Tubigrips, which will be doubled. A noninvasive lower extremity arterial study reveals normal arterial flow at ankle level bilaterally. 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 We are to continue the use of Promogran topically to the left posterior calf ulceration. This will be applied topically every other day, and the patient, and his , have been instructed in the appropriate means of application. The ulceration on the left posterior ankle is a dry eschar, and has been left undisturbed. It is anticipated that this will ultimately slough, revealing a healed ulceration subsequently. The patient has been advised to enhance his nutritional intake to enhance the healing process. Optimization of the patient's glycemic status has also been recommended, and the patient is collaborating with his primary care physician, Dr. Loyd, in this regard. The patient has undergone laboratory studies recently at the [facility], and results have been reviewed. Among the results, BUN was 35 and creatinine 1.54. Total protein was 7.0 and albumin 3.9. Patient has been encouraged to augment his nutritional intake. The patient's primary care physician, Dr. Loyd, continues to monitor the patient from metabolic standpoint on an ongoing basis. The patient was advised to return in 2 weeks for reassessment. However, he declines, indicating that he will be willing to return in 4 weeks, and not sooner. Total time: 28 minutes.
== END 2021-04-24 23:59 ==
LOC: WC 09:45
PROVIDERS: PCP Internal Medicine; Referring Provider Internal Medicine; Visit Provider Surgery
DX: E11.622 Type 2 diabetes mellitus with other skin ulcer (principal); L97.222 Non-pressure chronic ulcer of left calf with fat layer exposed; M79.89 Other specified soft tissue disorders; R60.0 Localized edema; I13.0 Hypertensive heart and chronic kidney disease with heart failure and stage 1 through stage 4 chronic kidney disease, or unspecified chronic kidney disease; I50.9 Heart failure, unspecified; E11.22 Type 2 diabetes mellitus with diabetic chronic kidney disease; N18.30 Chronic kidney disease, stage 3 unspecified; I48.91 Unspecified atrial fibrillation; I27.20 Pulmonary hypertension, unspecified; I36.1 Nonrheumatic tricuspid (valve) insufficiency; N40.0 Benign prostatic hyperplasia without lower urinary tract symptoms; E78.5 Hyperlipidemia, unspecified; F10.11 Alcohol abuse, in remission; G47.33 Obstructive sleep apnea (adult) (pediatric); F17.200 Nicotine dependence, unspecified, uncomplicated; E66.9 Obesity, unspecified; Z68.30 Body mass index [BMI] 30.0-30.9, adult; Z79.84 Long term (current) use of oral hypoglycemic drugs; Z79.01 Long term (current) use of anticoagulants; Z79.82 Long term (current) use of aspirin; Z79.899 Other long term (current) drug therapy; Z86.73 Personal history of transient ischemic attack (TIA), and cerebral infarction without residual deficits
CPT/HCPCS: 11042

== ENCOUNTER 2022-06-21 13:42 | Inpatient (IN) | payer MEDICARE, SELFPAY ==
[2022-06-21] VITALS (12 sets, daily range): BP systolic 115–160; BP diastolic 57–94; PULSE 80–109; RESP 17–26; TEMP 35.8–37; O2SAT 83–99; BMI 28.1; BMI 28.2
--- NOTE | 2022-06-21 14:27 | EDS_ITS ---
HPI History of Present Illness Chief Complaint: Shortness of Breath Narrative Narrative: 86-year-old male with history of CHF, COPD, atrial fibrillation on Coumadin presenting with shortness of breath. He states that the onset of the shortness of breath was about of last week. He states previously he was on 40 mg of Lasix several months ago after being in the hospital. He states that his primary care physician, Dr. Loyd, backed him back down to 20. Its been several months since he has had this issue of shortness of breath and CHF exacerbation. The patient states that he is been taking his 20 mg of Lasix. Normally he states he can walk around freely without too much shortness of breath, but states that now he can only walk to the bathroom and back and he is very dyspneic. He also states that he sleeping in his chair because he cannot lay back. He is coughing more than usual. He also feels as if he is wheezing. He does state that since the ID- pandemic he has pretty much stayed isolated in his home. He states he wears a mask everywhere that he goes. He does state that since he has staying a lot they do order a lot of fast food. He has not really been watching his salt intake. He states that he might of overdone it during the holiday and ate a lot of salty food. He admits to worsening lower extremity edema. He is not having any chest pain. He has not had a fever, chills, myalgias. He does not have nausea or vomiting. Patient does relate that he has still been smoking cigarettes. [facility] Medical History Atrial fibrillation Bilateral leg ulcer CHF (congestive heart failure) CHF exacerbation Chronic kidney disease, stage III (moderate) Congestive heart failure (CHF) Diabetes History of alcohol abuse History of alcohol use History of CVA (cerebrovascular accident) History of stroke History of tobacco use disorder Hyperlipemia Hyperlipidemia Hypertension Leg ulcer Macular degeneration Malnutrition of mild degree BECKIE (obstructive sleep apnea) Pulmonary hypertension Smoker Tricuspid valve regurgitation Home Medications atorvastatin 20 mg tablet 20 mg PO QHS CHOLESTEROL 12/18/13 [History Last Taken 06/20/22] losartan 100 mg tablet 150 mg PO DAILY BLOOD PRESSURE 12/18/13 [History Last Taken 06/21/22] vit C 250 mg-vit E 90 mg-zinc 40 mg-copper 1 [id number] capsule (PreserVision AREDS-2) 1 ea PO DAILY EYE HEALTH 12/18/13 [History Last Taken 06/21/22] metoprolol tartrate 50 mg tablet 50 mg PO BID BLOOD PRESSURE 10/31/20 [History Last Taken 06/21/22] verapamil 180 mg tablet,extended release 180 mg PO BID BLOOD PRESSURE 10/31/20 [History Last Taken 06/21/22] warfarin 2.5 mg tablet 2.5 mg PO [place] BLOOD THINNER 10/31/20 [History Last Taken 06/18/22] warfarin 5 mg tablet 5 mg PO MOTUWETHFRSA BLOOD THINNER 10/31/20 [History Last Taken 06/21/22] aspirin 81 mg tablet,delayed release 81 mg PO QODAY HEART HEALTH 06/21/22 [Histo ry Last Taken 06/21/22] doxazosin 4 mg tablet 4 mg PO QHS PROSTATE 06/21/22 [History Last Taken 06/20/22] furosemide 20 mg tablet 20 mg PO DAILY FLUID 06/21/22 [History Last Taken 06/21/22] glipizide 10 mg tablet, extended release 24 hr 10 mg PO DAILY DIABETES 06/21/22 [History Last Taken 06/21/22] losartan 50 mg tablet 50 mg PO DAILY BLOOD PRESSURE 06/21/22 [History Last Taken 06/21/22] metformin 500 mg tablet,extended release 24 hr 500 mg PO BID DIABETES 06/21/22 [History Last Taken 06/21/22] Allergy/AdvReac Type Severity Reaction Status Date / Time atenolol Allergy Other Verified 10/31/20 12:21 Family History (Updated 06/21/22 @ 17:[address] Jostin Richardson MD) Other Heart disease Hypertension Social History household members: spouse Smoking Status: Current every day smoker tobacco type: cigarettes substance use type: does not use ROS ROS ED Constitutional Constitutional ED: Denies chills or fever(s) Eyes Eyes: Denies change in vision or diplopia ENT ENT ED: Denies rhinorrhea or sore throat Cardiovascular Cardiovascular: Reports orthopnea; Denies chest pain or palpitations Respiratory/Chest Respiratory/Chest: Reports cough, dyspnea, dyspnea on exertion and orthopnea Gastrointestinal Gastrointestinal: Denies abdominal pain, nausea or vomiting Genitourinary Genitourinary ED: Denies dysuria or hematuria Musculoskeletal Musculoskeletal: Denies arthralgias or back pain Integumentary Denies abscess Neurologic Neurologic: Denies headache(s) or paresthesias Psychiatric Psychiatric: Denies anxiety or depression EXAM Physical Exam Const Vital Signs: 06/21/22 13:42 06/21/22 14:30 06/21/22 14:30 Temperature 96.5 F L 96.5 F L Temperature Source Temporal Temporal Pulse Rate 80 84 Respiratory Rate 20 H 17 Respiratory Effort Respiratory Depth Respiratory Pattern Blood Pressure 115/94 H 146/57 H Blood Pressure [BP] Blood Pressure Mean 101 86 Blood Pressure Mean [BP] Blood Pressure Source Blood Pressure Source [BP] Blood Pressure Position Blood Pressure Position [BP] Blood Pressure Location Blood Pressure Location [BP] Pulse Ox 88 83 96 Oxygen Delivery Method Room Air Room Air Nasal Cannula Oxygen Flow Rate (L/min) 4 06/21/22 14:30 06/21/22 14:30 06/21/22 14:43 Temperature Temperature Source Pulse Rate 87 Respiratory Rate 21 H Respiratory Effort Short of Breath Respiratory Depth Normal Respiratory Pattern Normal Tachypnea Blood Pressure Blood Pressure [BP] Blood Pressure Mean Blood Pressure Mean [BP] Blood Pressure Source Blood Pressure Source [BP] Blood Pressure Position Blood Pressure Position [BP] Blood Pressure Location Blood Pressure Location [BP] Pulse Ox 98 Oxygen Delivery Method Nasal Cannula Nasal Cannula Oxygen Flow Rate (L/min) 2.5 2.5 06/21/22 14:43 06/21/22 16:42 06/21/22 16:58 Temperature 98.0 F Temperature Source Oral Pulse Rate 106 H Respiratory Rate 20 H Respiratory Effort Respiratory Depth Respiratory Pattern Blood Pressure 139/76 H Blood Pressure [BP] Blood Pressure Mean 97 Blood Pressure Mean [BP] Blood Pressure Source Blood Pressure Source [BP] Blood Pressure Position Blood Pressure Position [BP] Blood Pressure Location Blood Pressure Location [BP] Pulse Ox 96 97 Oxygen Delivery Method Nasal Cannula Nasal Cannula Nasal Cannula Oxygen Flow Rate (L/min) 2 2 2 06/21/22 17:16 06/21/22 17:00 06/21/22 17:00 Temperature 97.9 F 97.9 F 97.9 F Temperature Source Oral Oral Oral Pulse Rate 106 H 106 H 106 H Respiratory Rate 18 18 18 Respiratory Effort Respiratory Depth Respiratory Pattern Blood Pressure 160/76 H 160/76 H Blood Pressure [BP] 160/76 H Blood Pressure Mean 104 104 Blood Pressure Mean [BP] 104 Blood Pressure Source Monitor Blood Pressure Source [BP] Monitor Blood Pressure Position Sitting Blood Pressure Position [BP] Sitting Blood Pressure Location Right Arm Blood Pressure Location [BP] Right Arm Pulse Ox 95 95 95 Oxygen Delivery Method Nasal Cannula Nasal Cannula Nasal Cannula Oxygen Flow Rate (L/min) 4 4 4 Positive well nourished General Appearance ED: NAD; Negative for pallor HEENT Reports moist mucous membranes atraumatic Eyes PERRL and EOMs intact bilaterally Neck no lymphadenopathy, supple and no meningeal signs Resp normal respiratory effort Auscultation: rales diffuse, rhonchi throughout and wheezes expiratory wheezes Cardio regular rate Rhythm: abnormal rhythm irregularly irregular GI non-tender Extremity General Extremety ED: Yes edema; Negative for tenderness General Extremity: edema Neuro oriented x3 and CN's II-XII intact bilaterally Sensorium / Orientation: alert Speech: speech normal Motor Exam: strength 5/5 throughout Psych mental status grossly normal Skin no wounds General Skin Exam: Negative for jaundice or pallor MDM MDM MDM Narrative Medical decision making narrative: Patient presenting with shortness of breath. He is describing dyspnea on exertion, orthopnea. He is only able to walk about 15 feet. He arrives hypoxic on room air. He does not usually require oxygen. He is not in respiratory distress and he is speaking in full sentences. He does have Rales, rhonchi, wheezing throughout all lung maldonado. Patient placed on 2 L of oxygen via nasal cannula. He was placed on the monitor patient will be treated with 40 mg of IV Lasix and breathing treatments as well as Solu-Medrol. EKG atrial fibrillation with a ventricular rate of 103 bpm. Currently his heart rate is 80. CBC within normal limits. BMP shows a glucose of 314 without anion gap. Creatinine 1.75 and just above baseline. INR normal. PT slightly prolonged. High-sensitivity phone is 15. BNP 142. Rapid COVID and influenza are negative. Chest x-ray on my interpretation shows no acute cardiopulmonary process and radiologist are persistent degrees. Patient presenting with a mixed picture of CHF and COPD and he was treated for both. I think since he is hypoxic down to 83% on room air requiring oxygen will need to be admitted. Discussed with hospitalist. Impression: 1. COPD exacerbation 2. CHF exacerbation 3. Hypoxia Lab Data Attestation: I reviewed the patient's lab results. Labs: Laboratory Results - last 24 hr 06/21/22 06/21/22 06/21/22 14:30 14:30 14:30 WBC 8.1 RBC 4.73 Hgb 14.0 Hct 41.9 MCV 88.6 MCH 29.6 MCHC 33.4 RDW Std Deviation 51.0 H RDW Coeff of Lennie 15.7 H Plt Count 153 MPV 11.0 Immature Gran % (Auto) 0.400 Neut % (Auto) 67.3 Lymph % (Auto) 20.8 [place] % (Auto) 10.2 H Eos % (Auto) 0.9 Baso % (Auto) 0.4 Absolute Neuts (auto) 5.5 Absolute Lymphs (auto) 1.69 Nucleated RBC % 0 PT 34.3 H INR 3.4 Sodium 140 Potassium 4.8 Chloride 102 Carbon Dioxide 30.0 Anion Gap 8 BUN 32 H Creatinine 1.75 H Estim Creat Clear Calc 32.44 Est GFR (MDRD) Af Amer 48 L Est GFR (MDRD) Non-Af 40 L BUN/Creatinine Ratio 18.3 Glucose 314 H Calcium 9.5 Troponin I High Sens 15 B-Natriuretic Peptide 06/21/22 06/21/22 14:30 17:20 WBC RBC Hgb Hct MCV MCH MCHC RDW Std Deviation RDW Coeff of Lennie Plt Count MPV Immature Gran % (Auto) Neut % (Auto) Lymph % (Auto) [place] % (Auto) Eos % (Auto) Baso % (Auto) Absolute Neuts (auto) Absolute Lymphs (auto) Nucleated RBC % PT INR Sodium Potassium Chloride Carbon Dioxide Anion Gap BUN Creatinine Estim Creat Clear Calc Est GFR (MDRD) Af Amer Est GFR (MDRD) Non-Af BUN/Creatinine Ratio Glucose Calcium Troponin I High Sens 15 B-Natriuretic Peptide 142.5 H Radiography Diagnostic Testing: Clinical Impression(s) from Imaging Studies Chest X-Ray 06/21/22 14:55 IMPRESSION: Degenerative changes, as described above. No demonstrated acute cardiopulmonary process. Electronically Signed: Sona Vera MD at 15:10 EST , Discharge Plan Disposition Disposition: Acute Care Hospital [facility] Discharge Date/Time: 06/21/22 16:49
[2022-06-21 14:42] LABS: Absolute Lymphocyte Count 1.69 X10^3/uL (0.83-4.51); Absolute Neutrophil Count 5.5 X10^3/uL (2.0-7.7); Basophil# 0.03 X10^3/uL; Basophil% 0.4 % (0-1); Eosinophil# 0.07 X10^3/uL; Eosinophils% 0.9 % (0-5); Hematocrit 41.9 % (40-54); Lymphocyte # 1.69 X10^3/ul (0.83-4.51); Lymphocyte % 20.8 % (19-41); Mean Corp Hgb Conc 33.4 g/dL (32-36); Mean Corpuscular Hgb 29.6 pg (27.0-32.0); Mean Corpuscular Volume 88.6 fL (80-94); Monocyte# 0.83 X10^3/uL; Monocyte% 10.2 % (0-10); NRBC Flagged by Analyzer 0 % (0-5); Neutrophil # 5.48 X10^3/uL (2.7-7.7); Neutrophil % 67.3 % (47-70); Platelet Count 153 K/mm3 (150-450); RBC Distribution Width CV 15.7 % (11.6-14.6); Red Blood Count 4.73 M/mm3 (4.6-6.2); White Blood Count 8.1 K/mm3 (4.4-11.0)
[2022-06-21] MEDS: Ipratropium/Albuterol Sulfate 3 ML AMPUL.NEB INHALATION ×2 (14:42→19:23)
[2022-06-21] MEDS: Albuterol 2.5 MG/3 ML VIAL.NEB. INHALATION (14:42)
[2022-06-21 14:48] LABS: International Normalized Ratio 3.4; Prothrombin Time (Protime)PT. 34.3 SECONDS (11.7-14.9)
[2022-06-21 14:52] LABS: BNP,B-Type NATRIURETIC PEPTIDE 142.5 pg/mL (0-100)
--- NOTE | 2022-06-21 14:55 | RAD_ITS ---
STUDY: X-RAY CHEST REASON FOR EXAM: Male, 86 years old. Chest pain TECHNIQUE: Single AP portable view of the chest. COMPARISON: October 31, 2020 chest x-ray FINDINGS: The lungs are clear and expanded. There is no demonstrated pleural abnormality. Normal size heart. Normal mediastinum and suzette. Normal visualized pulmonary arteries. There is atherosclerotic calcification of the aortic arch with tortuosity. There are diffuse degenerative changes of the visualized thoracic spine. Normal visualized ribs, clavicles, and shoulders. There is no demonstrated abnormality of the visualized soft tissue structures of the upper abdomen. RAD/Chest 1 View (Portable) IMPRESSION: Degenerative changes, as described above. No demonstrated acute cardiopulmonary process. Electronically Signed: Sona Vera MD at 15:10 EST ,
[2022-06-21 14:56] LABS: Anion Gap 8 (5-15); BUN 32 mg/dL (7-18); BUN/Creat Ratio 18.3 RATIO (10-20); Calcium,Total 9.5 mg/dL (8.5-10.1); Chloride 102 mmol/L (98-107); Creatinine, Serum 1.75 mg/dL (0.70-1.30); EST Glomerular Filtration Rate 40 mL/min (>60); Est Glom Filt Rate - Afr Amer 48 mL/min (>60); Estimated Creatinine Clearance 32.44 ml/min; Glucose 314 mg/dL (74-106); Potassium 4.8 mmol/L (3.5-5.1); Sodium Level 140 mmol/L (136-145); Troponin-I HS (w/2H Reflex) 15 pg/mL (3.0-78.0)
[2022-06-21] MEDS: MethylPREDNISolone 125 MG/2 ML Vial IV (15:08)
[2022-06-21] MEDS: Furosemide 40 MG/4 ML Vial IV ×2 (15:08→18:59)
--- NOTE | 2022-06-21 16:05 | NURSING ---
BALJIT BREWSTER CHF, COPD
[2022-06-21 16:36] LABS: Reflex Troponin-HS? (from REC) Y
[2022-06-21 17:49] LABS: Troponin-I HS 15 pg/mL (3.0-78.0)
--- NOTE | 2022-06-21 17:54 | HP.PCM.HOS_ITS ---
HPI - General General Date of Admission: 06/21/22 HPI Narrative LIV GAGNON, is a 86 M who presents to the hospital with shortness of breath. He says that he has been feeling short of breath for the last several days. He normally takes about 40 mg of Lasix but this was cut back to 20 and he try to get a hold of his PCP but was told to come to the ER. In the ER he was found to be hypoxic to 83% requiring 4 L nasal cannula. He did receive a dose of Lasix in the ED as well as a breathing treatment and a dose of steroids. He does have a history of CHF and possible pulmonary hypertension however we have no echoes in our system and chart review indicates a potential right-sided heart failure with a normal EF based on echo done at the [facility] which we cannot see. He is a smoker and likely has a component of COPD as well though is unsure as which 1 is more predominant. He denies any fevers or chills or recent sick contacts and that he and his have basically stayed at home since COVID started. He does continue to smoke and does not follow either really a diabetic diet or cardiac diet at home. FOR[facility]LY [facility] Medical History Atrial fibrillation Bilateral leg ulcer CHF (congestive heart failure) CHF exacerbation Chronic kidney disease, stage III (moderate) Congestive heart failure (CHF) Diabetes History of alcohol abuse History of alcohol use History of CVA (cerebrovascular accident) History of stroke History of tobacco use disorder Hyperlipemia Hyperlipidemia Hypertension Leg ulcer Macular degeneration Malnutrition of mild degree BECKIE (obstructive sleep apnea) Pulmonary hypertension Smoker Tricuspid valve regurgitation Home Medications atorvastatin 20 mg tablet 20 mg PO QHS CHOLESTEROL 12/18/13 [History Last Taken 06/20/22] losartan 100 mg tablet 150 mg PO DAILY BLOOD PRESSURE 12/18/13 [History Last Taken 06/21/22] vit C 250 mg-vit E 90 mg-zinc 40 mg-copper 1 [id number] capsule (PreserV ision AREDS-2) 1 ea PO DAILY EYE HEALTH 12/18/13 [History Last Taken 06/21/22] metoprolol tartrate 50 mg tablet 50 mg PO BID BLOOD PRESSURE 10/31/20 [History Last Taken 06/21/22] verapamil 180 mg tablet,extended release 180 mg PO BID BLOOD PRESSURE 10/31/20 [History Last Taken 06/21/22] warfarin 2.5 mg tablet 2.5 mg PO [place] BLOOD THINNER 10/31/20 [History Last Taken 06/18/22] warfarin 5 mg tablet 5 mg PO MOTUWETHFRSA BLOOD THINNER 10/31/20 [History Last Taken 06/21/22] aspirin 81 mg tablet,delayed release 81 mg PO QODAY HEART HEALTH 06/21/22 [History Last Taken 06/21/22] doxazosin 4 mg tablet 4 mg PO QHS PROSTATE 06/21/22 [History Last Taken 06/20/22] furosemide 20 mg tablet 20 mg PO DAILY FLUID 06/21/22 [History Last Taken 06/21/22] glipizide 10 mg tablet, extended release 24 hr 10 mg PO DAILY DIABETES 06/21/22 [History Last Taken 06/21/22] losartan 50 mg tablet 50 mg PO DAILY BLOOD PRESSURE 06/21/22 [History Last Taken 06/21/22] metformin 500 mg tablet,extended release 24 hr 500 mg PO BID DIABETES 06/21/22 [History Last Taken 06/21/22] Allergy/AdvReac Type Severity Reaction Status Date / Time atenolol Allergy Other Verified 10/31/20 12:21 Family History (Updated 06/21/22 @ 17:[address] Jostin Richardson MD) Other Heart disease Hypertension Surgical History no surgical history no surgical history Social History household members: spouse Smoking Status: Current every day smoker tobacco type: cigarettes substance use type: does not use ROS Constitutional Constitutional: Denies chills, fatigue, fever(s) or malaise Eyes Eyes: Denies blurry vision ENT HEENT: Denies headache(s) or nasal discharge Cardiovascular Cardiovascular: Reports orthopnea; Denies chest pain, dyspnea on exertion or syncope Respiratory/Chest Respiratory/Chest: Reports shortness of breath at rest; Denies cough or shortness of breath with exertion Gastrointestinal Gastrointestinal: Denies constipation, diarrhea, nausea or vomiting Genitourinary Genitourinary: Denies dysuria Neurologic Neurologic: Denies focal weakness, numbness or tremor(s) Psychiatric Psychiatric: Denies anxiety or depression Vital Signs Vital Signs Vital Signs: 06/21/22 13:42 06/21/22 14:30 06/21/22 14:30 Temperature 96.5 F L 96.5 F L Temperature Source Temporal Temporal Pulse Rate 80 84 Respiratory Rate 20 H 17 Respiratory Effort Respiratory Depth Respiratory Pattern Blood Pressure 115/94 H 146/57 H Blood Pressure [BP] Blood Pressure Mean 101 86 Blood Pressure Mean [BP] Blood Pressure Source [BP] Blood Pressure Position [BP] Blood Pressure Location [BP] Pulse Ox 88 83 96 Oxygen Delivery Method Room Air Room Air Nasal Cannula Oxygen Flow Rate (L/min) 4 06/21/22 14:30 06/21/22 14:30 06/21/22 14:43 Temperature Temperature Source Pulse Rate 87 Respiratory Rate 21 H Respiratory Effort Short of Breath Respiratory Depth Normal Respiratory Pattern Normal Tachypnea Blood Pressure Blood Pressure [BP] Blood Pressure Mean Blood Pressure Mean [BP] Blood Pressure Source [BP] Blood Pressure Position [BP] Blood Pressure Location [BP] Pulse Ox 98 Oxygen Delivery Method Nasal Cannula Nasal Cannula Oxygen Flow Rate (L/min) 2.5 2.5 06/21/22 14:43 06/21/22 16:42 06/21/22 16:58 Temperature 98.0 F Temperature Source Oral Pulse Rate 106 H Respiratory Rate 20 H Respiratory Effort Respiratory Depth Respiratory Pattern Blood Pressure 139/76 H Blood Pressure [BP] Blood Pressure Mean 97 Blood Pressure Mean [BP] Blood Pressure Source [BP] Blood Pressure Position [BP] Blood Pressure Location [BP] Pulse Ox 96 97 Oxygen Delivery Method Nasal Cannula Nasal Cannula Nasal Cannula Oxygen Flow Rate (L/min) 2 2 2 06/21/22 17:16 06/21/22 17:00 Temperature 97.9 F 97.9 F Temperature Source Oral Oral Pulse Rate 106 H 106 H Respiratory Rate 18 18 Respiratory Effort Respiratory Depth Respiratory Pattern Blood Pressure 160/76 H Blood Pressure [BP] 160/76 H Blood Pressure Mean 104 Blood Pressure Mean [BP] 104 Blood Pressure Source [BP] Monitor Blood Pressure Position [BP] Sitting Blood Pressure Location [BP] Right Arm Pulse Ox 95 95 Oxygen Delivery Method Nasal Cannula Nasal Cannula Oxygen Flow Rate (L/min) 4 4 Weight Weight: 196 lb 8 oz Body Mass Index (BMI) 28.2 Physical Exam Narrative General: Alert, Oriented x3, Cooperative, No apparent distress HEENT: Atraumatic, PERRLA, EOMI, Normocephalic Oral: Moist Mucosa Neck: Supple, No JVD Lungs: Diminished, Normal air movement, rhonchi, wheeze, No rales Cardiovascular: Tachycardic, Regular Rhythm, Normal S1, Normal S2, No murmurs Abdomen: Soft, Non Tender, Non-Distended, No Hepato-splenomegaly Extremities: No edema, Capillary Refill Less than 3 Seconds Skin: No rashes, No breakdown Musculoskeletal: No Tenderness to Palpation of Joints or Extremities Neurological: Cranial nerves II-XII grossly intact, Motor Exam 5/5 strength throughout, Sensory exam intact to light touch and pain Psych/Mental Status: Normal Affect, Appropriate Results Lab / Micro Data Result Diagrams: 06/21/22 14:30 06/21/22 14:30 Labs: Laboratory Results - last 24 hr 06/21/22 14:30: WBC 8.1, RBC 4.73, Hgb 14.0, Hct 41.9, MCV 88.6, MCH 29.6, MCHC 33.4, RDW Std Deviation 51.0 H, RDW Coeff of Lennie 15.7 H, Plt Count 153, MPV 11.0, Immature Gran % (Auto) 0.400, Neut % (Auto) 67.3, Lymph % (Auto) 20.8, [place] % (Auto) 10.2 H, Eos % (Auto) 0.9, Baso % (Auto) 0.4, Absolute Neuts (auto) 5.5, Absolute Lymphs (auto) 1.69, Nucleated RBC % 0 06/21/22 14:30: PT 34.3 H, INR 3.4 06/21/22 14:30: Sodium 140, Potassium 4.8, Chloride 102, Carbon Dioxide 30.0, Anion Gap 8, BUN 32 H, Creatinine 1.75 H, Estim Creat Clear Calc 32.44, Est GFR (MDRD) Af Amer 48 L, Est GFR (MDRD) Non-Af 40 L, BUN/Creatinine Ratio 18.3, Glucose 314 H, Calcium 9.5, Troponin I High Sens 15 06/21/22 14:30: B-Natriuretic Peptide 142.5 H 06/21/22 17:20: Troponin I High Sens 15 Micro: Microbiology 06/21/22 15:20 Nasal Secretion SARS-CoV-2 & FLU Antigen (Rapid) - Final Radiology Impression Chest X-Ray 06/21/22 14:55 IMPRESSION: Degenerative changes, as described above. No demonstrated acute cardiopulmonary process. Electronically Signed: Sona Vera MD at 15:10 EST , Assessment & Plan Assessment/Plan (1) CHF exacerbation: (2) Acute respiratory failure with hypoxia: PLAN: Plan 1. Acute hypoxic respiratory failure secondary to CHF exacerbation versus COPD exacerbation/chronic A. fib/HTN/HLD/possible pulmonary hypertension ? We will proceed with obtaining an echo ? Continue with twice daily Lasix ? We will continue with steroids as well as duo nebs ? He is currently on 4 L nasal cannula, will place him on a fluid restriction as well as daily weights ? Previous echo at [facility] was thought to contain right-sided failure unfortunately unable to access this information ? Can resume his home blood pressure medications as well as a statin ? Continue with his Coumadin, INR is 3.4, will monitor and make adjustments as necessary ? BNP is only slightly elevated, troponin is unremarkable 2. DM2/CKD 3a ? We will hold his oral medications and place him on sliding scale insulin ? Accu-Cheks AC at bedtime ? We will make adjustments as necessary ? Unlikely to follow dietary recommendations on discharge ? We will monitor his renal function, it is near baseline DVT: Coumadin Charges/Coding Visit Charges Inpatient E&M: 81906 Init Hosp L3
--- NOTE | 2022-06-21 17:57 | ECHOD_ITS ---
Reason For Study: [facility] Procedure This was a 2D Doppler, Color Flow transthoracic echocardiogram. Technically difficult study,. Exam performed portable in patient room. Left Ventricle Normal size and thickness. The left ventricular ejection fraction is 55 %. Unable to assess diastolic function based on available data. Right Ventricle Mildly dilated right ventricle. Mild to moderate global right ventricular systolic dysfunction. Atria The left atrium is mildly enlarged. The right atrium is severely enlarged. Mitral Valve Trivial mitral valve insufficiency. Tricuspid Valve Moderate (2+) tricuspid valve insufficiency. Right ventricular systolic pressure estimated to be 55 mmHg. Moderate pulmonary hypertension. Aortic Valve Aortic sclerosis, no stenosis. Pulmonic Valve The pulmonic valve is not well visualized. Great Vessels Normal sized aortic root. Pericardium/Pleural No pericardial effusion. MMode/2D Measurements & Calculations LVOT diam: 2.0 cm LVOT area: 3.2 cm2 Doppler Measurements & Calculations MV E max jonathan: 39.5 cm/sec Lat Peak E' Jonathan: 14.7 cm/sec Med Peak E' Jonathan: 9.0 cm/sec MV A max jonathan: 94.7 cm/sec E/E' lat: 2.7 E/E' med: 4.4 MV E/A: 0.42 MV V2 max: 105.1 cm/sec MV P1/2t max jonathan: 39.5 cm/sec Ao V2 max: 94.3 cm/sec MV max P.5 mmHg MV P1/2t: 28.8 msec Ao max P.6 mmHg MV V2 mean: 66.1 cm/sec Ao V2 mean: 62.3 cm/sec MV mean P.0 mmHg MV dec slope: 401.8 cm/sec2 Ao mean P.8 mmHg MV V2 VTI: 22.3 cm MVA(P1/2t): 7.6 cm2 Ao V2 VTI: 16.6 cm AV (velocity ratio): 0.96 MVA(VTI): 2.3 cm2 RADHA(I,D): 3.1 cm2 RADHA(V,D): 2.6 cm2 LV V1 max: 78.3 cm/sec SV(LVOT): 50.7 ml PA V2 max: 77.5 cm/sec LV V1 max P.5 mmHg PA V2 mean: 55.8 cm/sec LV V1 mean P.5 mmHg LV V1 mean: 59.1 cm/sec LV V1 VTI: 15.9 cm TR max jonathan: 336.6 cm/sec TR max P.3 mmHg ECHO/Echo Complete Interpretation Summary Technically difficult study, The left ventricular ejection fraction is 55 %. Mildly dilated right ventricle. Mild to moderate global right ventricular systolic dysfunction. The left atrium is mildly enlarged. The right atrium is severely enlarged. Moderate (2+) tricuspid valve insufficiency. Right ventricular systolic pressure estimated to be 55 mmHg. Moderate pulmonary hypertension. Ordering Physician: Jostin Richardson Referring Physician: Carl Loyd M.D. Performed By: Velvet Briones RCS
--- NOTE | 2022-06-21 18:51 | NURSING ---
Emergency documentation initiated at 06/21 @ 1800.
[2022-06-21] MEDS: Atorvastatin Calcium 20 MG Tablet PO (21:44)
[2022-06-21] MEDS: Doxazosin 4 MG Tablet PO (21:44)
[2022-06-21] MEDS: Metoprolol Tartrate 50 MG Tablet PO (21:44)
[2022-06-21] MEDS: Verapamil SR 180 MG CAPSULE PO (21:44)
[2022-06-21] MEDS: Insulin Lispro 100 UNIT/ML INSULN.PEN SC (21:45)
[2022-06-21 23:15] LABS: Bedside Glucose 427 mg/dL (74-106)
[2022-06-22] VITALS (17 sets, daily range): BP systolic 106–132; BP diastolic 54–93; PULSE 88–107; RESP 16–18; TEMP 36.3–37; O2SAT 93–100
[2022-06-22] MEDS: Insulin Lispro 100 UNIT/ML INSULN.PEN SC ×4 (06:26→21:41)
[2022-06-22 07:24] LABS: Absolute Lymphocyte Count 0.86 X10^3/uL (0.83-4.51); Absolute Neutrophil Count 7.2 X10^3/uL (2.0-7.7); Basophil# 0.01 X10^3/uL; Basophil% 0.1 % (0-1); Hematocrit 40.4 % (40-54); Hemoglobin 13.3 g/dL (13.0-16.5); Lymphocyte # 0.86 X10^3/ul (0.83-4.51); Lymphocyte % 10.1 % (19-41); Mean Corp Hgb Conc 32.9 g/dL (32-36); Mean Corpuscular Hgb 28.5 pg (27.0-32.0); Mean Corpuscular Volume 86.5 fL (80-94); Mean Platelet Vol. 11.2 fl (6.2-12.0); Monocyte# 0.42 X10^3/uL; Monocyte% 4.9 % (0-10); NRBC Flagged by Analyzer 0 % (0-5); Neutrophil # 7.19 X10^3/uL (2.7-7.7); Neutrophil % 84.5 % (47-70); Platelet Count 162 K/mm3 (150-450); RBC Distribution Width CV 15.4 % (11.6-14.6); RBC Distribution Width SD 49.3 fl (35.1-43.9); Red Blood Count 4.67 M/mm3 (4.6-6.2); White Blood Count 8.5 K/mm3 (4.4-11.0)
[2022-06-22 07:25] LABS: Bedside Glucose 328 mg/dL (74-106)
[2022-06-22 07:50] LABS: Anion Gap 5 (5-15); BUN 43 mg/dL (7-18); BUN/Creat Ratio 21.8 RATIO (10-20); Chloride 101 mmol/L (98-107); Creatinine, Serum 1.97 mg/dL (0.70-1.30); EST Glomerular Filtration Rate 35 mL/min (>60); Est Glom Filt Rate - Afr Amer 42 mL/min (>60); Estimated Creatinine Clearance 28.82 ml/min; Glucose 330 mg/dL (74-106); Potassium 5.2 mmol/L (3.5-5.1); Sodium Level 136 mmol/L (136-145)
[2022-06-22 08:43] LABS: International Normalized Ratio 3.2; Prothrombin Time (Protime)PT. 32.2 SECONDS (11.7-14.9)
--- NOTE | 2022-06-22 09:58 | CASEMGMT ---
CARLOS PATION Assessment: Face to Face with pt for initial transition planning/care coordination assessment. CARLOS PATINO introduced self and role at [facility], pt voices understanding and consents to assessment. Pt is sitting on the edge of the bed. Appears to be in no distress. Pt is A/O x4 and answers all questions appropriately at this time. Care providers, pharmacy, and demographics verified/updated. Admitting Dx: CHF Exacerbation. PCP: Carl Loyd. Specialists: Ignacio, Pulmonology. Pt states he sees a die stamper too but can't recall the provider's name. [facility]erred [facility]acy[facility]. Insurance: Anthem Medicare. Prescription Benefit: Yes. LW/HPOA: Pt reports having a LW/HPOA with being HPOA. LNOK: Maya Shetty, . Living Arrangements: Pt lives in a two story home with six steps to enter. Unclear if there is a railing or not. Pt and spent much of their time in [place]. However, since the pandemic, they've mostly remained home. Pt reports being I in ADLs. Transportation: Pt drives self and denies concerns with transportation. Pt's is able to drive as well. DME/HHC/SNF: Pt denies having or needing any DME. Pt currently is wearing oxygen but denies having it at home. Pt checks blood glucose levels when I think of it. Pt reports having necessary DM supplies. Pt denies any HHC currently or in the past. Pt denies any SNF stays in the past. Pt states no concerns with going home at time of dc. Pt states no further concerns/needs. CM to follow. Advised pt to ask CM if any further question/concerns/needs arise, voices understanding. Pt Goal: Home. No needs. Plan:? TBD.
[2022-06-22] MEDS: 0.9% Saline Lock 10 ML Syringe IV (11:38)
[2022-06-22] MEDS: Furosemide 40 MG Tablet PO (11:49)
[2022-06-22] MEDS: Metoprolol Tartrate 50 MG Tablet PO ×2 (11:49→21:41)
[2022-06-22 12:50] LABS: Bedside Glucose 346 mg/dL (74-106)
--- NOTE | 2022-06-22 17:35 | PN.HOSP_ITS ---
Subjective Subjective Patient states he is feeling better overall with decreased shortness of breath. He states he has a long history of tobacco abuse and currently is now smoking about half a pack a day. Objective Data Objective Data Vital Signs: Vital Signs Temp Pulse Resp BP Pulse Ox O2 Del Method O2 Flow Rate 98.6 F 107 H 16 107/77 97 Nasal Cannula 4 06/22/22 15:21 06/22/22 15:21 06/22/22 15:21 06/22/22 15:21 06/22/22 15:21 06/22/22 15:21 06/22/22 15:21 Oxygen Flow Rate (L/min) 4 Oxygen Delivery Method Nasal Cannula Weight: 85 kg Body Mass Index (BMI) 28.2 Intake & Output: Intake and Output for Last 24 Hours 06/20/22 06/21/22 06/22/22 23:59 23:59 23:59 Intake Total 120 / 120 Balance 120 / 120 Lab / Micro Data Result Diagrams: 06/22/22 06:10 06/22/22 06:10 Labs: Laboratory Results - last 24 hr 06/21/22 17:20: Troponin I High Sens 15 06/21/22 21:32: POC Glucose 427 H 06/22/22 06:10: WBC 8.5, RBC 4.67, Hgb 13.3, Hct 40.4, MCV 86.5, MCH 28.5, MCHC 32.9, RDW Std Deviation 49.3 H, RDW Coeff of Lennie 15.4 H, Plt Count 162, MPV 11.2, Immature Gran % (Auto) 0.400, Neut % (Auto) 84.5 H, Lymph % (Auto) 10.1 L, [place] % (Auto) 4.9, Eos % (Auto) 0.0, Baso % (Auto) 0.1, Absolute Neuts (auto) 7.2, Absolute Lymphs (auto) 0.86, Nucleated RBC % 0 06/22/22 06:10: PT 32.2 H, INR 3.2 06/22/22 06:10: Sodium 136, Potassium 5.2 H, Chloride 101, Carbon Dioxide 30.0, Anion Gap 5, BUN 43 H, Creatinine 1.97 H, Estim Creat Clear Calc 28.82, Est GFR (MDRD) Af Amer 42 L, Est GFR (MDRD) Non-Af 35 L, BUN/Creatinine Ratio 21.8 H, Glucose 330 H, Calcium 9.0 06/22/22 06:25: POC Glucose 328 H 06/22/22 11:52: POC Glucose 346 H Micro: Microbiology 06/22/22 07:41 Mucosa - Nasopharyngeal Respiratory Panel (PCR) - Final Rhinovirus 06/21/22 15:20 Nasal Secretion SARS-CoV-2 & FLU Antigen (Rapid) - Final Radiography Diagnostic Testing: Radiology Impression Echocardiogram 06/21/22 17:57 Interpretation Summary Technically difficult study, The left ventricular ejection fraction is 55 %. Mildly dilated right ventricle. Mild to moderate global right ventricular systolic dysfunction. The left atrium is mildly enlarged. The right atrium is severely enlarged. Moderate (2+) tricuspid valve insufficiency. Right ventricular systolic pressure estimated to be 55 mmHg. Moderate pulmonary hypertension. Ordering Physician: Jostin Richardson Referring Physician: Carl Loyd M.D. Performed By: Velvet Briones RCS Physical Exam Const alert, oriented x3, no apparent distress and well nourished Constitutional Narrative: Elderly white male sitting up on the edge of the bed, appears comfortable nontoxic, currently on 6 L nasal cannula but no signs of respiratory distress, very friendly and pleasant HEENT head/scalp atraumatic and moist oral mucous membranes HEENT Narrative: Dentition is poor, no thrush, Mallampati 2 Head and Scalp: normocephalic Resp normal respiratory effort, no retractions and no use of accessory muscles Resp Narrative: Scattered diffuse end expiratory wheezes, no tachypnea or signs of distress, currently on 6 L nasal cannula Auscultation: wheezes; Negative for crackles or rhonchi Cardio regular rhythm, S1 normal heart sound, S2 normal heart sound, no murmurs, no rub, no gallops, no clicks and no JVD Cardio Narrative: Mild tachycardia GI normal to inspection, nondistended, normoactive bowel sounds, soft to palpation and non-tender Extremity no clubbing, cyanosis or edema Extremity Narrative: 2+ pedal pulses Neuro oriented x3, moves all extremities and no focal motor deficits Speech: speech normal Psych affect normal Psych Narrative: Extremely pleasant Assessment & Plan Assessment/Plan (1) Acute respiratory failure with hypoxia: (2) Elevated serum creatinine: (3) Hyperkalemia: (4) Hyperglycemia: PLAN: Plan Acute hypoxic respiratory secondary to acute exacerbation of COPD due to rhin ovirus -Patient was tachypneic and hypoxic compared to baseline in the emergency department with oxygen saturations at 84% requiring 4 L nasal cannula -Patient is not O2 dependent at baseline -There was some initial concern that this might be related to exacerbation of heart failure however there does not seem to be a component of that at this time and I feel that this is most likely all related to acute exacerbation of COPD -COVID and flu are negative -Respiratory panel showed rhinovirus -Currently on 6 L supplemental oxygen via nasal cannula -Wean oxygen as able -Continue IV steroids -As needed and scheduled DuoNebs -Discontinue Lasix -Incentive spirometer -Mucinex -Add Acapella Elevated serum creatinine -Suspect related to overdiuresis -Stop diuretics -We will give gentle hydration over the next 12 hours with normal saline -Repeat lab in a.m. -Baseline serum creatinine is unclear as he has had no recent lab work done at this hospital in the last year -Hold home losartan Hyperkalemia -Mild at 5.2 -Likely related to his renal function -Repeat lab in a.m. and gentle hydration -Hold home losartan and patient is not on any supplemental potassium DM-2 with hyperglycemia -Only on glipizide and metformin at home-on hold -Increase sliding scale dose to high-dose -Continue Accu-Cheks -Check hemoglobin A1c as I suspect he might be uncontrolled at baseline -May need basal insulin if blood sugars remain markedly elevated despite increase in sliding scale Hypertension -Hold losartan and verapamil as patient clinically appears dry -We will continue metoprolol with hold parameters as patient does have history of atrial fibrillation History of atrial fibrillation -Currently normal sinus rhythm -Continue metoprolol -Hold verapamil as pressures are low -Continue Coumadin -A.m. INR is 3.2 next-repeat INR in a.m. PAH -Who group 3 -Restart diuretics when appropriate HFpEF -Echo done today shows an EF of 55% with a mildly dilated RV and mild to moderate global right ventricular systolic dysfunction, right atrium is severely enlarged and left atrium is mildly enlarged, moderate tricuspid valve insufficiency with right ventricular systolic pressures of 55 mmHg -Currently compensated and actually clinically dry -Lasix on hold History of stroke -Continue aspirin Hyperlipidemia -Continue atorvastatin BPH -Continue doxazosin Tobacco abuse -Patient still smoking about a half a pack a day -Recommend cessation -Nicotine replacement if needed History of alcohol abuse -Remote DVT prophylaxis -Full anticoagulated CODE STATUS -DNR CCA with no intubation Charges/Coding Visit Charges Inpatient E&M: 21227 Subs Hosp L2
[2022-06-22] MEDS: 0.9% Normal Saline 1,000 ML 75 ML IV (18:13)
[2022-06-22 20:01] LABS: Bedside Glucose 317 mg/dL (74-106)
[2022-06-22] MEDS: Ipratropium/Albuterol Sulfate 3 ML AMPUL.NEB INHALATION (20:51)
[2022-06-22] MEDS: Atorvastatin Calcium 20 MG Tablet PO (21:41)
[2022-06-22] MEDS: Doxazosin 4 MG Tablet PO (21:41)
[2022-06-23] VITALS (16 sets, daily range): BP systolic 125–150; BP diastolic 65–74; PULSE 89–110; RESP 16–20; TEMP 36.3–36.6; O2SAT 88–96
[2022-06-23 01:10] LABS: Bedside Glucose 309 mg/dL (74-106)
[2022-06-23] MEDS: Ipratropium/Albuterol Sulfate 3 ML AMPUL.NEB INHALATION ×4 (06:55→19:37)
[2022-06-23 07:07] LABS: Absolute Lymphocyte Count 1.17 X10^3/uL (0.83-4.51); Absolute Neutrophil Count 12.1 X10^3/uL (2.0-7.7); Basophil# 0.01 X10^3/uL; Basophil% 0.1 % (0-1); Eosinophil# 0.01 X10^3/uL; Eosinophils% 0.1 % (0-5); Hematocrit 41.7 % (40-54); Hemoglobin 13.9 g/dL (13.0-16.5); Lymphocyte # 1.17 X10^3/ul (0.83-4.51); Lymphocyte % 8.5 % (19-41); Mean Corp Hgb Conc 33.3 g/dL (32-36); Mean Corpuscular Hgb 29.2 pg (27.0-32.0); Mean Corpuscular Volume 87.6 fL (80-94); Mean Platelet Vol. 10.7 fl (6.2-12.0); Monocyte% 2.9 % (0-10); NRBC Flagged by Analyzer 0 % (0-5); Neutrophil # 12.08 X10^3/uL (2.7-7.7); Neutrophil % 87.8 % (47-70); Platelet Count 178 K/mm3 (150-450); RBC Distribution Width CV 15.2 % (11.6-14.6); RBC Distribution Width SD 48.8 fl (35.1-43.9); Red Blood Count 4.76 M/mm3 (4.6-6.2); White Blood Count 13.8 K/mm3 (4.4-11.0)
[2022-06-23] MEDS: Insulin Lispro 100 UNIT/ML INSULN.PEN SC ×4 (07:07→20:39)
[2022-06-23 07:17] LABS: International Normalized Ratio 2.3; Prothrombin Time (Protime)PT. 24.6 SECONDS (11.7-14.9)
[2022-06-23 07:30] LABS: Bedside Glucose 250 mg/dL (74-106)
[2022-06-23 07:48] LABS: Anion Gap 5 (5-15); BUN 57 mg/dL (7-18); BUN/Creat Ratio 34.3 RATIO (10-20); Calcium,Total 8.8 mg/dL (8.5-10.1); Chloride 101 mmol/L (98-107); Creatinine, Serum 1.66 mg/dL (0.70-1.30); EST Glomerular Filtration Rate 42 mL/min (>60); Est Glom Filt Rate - Afr Amer 51 mL/min (>60); Glucose 228 mg/dL (74-106); Magnesium 2.3 mg/dL (1.6-2.6); Phosphorus 4.3 mg/dL (2.5-4.9); Sodium Level 133 mmol/L (136-145); Thyroid Stim Hormone (TSH) 1.11 uIU/mL (0.358-3.74)
[2022-06-23 08:45] LABS: Hemoglobin A1c 8.7 % (3.8-5.6)
[2022-06-23] MEDS: 0.9% Saline Lock 10 ML Syringe IV ×3 (10:28→20:39)
[2022-06-23] MEDS: Metoprolol Tartrate 50 MG Tablet PO ×2 (10:28→20:38)
[2022-06-23] MEDS: Verapamil SR 180 MG CAPSULE PO ×2 (10:30→20:38)
[2022-06-23] MEDS: Aspirin E.C. 81 MG Tablet PO (10:30)
[2022-06-23] MEDS: Insulin Glargine-YFGN 100 UNIT/ML Pen 10 UNIT SC (11:45)
[2022-06-23 13:20] LABS: Bedside Glucose 433 mg/dL (74-106)
--- NOTE | 2022-06-23 16:59 | PN.HOSP_ITS ---
Subjective Subjective Patient states he is feeling better. Still requiring supplemental oxygen with end expiratory wheezes on exam. Is anxious to go home however I did discuss with him that we may be able to consider this tomorrow depending on how he does clinically but he would likely need to go home and oxygen. Objective Data Objective Data Vital Signs: Vital Signs Temp Pulse Resp BP Pulse Ox O2 Del Method O2 Flow Rate 97.3 F L 89 18 150/65 H 88 Room Air 2 06/23/22 10:24 06/23/22 15:00 06/23/22 15:00 06/23/22 10:28 06/23/22 10:44 06/23/22 10:44 06/23/22 10:24 Oxygen Flow Rate (L/min) 2 Oxygen Delivery Method Room Air Weight: 85.9 kg Body Mass Index (BMI) 28.2 Intake & Output: Intake and Output for Last 24 Hours 06/21/22 06/22/22 06/23/22 23:59 23:59 23:59 Intake Total 120 / 120 660 / 660 1240 / 1240 Balance 120 / 120 660 / 660 1240 / 1240 Lab / Micro Data Result Diagrams: 06/23/22 06:48 06/23/22 06:48 Labs: Laboratory Results - last 24 hr 06/22/22 18:17: POC Glucose 317 H 06/22/22 21:34: POC Glucose 309 H 06/23/22 06:48: PT 24.6 H, INR 2.3 06/23/22 06:48: WBC 13.8 H, RBC 4.76, Hgb 13.9, Hct 41.7, MCV 87.6, MCH 29.2, MCHC 33.3, RDW Std Deviation 48.8 H, RDW Coeff of Lennie 15.2 H, Plt Count 178, MPV 10.7, Immature Gran % (Auto) 0.600, Neut % (Auto) 87.8 H, Lymph % (Auto) 8.5 L, [place] % (Auto) 2.9, Eos % (Auto) 0.1, Baso % (Auto) 0.1, Absolute Neuts (auto) 12.1 H, Absolute Lymphs (auto) 1.17, Nucleated RBC % 0 06/23/22 06:48: Sodium 133 L, Potassium 5.0, Chloride 101, Carbon Dioxide 27.0, Anion Gap 5, BUN 57 H, Creatinine 1.66 H, Estim Creat Clear Calc 34.20, Est GFR (MDRD) Af Amer 51 L, Est GFR (MDRD) Non-Af 42 L, BUN/Creatinine Ratio 34.3 H, Glucose 228 H, Calcium 8.8, Phosphorus 4.3, Magnesium 2.3, TSH 1.11 06/23/22 06:48: Hemoglobin A1c 8.7 H 06/23/22 07:05: POC Glucose 250 H 06/23/22 11:43: POC Glucose 433 H Micro: Microbiology 06/22/22 07:41 Mucosa - Nasopharyngeal Respiratory Panel (PCR) - Final Rhinovirus 06/21/22 15:20 Nasal Secretion SARS-CoV-2 & FLU Antigen (Rapid) - Final Physical Exam Const alert, oriented x3, no apparent distress and well nourished Constitutional Narrative: Elderly white male sitting up in a chair at the bedside, appears comfortable nontoxic, currently on 2 L nasal cannula but no signs of respiratory distress, very friendly and pleasant HEENT head/scalp atraumatic and moist oral mucous membranes HEENT Narrative: Dentition poor, Mallampati 2, no thrush Head and Scalp: normocephalic Resp normal respiratory effort, no retractions and no use of accessory muscles Resp Narrative: Scattered diffuse end expiratory wheezes however wheezing has decreased in sever ity, no tachypnea or signs of distress, currently on 2 L nasal cannula Auscultation: wheezes; Negative for crackles or rhonchi Cardio regular rhythm, S1 normal heart sound, S2 normal heart sound, no murmurs, no rub, no gallops, no clicks and no JVD Cardio Narrative: Mild tachycardia GI normal to inspection, nondistended, normoactive bowel sounds, soft to palpation and non-tender Extremity no clubbing, cyanosis or edema Extremity Narrative: 2+ pedal pulses Neuro oriented x3, moves all extremities and no focal motor deficits Speech: speech normal Psych affect normal Psych Narrative: Extremely pleasant Assessment & Plan Assessment/Plan (1) Acute respiratory failure with hypoxia: (2) Elevated serum creatinine: (3) Hyperkalemia: (4) Hyperglycemia: (5) Rhinovirus: PLAN: Plan Acute hypoxic respiratory secondary to acute exacerbation of COPD due to rhinovi marco -Patient was tachypneic and hypoxic compared to baseline in the emergency department with oxygen saturations at 84% requiring 4 L nasal cannula -Patient is not O2 dependent at baseline -There was some initial concern that this might be related to exacerbation of heart failure however there does not seem to be a component of that at this time and I feel that this is most likely all related to acute exacerbation of COPD -COVID and flu are negative -Respiratory panel showed rhinovirus -Currently on 2 L supplemental oxygen via nasal cannula -Wean oxygen as able -Will check ambulatory pulse ox in a.m. -Continue IV steroids -As needed and scheduled DuoNebs -Continue to hold Lasix and reinitiate tomorrow -Incentive spirometer -Mucinex -Continue Acapella Elevated serum creatinine -Now back to baseline -Suspect related to overdiuresis -We will hold diuretics for another day -Discontinue IV fluids -Repeat lab in a.m. -Baseline serum creatinine is unclear as he has had no recent lab work done at this hospital in the last year -We will restart losartan 50 mg--> baseline dose is 150 Hyperkalemia -Resolved -Repeat renal function in a.m. DM-2 with hyperglycemia -Only on glipizide and metformin at home-on hold -Increase sliding scale dose to high-dose -Continue Accu-Cheks -A1c is 8.7 -With steroids we will start 10 units of Lantus--> a.m. fasting blood sugar was 228 Hypertension -Blood pressures better -Restart verapamil -Continue metoprolol -Restart 50 mg of losartan--> 150 his baseline home dose -Not sure and continue initiating the other 100 mg tomorrow History of atrial fibrillation -Currently normal sinus rhythm -Continue metoprolol -Hold verapamil as pressures are low -Continue Coumadin -A.m. INR is 2.3 -repeat INR in a.m. PAH -Who group 3 -Restart diuretics when appropriate--> likely tomorrow HFpEF -Echo done today shows an EF of 55% with a mildly dilated RV and mild to moder ate global right ventricular systolic dysfunction, right atrium is severely enlarged and left atrium is mildly enlarged, moderate tricuspid valve insufficiency with right ventricular systolic pressures of 55 mmHg -Patient now appears euvolemic -Lasix on hold History of stroke -Continue aspirin Hyperlipidemia -Continue atorvastatin BPH -Continue doxazosin Tobacco abuse -Patient still smoking about a half a pack a day -Recommend cessation -Nicotine replacement if needed History of alcohol abuse -Remote DVT prophylaxis -Full anticoagulated CODE STATUS -DNR CCA with no intubation Charges/Coding Visit Charges Inpatient E&M: 73126 Subs Hosp L2
[2022-06-23 19:50] LABS: Bedside Glucose 350 mg/dL (74-106)
[2022-06-23] MEDS: Atorvastatin Calcium 20 MG Tablet PO (20:39)
[2022-06-23] MEDS: Doxazosin 4 MG Tablet PO (20:39)
--- NOTE | 2022-06-23 22:49 | NURSING ---
Addendum entered by Zoë Graff 06/23/22 23:25: [id number] new orders Original Note: Spoke to MD- stated sepsis rule-out
[2022-06-24] VITALS (11 sets, daily range): BP systolic 121–134; BP diastolic 61–66; PULSE 87–112; RESP 16; TEMP 36.5–36.6; O2SAT 87–95
[2022-06-24 02:00] LABS: Bedside Glucose 219 mg/dL (74-106)
[2022-06-24] MEDS: 0.9% Saline Lock 10 ML Syringe IV ×2 (06:23→13:25)
[2022-06-24] MEDS: Insulin Lispro 100 UNIT/ML INSULN.PEN SC ×2 (06:29→11:34)
[2022-06-24] MEDS: Ipratropium/Albuterol Sulfate 3 ML AMPUL.NEB INHALATION ×2 (06:57→11:20)
[2022-06-24 07:26] LABS: Bedside Glucose 251 mg/dL (74-106)
[2022-06-24 07:40] LABS: Prothrombin Time (Protime)PT. 30.5 SECONDS (11.7-14.9)
[2022-06-24 08:00] LABS: Anion Gap 4 (5-15); BUN 55 mg/dL (7-18); Chloride 102 mmol/L (98-107); Creatinine, Serum 1.57 mg/dL (0.70-1.30); EST Glomerular Filtration Rate 45 mL/min (>60); Est Glom Filt Rate - Afr Amer 54 mL/min (>60); Estimated Creatinine Clearance 36.16 ml/min; Glucose 266 mg/dL (74-106); Potassium 4.9 mmol/L (3.5-5.1); Sodium Level 137 mmol/L (136-145)
[2022-06-24] MEDS: Insulin Glargine-YFGN 100 UNIT/ML Pen 10 UNIT SC (09:29)
[2022-06-24] MEDS: Metoprolol Tartrate 50 MG Tablet PO (09:29)
[2022-06-24] MEDS: Verapamil SR 180 MG CAPSULE PO (09:29)
[2022-06-24] MEDS: Losartan Potassium 50 MG Tablet PO (09:29)
--- NOTE | 2022-06-24 11:28 | DS.PCM_ITS ---
Providers Date of Admission: 06/21/22 Date of Discharge: 06/24/22 Primary Care Physician: Dr. Carl Loyd MD Reason For Visit: CHF EXACERBATION Diagnosis Discharge Diagnosis (1) Acute respiratory failure with hypoxia: Status: Acute Code(s): J96.01 - Acute respiratory failure with hypoxia (2) Elevated serum creatinine: Status: Acute Code(s): R79.89 - Other specified abnormal findings of blood chemistry (3) Hyperkalemia: Status: Acute Code(s): E87.5 - Hyperkalemia (4) Hyperglycemia: Status: Acute Code(s): R73.9 - Hyperglycemia, unspecified (5) Rhinovirus: Status: Acute Code(s): B34.8 - Other viral infections of unspecified site Medications at Discharge Home Medications atorvastatin 20 mg tablet 20 mg PO QHS CHOLESTEROL 12/18/13 losartan 100 mg tablet 150 mg PO DAILY BLOOD PRESSURE 12/18/13 vit C 250 mg-vit E 90 mg-zinc 40 mg-copper 1 [id number] capsule (PreserVision AREDS-2) 1 ea PO DAILY [facility] 12/18/13 metoprolol tartrate 50 mg tablet 50 mg PO BID BLOOD PRESSURE 10/31/20 verapamil 180 mg tablet,extended release 180 mg PO BID BLOOD PRESSURE 10/31/20 warfarin 2.5 mg tablet 2.5 mg PO [place] BLOOD THINNER 10/31/20 warfarin 5 mg tablet 5 mg PO MOTUWETHFRSA BLOOD THINNER 10/31/20 aspirin 81 mg tablet,delayed release 81 mg PO QODAY [facility] 06/21/22 doxazosin 4 mg tablet 4 mg PO QHS PROSTATE 06/21/22 furosemide 20 mg tablet 20 mg PO DAILY FLUID 06/21/22 glipizide 10 mg tablet, extended release 24 hr 10 mg PO DAILY DIABETES 06/21/22 losartan 50 mg tablet 50 mg PO DAILY BLOOD PRESSURE 06/21/22 metformin 500 mg tablet,extended release 24 hr 500 mg PO BID DIABETES 06/21/22 prednisone 10 mg tablet 10 mg PO DAILY #40 tabs 06/24/22 Hospital Course Procedures 2-D Echocardiogram and EKG Summary of Care Provided Minutes Spent on Discharge: 36 Hospital Course: Mr. Shetty is an 86-year-old white male who presented to emergency department at [facility] on 06/21/2022 with a chief complaint of shortness of breath. It had evidently been going on for several days. He initially thought it was related to heart failure and because to his primary care physician and was told to come the emergency department. He had been on 40 mg of Lasix but it was cut back to 20 mg. In the emergency department he was found to be hypoxic at 83% requiring 4 L nasal cannula. He is not O2 dependent at baseline but he is a smoker. In the emergency department he did receive a dose of IV Lasix. He denied any fever or chills, recent sick contacts and indicated that he and his had basically stayed home since COVID started. It was originally felt that this might be more likely related to heart failure however COPD exacerbation was not ruled out so he was actually treated as both initially to more data can be collected. He was placed on diuretics, aerosols, steroids. He tested negative for COVID and flu in the emergency department. Of viral respiratory panel was obtained and he tested positive for rhinovirus. I reviewed his data and his chest x-ray did not appear wet and his serum creatinine actually worsened with diuretics so we discontinued the diuretics on hospital day 2 and maximize his respiratory therapy. He was maintained on steroids, aggressive pulmonary toilet, started on Mucinex and given incentive spirometry and Pep with Acapella. He required 4 L of oxygen but we were able to titrate down to 2 L on hospital day 1. By hospitalization day 3 we were able to get him to room air at rest and he needed 2 L of oxygen to maintain sats greater than 88% with exertion. The patient was feeling much better and his wheezing had improved. He wanted to go home. We arranged for home oxygen and instructed the patient to utilize it with exertion. We also instructed him not to smoke while he was utilizing oxygen and this was given in verbal and written format at the time of discharge. He voiced understanding. We also placed him on a prednisone taper and this prescription was faxed to his pharmacy. He was discharged home on stable condition on 06/24/2022. He was instructed to follow-up with his primary care physician within the next 1 to 2 weeks. Discharge diagnoses: Acute hypoxic respiratory failure secondary to acute exacerbation of COPD Rhinovirus Elevated serum creatinine-resolved Hyperkalemia-resolved DM-2 Hypertension History of atrial fibrillation PAH HFpEF History of stroke Hyperlipidemia BPH Tobacco abuse Remote alcohol abuse Physical Exam Const alert, oriented x3, no apparent distress and well nourished Constitutional Narrative: Elderly white male sitting up on the edge of the bed facing the door, appears comfortable nontoxic, currently on 2 L nasal cannula but no signs of respiratory distress, very friendly and pleasant General Appearance: cooperative, comfortable, well kempt and well developed Orientation / Consciousness: awake, oriented to person, oriented to place and oriented to time Exam Limitations: no limitations HEENT normocephalic, head/scalp atraumatic and moist oral mucous membranes; Negative for hearing grossly normal bilaterally HEENT Narrative: Dentition is poor, Mallampati is 2, no thrush, marked hearing loss Eyes PERRL, EOMs intact bilaterally and conjunctivae normal Eyes Narrative: No scleral icterus Neck no lymphadenopathy and supple Neck Narrative: Trachea mid line, no thyroid enlargement Resp normal respiratory effort, no retractions, no use of accessory muscles and clear to auscultation bilaterally Resp Narrative: Diffusely diminished but clear with no ongoing wheezing Auscultation: Negative for crackles, rhonchi or wheezes Cardio regular rate, regular rhythm, S1 normal heart sound, S2 normal heart sound, no murmurs, no rub, no gallops, no clicks and no JVD GI normal to inspection, nondistended, normoactive bowel sounds, soft to palpation and non-tender Extremity no clubbing, cyanosis or edema Extremity Narrative: 2+ pedal pulses Skin no wounds, skin turgor normal and no jaundice Skin Narrative: Scattered seborrheic keratoses/actinic keratoses Neuro oriented x3, CN's II-XII intact bilaterally, moves all extremities and no focal motor deficits Speech: speech normal Psych affect normal Psych Narrative: Extremely pleasant Weight / BMI Weight Weight: 86.4 kg Body Mass Index (BMI) 28.2 ABG / Lab / Microbiology Data Result Diagrams: 06/23/22 06:48 06/24/22 06:13 Laboratory: Laboratory Results - last 24 hr 06/23/22 11:43: POC Glucose 433 H 06/23/22 15:41: POC Glucose 350 H 06/23/22 20:36: POC Glucose 219 H 06/24/22 06:13: PT 30.5 H, INR 3.0 06/24/22 06:13: Sodium 137, Potassium 4.9, Chloride 102, Carbon Dioxide 31.0, A nion Gap 4 L, BUN 55 H, Creatinine 1.57 H, Estim Creat Clear Calc 36.16, Est GFR (MDRD) Af Amer 54 L, Est GFR (MDRD) Non-Af 45 L, BUN/Creatinine Ratio 35.0 H, Glucose 266 H, Calcium 9.0 06/24/22 06:28: POC Glucose 251 H Microbiology: Microbiology 06/22/22 07:41 Mucosa - Nasopharyngeal Respiratory Panel (PCR) - Final Rhinovirus 06/21/22 15:20 Nasal Secretion SARS-CoV-2 & FLU Antigen (Rapid) - Final D/C Instructions Discharge Diet: Low fat / Low cholesterol and 1800 Calorie Control Diet Discharge Activity: Return to Normal Activity (Using oxygen with exertion) Meaningful Use Info Meaningful Use Diagnoses (Choose all that apply): None applicable Discharge Plan Admission Admit Date/Time: 06/21/22 17:49 Primary Reason for Your Visit: Shortness of breath Attending Provider: Lilia Yu Primary Care Provider: Carl Loyd Consulting Providers: Jostin Richardson Instructions Additional Instructions / Restrictions: 1. Please utilize oxygen while exerting yourself at home, okay to take oxygen off when at rest 2. DO NOT smoke or be around somebody who was smoking while you are on oxygen. Oxygen is flammable and will cause fire Discharge Orders/Prescriptions Prescriptions: New prednisone 10 mg tablet 10 mg PO DAILY Qty: 40 0RF Rx Instructions: 4 tablets x 4 days, 3 tablets x 4 days, 2 tablets x 4 days, 1 tablet x 4 days Continued atorvastatin 20 MG tablet 20 mg PO QHS losartan 100 MG tablet 150 mg PO DAILY Label Comments: blood pressure PreserVision AREDS-2 1 EACH capsule 1 ea PO DAILY verapamil 180 mg tablet extended release 180 mg PO BID warfarin 2.5 mg Tablet 2.5 mg PO [place] warfarin 5 mg Tablet 5 mg PO MOTUWETHFRSA metoprolol tartrate 50 mg tablet 50 mg PO BID losartan 50 mg tablet 50 mg PO DAILY glipizide 10 mg tablet extended release 24hr 10 mg PO DAILY aspirin 81 mg Tablet,Delayed Release (Dr/Ec) 81 mg PO QODAY doxazosin 4 mg Tablet 4 mg PO QHS furosemide 20 mg tablet 20 mg PO DAILY metformin 500 mg tablet extended release 24 hr 500 mg PO BID Referrals / Follow Up: Carl Loyd MD [Primary Care Provider] - Within 2 Weeks Disposition Disposition (needs filled in before D/C Order can be placed): Home, Self Care Charges/Coding Visit Charges Inpatient E&M: 46620 Disch Hosp
[2022-06-24 12:00] LABS: Bedside Glucose 385 mg/dL (74-106)
== END 2022-06-24 14:51 | disposition home or self-care (01) | DRG 190 ==
LOC: ED 16:14 → PCU 19:10
PROVIDERS: Admitting Provider Family Medicine; Emergency Provider Student in an Organized Health Care Education/Training Program; PCP Internal Medicine; Visit Provider Internal Medicine
DX: J44.1 Chronic obstructive pulmonary disease with (acute) exacerbation (principal); J96.01 Acute respiratory failure with hypoxia; I13.0 Hypertensive heart and chronic kidney disease with heart failure and stage 1 through stage 4 chronic kidney disease, or unspecified chronic kidney disease; I48.20 Chronic atrial fibrillation, unspecified; I50.32 Chronic diastolic (congestive) heart failure; I27.20 Pulmonary hypertension, unspecified; E11.22 Type 2 diabetes mellitus with diabetic chronic kidney disease; N18.31 Chronic kidney disease, stage 3a; E11.65 Type 2 diabetes mellitus with hyperglycemia; F17.210 Nicotine dependence, cigarettes, uncomplicated; E78.5 Hyperlipidemia, unspecified; E87.5 Hyperkalemia; B34.8 Other viral infections of unspecified site; N40.0 Benign prostatic hyperplasia without lower urinary tract symptoms; Z79.82 Long term (current) use of aspirin; Z79.84 Long term (current) use of oral hypoglycemic drugs; Z79.01 Long term (current) use of anticoagulants; Z79.899 Other long term (current) drug therapy; Z66 Do not resuscitate; Z86.73 Personal history of transient ischemic attack (TIA), and cerebral infarction without residual deficits
CPT/HCPCS: 36415; 71045; 80048; 82962; 83036; 83735; 83880; 84100; 84443; 84484; 85025; 85610; 87428; 87633; 93005; 93306; 94640; 94668; 99251; 99285; J7030; A4216; G0463; J1940